=== PATIENT | male | born 1945 | race Caucasian/White ===

== ENCOUNTER 2017-04-08 05:04 | Inpatient (IN) ==
[2017-04-04 15:50] LABS: Appearance,Urine CLEAR; Bilirubin,Urine NEG (NEG); Color,Urine YELLOW; Glucose,Urine (UA) NEGATIVE (NEG); Leukocyte Esterase,Urine NEG /uL (NEG); Nitrate,Urine NEG (NEG); Protein,Urine NEG (NEG); Specific Gravity,Urine 1.009 (1.000-1.035); Urine Blood NEG mg/dL (<0.03); Urobilinogen,Urine NEG (NEG)
[2017-04-04 18:19] LABS: Basophils # (Auto) 0 K/mcL (0.0-0.3); Basophils % (Auto) 0.3 % (0.0-2.0); Eosinophils # (Auto) 0 K/mcL (0.0-0.7); Eosinophils % (Auto) 0.2 % (0.0-7.0); Granulocytes % (Auto) 80.1 % (38.0-78.0); Lymphocytes # (Auto) 0.5 K/mcL (1.5-4.8); Lymphocytes % (Auto) 12.6 % (15.5-49.0); Mean Corpuscular HGB Conc 33.8 g/dL (31.0-36.0); Mean Corpuscular Hemoglobin 36.8 pg (26.0-34.0); Monocytes # (Auto) 0.3 K/mcL (0.1-0.9); Monocytes % (Auto) 6.8 % (1.0-12.0); Platelet Count 291 K/mcL (140-440); RBC 3.02 M/mcL (4.50-5.90); Red Cell Distribution Width 20.8 % (11.5-14.5)
[2017-04-04 18:21] LABS: Blood Urea Nitrogen 5 mg/dl (8-23)
[~2017-04-08 05:04] MED LIST: ACETAMINOPHEN 500 MG TABLET PO SCH; CELECOXIB 200 MG CAPSULE PO SCH; PREGABALIN 75 MG CAPSULE PO SCH; ceFAZolin 1 GM VIAL IV SCH; oxyCODONE 10 MG TAB.ER.12H PO SCH
[2017-04-08] MEDS ORDERED: fentaNYL 250 MCG/5 ML VIAL IV ONE (07:35)
[2017-04-08] MEDS ORDERED: PROPOFOL 200 MG/20 ML VIAL IV ONE (07:35)
[2017-04-08] MEDS ORDERED: HYDROmorphone 2 MG/ML SYRINGE IV ONE (07:35)
[2017-04-08] MEDS ORDERED: GLYCOPYRROLATE 0.2 MG/ML VIAL IV ONE (07:35)
[2017-04-08] MEDS ORDERED: ePHEDrine 50 MG/ML AMPUL IV ONE (07:35)
[2017-04-08] MEDS ORDERED: ONDANSETRON 4 MG/2 ML VIAL IV ONE (07:35)
[2017-04-08] MEDS ORDERED: MIDAZOLAM 5 MG/5 ML VIAL IV ONE (07:35)
[2017-04-08] MEDS ORDERED: PHENYLEPHRINE 10 MG/ML VIAL IV ONE (07:35)
[2017-04-08] MEDS ORDERED: DEXAMETHASONE 10 MG/ML VIAL IV ONE (07:35)
[2017-04-08] MEDS ORDERED: LIDOCAINE HCL/PF 100 MG/5 ML SYRINGE IV ONE (07:35)
[2017-04-08] MEDS ORDERED: GENTAMICIN SULFATE 800 MG/20 ML VIAL IR ONE (08:02)
[2017-04-08] MEDS ORDERED: BENZOCAINE/MENTHOL 1 LOZENGE PO PRN ×2 (08:47→09:14)
[2017-04-08] MEDS ORDERED: LACTATED RINGERS 250 ML IV PRN (08:47)
[2017-04-08] MEDS ORDERED: fentaNYL 100 MCG/2 ML VIAL IV PRN (08:47)
[2017-04-08] MEDS ORDERED: METHOCARBAMOL 1,000 MG/10 ML VIAL IV PRN (08:47)
[2017-04-08] MEDS ORDERED: HYDROmorphone 2 MG/ML SYRINGE IV PRN ×2 (08:47→09:14)
[2017-04-08] MEDS ORDERED: FLUMAZENIL 0.1 MG/ML ML IV PRN (08:47)
[2017-04-08] MEDS ORDERED: MEPERIDINE 25 MG/ML SYRINGE IV PRN (08:47)
[2017-04-08] MEDS ORDERED: ONDANSETRON 4 MG/2 ML VIAL IV PRN ×2 (08:47→09:14)
[2017-04-08] MEDS ORDERED: IPRATROPIUM/ALBUTEROL 3 ML AMPUL.NEB NEB PRN (08:47)
[2017-04-08] MEDS ORDERED: diphenhydrAMINE 50 MG/ML VIAL IV PRN (08:47)
[2017-04-08] MEDS ORDERED: NALOXONE HCL 0.4 MG/ML VIAL IV PRN (08:47)
[2017-04-08] MEDS ORDERED: LACTATED RINGERS 1,000 ML IV SCH (09:00)
[2017-04-08] MEDS ORDERED: ACETAMINOPHEN 325 MG TABLET PO PRN (09:14)
[2017-04-08] MEDS ORDERED: TEMAZEPAM 15 MG CAPSULE PO PRN (09:14)
[2017-04-08] MEDS ORDERED: TRANEXAMIC ACID 1,000 MG/10 ML VIAL IV ONE (09:14)
[2017-04-08] MEDS ORDERED: KETOROLAC 15 MG/ML VIAL IV PRN (09:14)
[2017-04-08] MEDS ORDERED: MAGNESIUM HYDROXIDE 30 ML ORAL.SUSP PO PRN (09:14)
[2017-04-08] MEDS ORDERED: BISACODYL 10 MG SUPP.RECT PR PRN (09:14)
[2017-04-08] MEDS ORDERED: FLEETS ADULT ENEMA PR PRN (09:14)
[2017-04-08] MEDS ORDERED: POLYETHYLENE GLYCOL 3350 17 GM PACKET PO PRN (09:14)
--- NOTE | 2017-04-08 09:14 | Brief Operative Note ---
Date of procedure: 04/08/17 Pre-op diagnosis: Right hip avn and djd Post-op diagnosis: same Procedure: Right Total hip cemented Grafts/Implants: Yes Anesthesia: GETA Findings: avn Surgeon: Tino Reyes Radiator Cleaner: Jarvis Gibson Estimated blood loss (cc): 100 Specimens Removed/Pathology: none sent Condition: stable Disposition: PACU
[2017-04-08] MEDS ORDERED: ALBUTEROL SULFATE 1 PUFF INHALER INH PRN (09:19)
[2017-04-08] MEDS ORDERED: guaiFENesin 600 MG TAB.SR.12H PO PRN (09:30)
[2017-04-08] MEDS ORDERED: WARFARIN 5 MG TABLET PO SCH ×2 (09:30→14:00)
--- NOTE | 2017-04-08 10:07 | XRay Report ---
CLINICAL INFORMATION: Postop total hip prostheses COMPARISON: 11/16/2013 FINDINGS: The right total hip is anatomically aligned. Small amount of heterotopic ossification in the superior pericapsular region region is noted with soft tissue swelling. Enlargement of the inferior [place] acetabulum is appreciated. The left hip prostheses is anatomically aligned without evidence of loosening or infection. IMPRESSION: Right total hip prostheses is anatomically aligned. There is enlargement of the inferior [place] acetabulum compared to preoperative studies. Interpreted and Authenticated by: Hira Hanks 04/08/17
[2017-04-08] MEDS: 0.45 % SODIUM CHLORIDE 1,000 ML IV SCH ×3 (10:45→20:49)
[2017-04-08] MEDS: 0.9 % SODIUM CHLORIDE 10 ML SYRINGE IV SCH ×2 (12:46→20:49)
[2017-04-08] MEDS: ceFAZolin 1 GM VIAL IV SCH (16:10)
[2017-04-08] MEDS: BUDESONIDE 3 MG CAP.XL.24H PO SCH ×2 (16:14→20:48)
[2017-04-08] MEDS ORDERED: WARFARIN 10 MG TABLET PO ONE (17:15)
[2017-04-08] MEDS: POTASSIUM CHLORIDE 10 MEQ TABLET PO SCH ×2 (17:54→20:47)
[2017-04-08] MEDS ORDERED: WARFARIN 5 MG TABLET PO ONE (18:00)
[2017-04-08] MEDS: oxyCODONE/APAP 5/325MG TABLET PO PRN (18:07)
[2017-04-08] MEDS: MAGNESIUM OXIDE 400 MG TABLET PO SCH (20:47)
[2017-04-08] MEDS: oxyCODONE 10 MG TAB.ER.12H PO SCH (20:47)
[2017-04-08] MEDS: GLUCOSAMINE HCL 500 MG PO SCH (20:48)
[2017-04-08] MEDS: Budesonide/Formoterol Fumarate [Symbicort] 160-4.5 mcg Inhaler INH SCH (20:48)
[2017-04-08] MEDS: DOCUSATE SODIUM 100 MG CAPSULE PO SCH (20:48)
[2017-04-08] MEDS: METOPROLOL TARTRATE 25 MG TABLET PO SCH (20:48)
[2017-04-08] MEDS: TRAVOPROST 0.004% OU SCH (20:48)
[2017-04-08] MEDS: EYE OU SCH (20:48)
[2017-04-08] MEDS: SENNOSIDES 1 TABLET PO SCH (20:48)
[2017-04-08] MEDS ORDERED: ASPIRIN 325 MG ENTERIC COATED TABLET PO SCH (21:00)
[2017-04-09] MEDS: ceFAZolin 1 GM VIAL IV SCH (00:05)
[2017-04-09] MEDS: oxyCODONE/APAP 5/325MG TABLET PO PRN ×3 (03:03→16:45)
[2017-04-09] MEDS: 0.45 % SODIUM CHLORIDE 1,000 ML IV SCH ×4 (03:50→23:45)
[2017-04-09] MEDS: 0.9 % SODIUM CHLORIDE 10 ML SYRINGE IV SCH ×3 (05:08→20:30)
--- NOTE | 2017-04-09 07:56 | Orthopedic Progress Note ---
Subjective Patient information: Note initiated : 04/09/17 at 7:55 am Service Date, if different from initiated Date: [] Patient: Christian Andrews 71 y/o M admitted on 04/08/17 for Right Total Hip Arthroplasty. Chief Complaint: [minimal pain and slept well and no cp and no sob] Objective Vital signs: Vital Signs Temp Pulse Resp BP BP Pulse Ox 04/09/17 07:07 97.6 F 20 98/56 98 04/09/17 05:00 95 04/09/17 03:05 98.5 F 77 12 79/51 106/58 97 04/09/17 03:00 97 04/09/17 00:00 98.8 F 78 12 93/57 98 04/08/17 23:00 98 04/08/17 21:00 97 04/08/17 20:30 90/52 04/08/17 19:59 98.2 F 83 12 90/48 99 04/08/17 19:47 92 04/08/17 19:00 90 04/08/17 17:00 97 04/08/17 16:39 97.3 F 20 101/67 98 04/08/17 15:00 95 04/08/17 13:50 77 103/63 97 04/08/17 13:00 98 04/08/17 12:50 97.0 F 78 20 98 04/08/17 11:50 97.0 F 79 20 96 04/08/17 11:20 69 18 91/53 97 04/08/17 11:15 98 04/08/17 11:05 69 102/64 100 04/08/17 10:51 96.6 F L 78 14 103/64 100 04/08/17 10:35 97.2 F 82 18 109/71 97 04/08/17 10:15 75 20 116/46 95 04/08/17 10:00 75 12 111/68 100 04/08/17 09:42 77 13 113/73 100 04/08/17 09:27 97.6 F 73 10 L 127/79 100 Intake and Output 04/08/17 04/09/17 04/09/17 21:59 05:59 13:59 Intake Total 1600 / 1600 1032 / 1032 Output Total 575 / 575 210 / 210 Balance 1600 / 1600 457 / 457 -210 / -210 Intake: IV 1000 / 1000 832 / 832 Sodium Chloride 0.45% 1, 1000 / 1000 832 / 832 000 ml @ 100 mls/hr IV . Q10H CLEMENTE Rx#:[id number] Oral 600 / 600 200 / 200 Output: Void Amount 575 / 575 210 / 210 Straight 500 / 500 Other: Meal Dinner Percent of Meal Consumed 100% Feeding Ability Independent Weight 209 lb 8 oz Intake & Output: Intake & Output 04/08/17 04/09/17 04/09/17 21:59 05:59 13:59 Intake Total 1600 / 1600 1032 / 1032 Output Total 575 / 575 210 / 210 Balance 1600 / 1600 457 / 457 -210 / -210 Weight 209 lb 8 oz Intake: IV 1000 / 1000 832 / 832 Sodium Chloride 0.45% 1, 1000 / 1000 832 / 832 000 ml @ 100 mls/hr IV . Q10H CLEMENTE Rx#:[id number] Oral 600 / 600 200 / 200 Output: Void Amount 575 / 575 210 / 210 Straight 500 / 500 Other: Meal Dinner Percent of Meal Consumed 100% Feeding Ability Independent Incision clean and dry: Yes Dressing: Yes clean Weight bearing status: full Neurological exam IM: Yes oriented X3, Yes neurovascular intact Extremities exam IM: Yes Foot pink and warm (plan dc to nh), Yes neurovascular intact - Allied Health Allied health notes reviewed: social work - Labs CBC & BMP: 04/09/17 04:00 04/04/17 14:37 Labs: Orthopedic Labs 04/09/17 04/04/17 04:00 14:36 PT 13.3 13.5 INR 1.0 1.0 APTT 28 04/09/17 04/04/17 04:00 14:36 Hgb 11.1 L Hct 23.7 L 33.0 L
[2017-04-09] MEDS: OMEPRAZOLE 20 MG CAPSULE PO SCH (07:57)
[2017-04-09] MEDS: FERROUS GLUCONATE 324 MG TABLET PO SCH (10:09)
[2017-04-09] MEDS: MULTIVIT,THER IRON,CA,FA & MIN 1 TABLET PO SCH (10:10)
[2017-04-09] MEDS: ENOXAPARIN 40 MG/0.4 ML SYRINGE SQ SCH (10:10)
[2017-04-09] MEDS: MAGNESIUM OXIDE 400 MG TABLET PO SCH ×2 (10:10→20:29)
[2017-04-09] MEDS: POTASSIUM CHLORIDE 10 MEQ TABLET PO SCH ×4 (10:10→20:29)
[2017-04-09] MEDS: FLUoxetine HCL 20 MG CAPSULE PO SCH (10:10)
[2017-04-09] MEDS ORDERED: 0.9 % SODIUM CHLORIDE 250 ML IV SCH (10:45)
[2017-04-09] MEDS: DOCUSATE SODIUM 100 MG CAPSULE PO SCH ×2 (11:23→20:29)
[2017-04-09] MEDS: METOPROLOL TARTRATE 25 MG TABLET PO SCH ×2 (11:24→20:30)
[2017-04-09] MEDS: LOSARTAN 50 MG TABLET PO SCH (11:24)
[2017-04-09] MEDS: MERCAPTOPURINE 50 MG TABLET PO SCH (11:28)
[2017-04-09] MEDS: HYDROCHLOROTHIAZIDE 25 MG TABLET PO SCH (11:28)
[2017-04-09] MEDS: oxyCODONE 10 MG TAB.ER.12H PO SCH ×2 (11:28→20:29)
[2017-04-09] MEDS: BALSALAZIDE DISODIUM 750 MG PO SCH (11:29)
[2017-04-09] MEDS: Budesonide/Formoterol Fumarate [Symbicort] 160-4.5 mcg Inhaler INH SCH ×2 (11:29→20:29)
[2017-04-09] MEDS: GLUCOSAMINE HCL 500 MG PO SCH ×2 (11:29→20:29)
[2017-04-09] MEDS: SAW PALMETTO 160 MG PO SCH (11:30)
[2017-04-09] MEDS: BUDESONIDE 3 MG CAP.XL.24H PO SCH ×3 (11:30→20:30)
[2017-04-09] MEDS: WARFARIN 5 MG TABLET PO SCH (13:44)
[2017-04-09] MEDS: TRAVOPROST 0.004% OU SCH (20:29)
[2017-04-09] MEDS: EYE OU SCH (20:29)
[2017-04-09] MEDS: SENNOSIDES 1 TABLET PO SCH (20:29)
[2017-04-10] MEDS: oxyCODONE/APAP 5/325MG TABLET PO PRN ×4 (03:03→18:03)
[2017-04-10] MEDS: 0.9 % SODIUM CHLORIDE 10 ML SYRINGE IV SCH ×3 (04:56→20:54)
--- NOTE | 2017-04-10 07:17 | Orthopedic Progress Note ---
Subjective Patient information: Note initiated : 04/10/17 at 7:16 am Service Date, if different from initiated Date: [] Patient: Christian Andrews 71 y/o M admitted on 04/08/17 for Right Total Hip Arthroplasty. Chief Complaint: [confused but alert and mobile with minimal pain] Objective Vital signs: Vital Signs Temp Pulse Resp BP Pulse Ox 04/10/17 04:56 96 04/10/17 03:26 98.3 F 79 12 158/74 95 04/10/17 03:00 95 04/10/17 00:53 97 04/10/17 00:00 98.4 F 74 12 148/73 100 04/09/17 22:58 96 04/09/17 21:00 97 04/09/17 19:47 97.9 F 77 12 118/66 97 04/09/17 19:00 97 04/09/17 17:00 94 04/09/17 16:52 104/62 04/09/17 16:50 110/69 04/09/17 16:45 129/75 04/09/17 15:22 98.0 F 18 104/65 96 04/09/17 14:56 95 04/09/17 13:00 94 04/09/17 11:42 97.6 F 18 119/63 93 04/09/17 11:00 94 04/09/17 10:22 90/51 98 04/09/17 09:00 98 04/09/17 08:42 87/56 Intake and Output 04/09/17 04/10/17 04/10/17 21:59 05:59 13:59 Intake Total 1460 / 1460 600 / 600 Output Total 1200 / 1200 925 / 925 Balance 260 / 260 -325 / -325 Intake: Oral 1160 / 1160 600 / 600 Blood Product 300 / 300 Output: Urine Catheter Amount 1200 / 1200 925 / 925 Other: Meal Dinner Percent of Meal Consumed 100% Weight 210 lb 8 oz Intake & Output: Intake & Output 04/09/17 04/10/17 04/10/17 21:59 05:59 13:59 Intake Total 1460 / 1460 600 / 600 Output Total 1200 / 1200 925 / 925 Balance 260 / 260 -325 / -325 Weight 210 lb 8 oz Intake: Oral 1160 / 1160 600 / 600 Blood Product 300 / 300 Output: Urine Catheter Amount 1200 / 1200 925 / 925 Other: Meal Dinner Percent of Meal Consumed 100% Incision: Yes healing Incision clean and dry: Yes Dressing: Yes clean Weight bearing status: full Neurological exam IM: Yes neurovascular intact Extremities exam IM: Yes Foot pink and warm, Yes neurovascular intact (will need snf because of weakness) - Labs CBC & BMP: 04/09/17 04:00 04/04/17 14:37 Labs: Orthopedic Labs 04/10/17 04/09/17 04/04/17 05:41 04:00 14:36 PT Pending 13.3 13.5 INR Pending 1.0 1.0 APTT 28 04/09/17 04/04/17 04:00 14:36 Hgb 11.1 L Hct 23.7 L 33.0 L
--- NOTE | 2017-04-10 07:18 | Discharge Summary ---
Ortho Discharge - TKA - Patient Instructions Diet: Regular Diet Activity: activity as tolerated, weight bearing as tolerated Total Knee Protocol: For Total Knee: Start ROM ADOLFO with stationary bike or rocking chair. Work on gaining full extension of knee. Posterior dislocation precautions provided. Hip abductor strengthening and gait training instructions provided. Apply Cryocuff as instructed. Dressing Care: Aquacel Ag - leave on for 5 days Patient Education: Total Hip Replacement (DC) Additional Instructions: Discharge Instructions: Do the exercises at home that physical therapy gave you. Take your prescription, photo ID, insurance cards, and current medication list with you to your first physical therapy appointment. Take your prescription to greens picker any medication or equipment (such as walker, crutches, toilet riser or C.P.M.) Wear comfortable clothing for your physical therapy. Weight bearing as tolerated. If you have the Aquacel Ag dressing, leave in place for 7 days then remove. If dressing becomes soiled (turns black), remove and use gauze 4x4 dressing and silvasorb ointment and change daily. Keep incision clean and dry. If you have Dermabond (a dressing with a mesh-like appearance), leave open to air. You may start showering on post op day #2. The Dermabond dressing can get wet, do not scrub dressing. Pat dry. To avoid constipation while taking any narcotic pain medication, take an over the counter stool softener/laxative. Use your Cryocuff or ice packs as directed, on for 20 minutes at a time throughout the day. This and elevation will help with pain and swelling. Call your physician for fevers above 100.5 or pain not controlled by medication. Your prescriptions are with your discharge information. Some medications were electronically transmitted to your pharmacy of choice. - Follow Up Plan Follow Up Appointments: Tino Reyes MD [Physician] - 04/23/17 9:20 am Disposition: Xfer SNF Prognosis: Good Rehab Potential: Good I certify that the patient requires SNF services: Yes (post total hip) Overall status at discharge: patient is progressing back to baseline
[2017-04-10] MEDS: OMEPRAZOLE 20 MG CAPSULE PO SCH (07:38)
[2017-04-10] MEDS: DOCUSATE SODIUM 100 MG CAPSULE PO SCH ×2 (08:28→21:39)
[2017-04-10] MEDS: POTASSIUM CHLORIDE 10 MEQ TABLET PO SCH ×4 (08:28→20:52)
[2017-04-10] MEDS: FERROUS GLUCONATE 324 MG TABLET PO SCH (08:28)
[2017-04-10] MEDS: FLUoxetine HCL 20 MG CAPSULE PO SCH (08:29)
[2017-04-10] MEDS: LOSARTAN 50 MG TABLET PO SCH (08:29)
[2017-04-10] MEDS: HYDROCHLOROTHIAZIDE 25 MG TABLET PO SCH (08:29)
[2017-04-10] MEDS: METOPROLOL TARTRATE 25 MG TABLET PO SCH ×2 (08:29→20:52)
[2017-04-10] MEDS: MAGNESIUM OXIDE 400 MG TABLET PO SCH ×2 (08:29→20:52)
[2017-04-10] MEDS: MULTIVIT,THER IRON,CA,FA & MIN 1 TABLET PO SCH (08:29)
[2017-04-10] MEDS: ENOXAPARIN 40 MG/0.4 ML SYRINGE SQ SCH (08:29)
[2017-04-10] MEDS: BUDESONIDE 3 MG CAP.XL.24H PO SCH ×3 (08:30→21:39)
[2017-04-10] MEDS: SAW PALMETTO 160 MG PO SCH (08:30)
[2017-04-10] MEDS: GLUCOSAMINE HCL 500 MG PO SCH ×2 (08:31→21:40)
[2017-04-10] MEDS: MERCAPTOPURINE 50 MG TABLET PO SCH (08:31)
[2017-04-10] MEDS: BALSALAZIDE DISODIUM 750 MG PO SCH (08:31)
[2017-04-10] MEDS: Budesonide/Formoterol Fumarate [Symbicort] 160-4.5 mcg Inhaler INH SCH ×2 (08:38→20:53)
[2017-04-10] MEDS: 0.45 % SODIUM CHLORIDE 1,000 ML IV SCH ×2 (11:34→21:41)
[2017-04-10] MEDS: WARFARIN 5 MG TABLET PO SCH (13:47)
[2017-04-10] MEDS: EYE OU SCH (20:53)
[2017-04-10] MEDS: TRAVOPROST 0.004% OU SCH (20:53)
[2017-04-10] MEDS: SENNOSIDES 1 TABLET PO SCH (21:40)
[2017-04-11] MEDS: 0.9 % SODIUM CHLORIDE 10 ML SYRINGE IV SCH (05:46)
[2017-04-11] MEDS: OMEPRAZOLE 20 MG CAPSULE PO SCH (07:44)
[2017-04-11] MEDS: POTASSIUM CHLORIDE 10 MEQ TABLET PO SCH (07:45)
[2017-04-11] MEDS: 0.45 % SODIUM CHLORIDE 1,000 ML IV SCH (10:45)
[2017-04-11] MEDS: DOCUSATE SODIUM 100 MG CAPSULE PO SCH (10:46)
[2017-04-11] MEDS: LOSARTAN 50 MG TABLET PO SCH (10:47)
[2017-04-11] MEDS: MAGNESIUM OXIDE 400 MG TABLET PO SCH (10:47)
[2017-04-11] MEDS: ENOXAPARIN 40 MG/0.4 ML SYRINGE SQ SCH (10:47)
[2017-04-11] MEDS: MULTIVIT,THER IRON,CA,FA & MIN 1 TABLET PO SCH (10:47)
[2017-04-11] MEDS: METOPROLOL TARTRATE 25 MG TABLET PO SCH (10:47)
[2017-04-11] MEDS: HYDROCHLOROTHIAZIDE 25 MG TABLET PO SCH (10:48)
[2017-04-11] MEDS: FLUoxetine HCL 20 MG CAPSULE PO SCH (10:48)
[2017-04-11] MEDS: BUDESONIDE 3 MG CAP.XL.24H PO SCH (10:48)
[2017-04-11] MEDS: BALSALAZIDE DISODIUM 750 MG PO SCH (10:49)
[2017-04-11] MEDS: GLUCOSAMINE HCL 500 MG PO SCH (10:49)
[2017-04-11] MEDS: Budesonide/Formoterol Fumarate [Symbicort] 160-4.5 mcg Inhaler INH SCH (10:49)
[2017-04-11] MEDS: MERCAPTOPURINE 50 MG TABLET PO SCH (10:49)
[2017-04-11] MEDS: SAW PALMETTO 160 MG PO SCH (10:50)
[2017-04-11] MEDS: FERROUS GLUCONATE 324 MG TABLET PO SCH (10:52)
--- NOTE | 2017-04-12 14:19 | Operative Note ---
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 PROCEDURE: Right total hip arthroplasty, cemented components. SURGEON: Tino Reyes MD PHYSICALLY IMPAIRED TEACHER: Jarvis Gibson PA-C. ANESTHESIA: General LMA anesthesia. COMPLICATIONS CONDITION: Stable. DISPOSITION: To PACU. ESTIMATED BLOOD LOSS: About 100 mL DESCRIPTION OF PROCEDURE: The patient was brought to the operating room and put to sleep with general anesthesia. Once asleep, the patient had the right hip sterilely prepped and draped in the usual sterile fashion and confirmed as the operative site. Ioban had been placed over the skin and a superior posterior approach performed. Once we dislocated the hip showing severe deformity of the femoral head we then made our neck cut at prescribed length prior to templating before the case. Once this was done, we subluxed the hip anteriorly and then reamed the cup up to a size 53 and implanted a 54 cup with the large 40 mm screw with good fixation, 40 degrees of inclination and 20 degrees of anteversion was positioned in the cup. Large spurs were removed and the remnants of the labrum was removed as well. We placed a dual mobility liner. Once this was done, we then broached up to the size 7, cemented into place a size 7 stem and then trialed this with a standard poly with a standard neck length and a 50 mm head. Once this had been reduced this was somewhat unstable and images confirmed that leg lengths were nearly perfectly equal. At this point, I then cemented into place a size 7 cemented stem with 15 to 20 degrees of anteversion. Once dried, we then trialed +2.5 neck length with a dual mobility ball and head. This was reduced. This gave us much better stability. The final implant was placed. We then irrigated thoroughly and then conditioned the capsule and repaired this into place. Once this was done, we then irrigated thoroughly and closed the fascial layer with 0 Vicryl and closed the skin with 2-0 Vicryl and dipika superficially. The patient tolerated this well. There was no complication. Sterile bandage was applied. The patient left the operating room with a hip abduction pillow for safety. KARINA:andrea Job ID: [id number] Doc ID: [id number] Tino Reyes MD
== END 2017-04-11 11:30 | DRG 470 ==
LOC: MEDSUR 05:04
PROVIDERS: ADMIT Orthopaedic Surgery; ATTEND Orthopaedic Surgery

== ENCOUNTER 2017-06-18 15:52 | Inpatient (IN) ==
--- NOTE | 2017-06-18 16:37 | Emergency Department Note ---
Recheck HPI - General Chief Complaint: Recheck/Abnormal Lab/Rx Stated Complaint: neck pain, full body pain Time Seen by Provider: 06/18/17 16:01 Source: patient Mode of arrival: wheelchair Limitations: no limitations - History of Present Illness HPI Narrative: 71-year-old male seen yesterday in the ED for a fall on the sidewalk. drinking a lot of alcohol. Does not remember much. Had a head and facial CT were read as negative. The radiologist did call the patient in do some C-spine x-rays patient states he has had chronic neck pain with no acute pain. Pain is located in the lower cervical spine region not in the upper. Latonya was concerned somewhat around the dens region. She has been put in a c-collar when he arrives. Seems to have had no alcohol today. INR was 4.0 yesterday and he was advised to hold his Coumadin. Patient states he has a history of heavy alcohol usage - Related Data Home Medications Medication Instructions Recorded Confirmed Ascorbic Acid [Ascorbic Acid with 500 mg PO QDAY 04/15/15 06/17/17 Rh] Aspirin [Ecotrin] 81 mg PO QDAY 04/15/15 06/17/17 Cholecalciferol (Vitamin D3) 2,000 unit PO QIDP 04/15/15 06/17/17 [Vitamin D3] Ipratropium/Albuterol Sulfate 2 puff INH QID PRN 04/15/15 06/17/17 [Combivent] Nitroglycerin [Nitrostat] 0.4 mg SL Q5M PRN 04/15/15 06/17/17 Saw Purcell 160 mg PO QDAY 04/15/15 06/17/17 glucosamine HCl 500 mg tablet 500 mg PO BID tab 11/14/15 06/17/17 multivitamin with minerals capsule 1 tab-cap PO QDAY cap 11/14/15 06/17/17 balsalazide 750 mg capsule 1 cap PO DAILY 30 Days 02/15/17 06/17/17 docusate sodium 100 mg capsule 100 mg PO BID PRN 05/15/17 06/17/17 adalimumab 40 mg/0.8 mL 40 mg SUB-Q QWEEK ml 05/20/17 06/17/17 subcutaneous syringe kit Previous Rx's Medication Instructions Recorded travoprost (benzalkonium) 0.004 % 1 drp OPHTHALMIC HS #5 ml 05/01/16 eye drops ferrous gluconate 324 mg (38 mg 324 mg PO QDAY #100 tab 05/10/16 iron) tablet guaifenesin 400 mg tablet 400 mg PO Q4H PRN #30 tab 09/20/16 atorvastatin 40 mg tablet 20 mg PO QDAY #30 tab 09/26/16 Permanent Disabled Parking #2 each 10/25/16 albuterol sulfate HFA 90 2 puff INHALATION Q4HP PRN #8.5 g 12/04/16 mcg/actuation aerosol inhaler magnesium oxide 400 mg tablet 400 mg PO BID #60 tab 12/10/16 miscellaneous medical supply misc See Dose Instructions .ROUTE 12/10/16 .MEDSUPPLY #1 each budesonide-formoterol HFA 160 2 puff INHALATION BID #10.2 g 01/14/17 mcg-4.5 mcg/actuation aerosol inhaler oxycodone-acetaminophen 5 mg-325 1 tab PO Q4H PRN #60 tab 05/10/17 mg tablet fludrocortisone 0.1 mg tablet 0.1 mg PO BID #60 tab 05/20/17 hydrocodone 7.5 mg-acetaminophen 1 tab PO Q6H PRN #100 tab 05/20/17 325 mg tablet metoprolol tartrate 25 mg tablet 25 mg PO BID #60 tab 05/28/[address] - ER 3 mg 3 mg PO TID #90 each 06/13/17 capsule,delayed,extended release fluoxetine 20 mg capsule 20 mg PO DAILY #30 cap 06/13/17 mercaptopurine 50 mg tablet 50 mg PO QDAY #30 tab 06/13/17 omeprazole 20 mg capsule,delayed 20 mg PO QDAY #30 cap 06/13/17 release potassium chloride ER 20 mEq 30 meq PO QID #180 tab 06/14/17 tablet,extended release warfarin 5 mg tablet 10 mg PO .COMPLEX #20 tab 06/18/17 Allergies Allergy/AdvReac Type Severity Reaction Status Date / Time No Known Drug Allergies Allergy Verified 03/25/17 11:40 Review of Systems All systems ED: reviewed and negative except as stated. Constitutional: Denies: fever, chills Eyes: Denies: eye pain ENT ED: Denies: ear pain Cardiovascular: Denies: chest pain Respiratory: Denies: cough, dyspnea Musculoskeletal: Reports: as per HPI, other (Left sided facial contusions, left knee contusion with abrasions) Past Medical History - Past Medical History Medical history: Reports: arthritis, asthma, coronary artery disease, GERD, hyperlipidemia, hypertension, pulmonary embolus, other (inflammatory bowel disease, substance abuse, chronic anemia). Denies: CVA, diabetes, myocardial infarction Surgical history ED: Reports: angioplasty/stent, hip replacement Family history: Reports: non-contributory - Social History smoking status: Former smoker Alcohol use: Reports: Heavy (in past states quit 1 m ago), Recent Drug use: Reports: unknown (substance abuse in past) Physical Exam - General Limitations: no limitations General appearance: alert - Head Head exam: other (left side facial contusions) - Eye Eye exam: Present: normal appearance, PERRL - ENT ENT exam: normal exam, normal oropharynx, mucous membranes moist - Neck Neck exam: Present: trachea midline, tenderness - Chest Chest inspection: Present: normal inspection, symmetric chest wall rise. Absent : tenderness - Respiratory Respiratory exam: Present: normal lung sounds bilaterally. Absent: respiratory distress, wheezes - Cardiovascular Cardiovascular exam: Present: regular rate, normal rhythm. Absent: bradycardia , tachycardia - Abdominal Exam Abdominal exam: Present: soft, normal bowel sounds. Absent: distention, tenderness, guarding, rebound, rigidity - exam: Present: normal inspection. Absent: testicular tenderness - Extremities Exam Extremities exam: Present: normal inspection, full ROM. Absent: tenderness - Back Exam Back exam: Present: normal inspection, full ROM. Absent: tenderness - Expanded Neurological Exam Patient oriented to: Present: person, place, time Speech: Present: fluid speech Cranial nerves: EOM function (II, III, IV, ): Normal, facial sensation (V): Normal, facial palsy (VII): Normal, gag reflex (IX): Normal, spinal accessory function (XI): Normal, tongue deviation (XII): Normal Cerebellar function: finger to nose: Normal Motor strength - LUE: 4/5 Motor strength - RUE: 4/5 Motor strength - LLE: 4/5 Motor strength - RLE: 4/5 Upper motor neuron exam: Babinski sign: Absent bilaterally Sensory exam upper extremity: Normal: light touch, pin prick Sensory exam lower extremity: Normal: light touch, pin prick DTR: 2+: patellar (L), patellar (R) Coma Scale Eye Opening: Spontaneous Coma Scale Motor Response: Obeys Commands Coma Scale Verbal Response: Oriented Coma Scale Total: 15 - Psychiatric Psychiatric exam: Present: normal affect, normal mood - Skin Skin exam: Present: warm, dry Course Vital Signs Temperature 98.9 F 06/18/17 15:52 Pulse Rate 85 06/18/17 15:52 Respiratory Rate 20 06/18/17 15:52 Blood Pressure 158/88 06/18/17 15:52 Pulse Oximetry (%) 99 06/18/17 15:52 Temperature 98.9 F 06/18/17 15:52 Pulse Rate 76 06/18/17 19:46 Respiratory Rate 18 06/18/17 20:16 Blood Pressure 144/90 06/18/17 20:16 Pulse Oximetry (%) 96 06/18/17 19:46 Recheck/Abnormal Lab/Rx - MDM Narrative Medical decision making narrative: xray oc c spine show Type 11 dens fracture most likely chronic but Dr Bajwa would like MRI tomorrow to determine acuity.Liver function test are normal etoh <.01 INR has come back down to 3.[address] Higginbotham consulted and patient to be admitted for observation and MRI tomorrow. to be keep in stiff cervical collar till mri - Lab Data Result diagrams: 06/18/17 16:14 06/18/17 16:14 Lab Results 06/18/17 06/18/17 06/18/17 Range/Units 16:14 16:14 16:14 WBC 3.5 L (4.5-11.0) K/mcL RBC 2.74 L (4.50-5.90) M/mcL Hgb 9.8 L (13.5-16.5) g/dL Hct 28.8 L (41.0-55.0) % MCV 105.1 H (80.0-100.0) fL MCH 35.7 H (26.0-34.0) pg MCHC 34.0 (31.0-36.0) g/dL RDW 16.9 H (11.5-14.5) % Plt Count 201 (140-440) K/mcL MPV 7.0 L (7.4-10.4) fL Gran % 71.8 (38.0-78.0) % Lymph % (Auto) 13.7 L (15.5-49.0) % Wilkinson % (Auto) 13.3 H (1.0-12.0) % Eos % (Auto) 0.4 (0.0-7.0) % Baso % (Auto) 0.8 (0.0-2.0) % Gran # 2.5 (1.8-8.0) K/mcL Lymph # (Auto) 0.5 L (1.5-4.8) K/mcL Wilkinson # (Auto) 0.5 (0.1-0.9) K/mcL Eos # (Auto) 0 (0.0-0.7) K/mcL Baso # (Auto) 0 (0.0-0.3) K/mcL PT 38.6 H (11.9-14.5) sec INR 3.8 H (0.9-1.1) Sodium 138 (133-145) mmol/L Potassium 3.7 (3.3-5.1) mmol/L Chloride 101 (96-108) mmol/L Carbon Dioxide 25 (22-30) mmol/L Anion Gap 12.0 (8-16) BUN 9 (8-23) mg/dl Creatinine 0.7 (0.7-1.2) mg/dl GFR Calculation 96 Glucose 91 (70-105) mg/dL Calcium 7.9 L (8.6-10.4) mg/dl Total Bilirubin 0.9 (0.0-1.0) mg/dL AST 26 (0-37) U/l ALT 19 (0-40) U/l Alkaline Phosphatase 99 (39-117) U/L Total Protein 5.5 L (5.9-8.4) gm/dL Albumin 3.3 (3.2-5.2) gm/dL Globulin 2.2 (2.2-3.7) gm/dL Albumin/Globulin Ratio 1.5 (1.0-2.3) Ethyl Alcohol (<0.010) gm/dl 06/18/17 Range/Units 16:14 WBC (4.5-11.0) K/mcL RBC (4.50-5.90) M/mcL Hgb (13.5-16.5) g/dL Hct (41.0-55.0) % MCV (80.0-100.0) fL MCH (26.0-34.0) pg MCHC (31.0-36.0) g/dL RDW (11.5-14.5) % Plt Count (140-440) K/mcL MPV (7.4-10.4) fL Gran % (38.0-78.0) % Lymph % (Auto) (15.5-49.0) % Wilkinson % (Auto) (1.0-12.0) % Eos % (Auto) (0.0-7.0) % Baso % (Auto) (0.0-2.0) % Gran # (1.8-8.0) K/mcL Lymph # (Auto) (1.5-4.8) K/mcL Wilkinson # (Auto) (0.1-0.9) K/mcL Eos # (Auto) (0.0-0.7) K/mcL Baso # (Auto) (0.0-0.3) K/mcL PT (11.9-14.5) sec INR (0.9-1.1) Sodium (133-145) mmol/L Potassium (3.3-5.1) mmol/L Chloride (96-108) mmol/L Carbon Dioxide (22-30) mmol/L Anion Gap (8-16) BUN (8-23) mg/dl Creatinine (0.7-1.2) mg/dl GFR Calculation Glucose (70-105) mg/dL Calcium (8.6-10.4) mg/dl Total Bilirubin (0.0-1.0) mg/dL AST (0-37) U/l ALT (0-40) U/l Alkaline Phosphatase (39-117) U/L Total Protein (5.9-8.4) gm/dL Albumin (3.2-5.2) gm/dL Globulin (2.2-3.7) gm/dL Albumin/Globulin Ratio (1.0-2.3) Ethyl Alcohol < 0.010 (<0.010) gm/dl Disposition Pt seen by CREDIT MANAGER/PA only: No Clinical Impression: Nondisplaced type II dens fracture Summary: will get mri tomorrow. Disposition: Xfer As Outpt/Obs ([facility]) Condition: Fair Referrals: Dinesh Mayberry MD [Primary Care Provider] - Time of Disposition: 20:33
--- NOTE | 2017-06-18 16:50 | XRay Report ---
CLINICAL INFORMATION: Type II dens fracture resulting seen on recent CT - likely chronic. Only minimal neck pain. Evaluate for stability. COMPARISON: None. FINDINGS: Type II transverse fracture through the dens base is identified. There is no significant motion of the dens fragment with respect to the C2 vertebral body between flexion and extension. Moderate degenerative disc and facet disease present at C3-4 and C4-5 IMPRESSION: Transverse type II nondisplaced fracture of the dens base - almost certainly chronic. There is no motion of the dens fragment between flexion and extension to suggest instability. Cervical MRI recommended to determine acuity Interpreted and Authenticated by: Hira Hanks 06/18/17
[2017-06-18] MEDS ORDERED: POTASSIUM CHLORIDE 20 MEQ, MAGNESIUM SULFATE 16.24 MEQ, MVI, ADULT NO.4 WITH VIT K 10 M... IV SCH ×2 (17:00→17:45)
[2017-06-18 17:01] LABS: Basophils # (Auto) 0 K/mcL (0.0-0.3); Basophils % (Auto) 0.8 % (0.0-2.0); Eosinophils # (Auto) 0 K/mcL (0.0-0.7); Eosinophils % (Auto) 0.4 % (0.0-7.0); Granulocytes % (Auto) 71.8 % (38.0-78.0); Lymphocytes # (Auto) 0.5 K/mcL (1.5-4.8); Lymphocytes % (Auto) 13.7 % (15.5-49.0); Mean Cell Volume 105.1 fL (80.0-100.0); Mean Corpuscular Hemoglobin 35.7 pg (26.0-34.0); Monocytes # (Auto) 0.5 K/mcL (0.1-0.9); Monocytes % (Auto) 13.3 % (1.0-12.0); Platelet Count 201 K/mcL (140-440); RBC 2.74 M/mcL (4.50-5.90); Red Cell Distribution Width 16.9 % (11.5-14.5)
[2017-06-18 17:20] LABS: ALT/SGPT 19 U/l (0-40); Albumin 3.3 gm/dL (3.2-5.2); Albumin/Globulin Ratio 1.5 (1.0-2.3); Alkaline Phosphatase 99 U/L (39-117); Blood Urea Nitrogen 9 mg/dl (8-23)
[2017-06-18] MEDS ORDERED: THIAMINE 100 MG/ML VIAL ONE (17:44)
[2017-06-18] MEDS ORDERED: HYDROcodone/APAP 5/325MG TABLET PO ONE ×2 (17:49→18:46)
--- NOTE | 2017-06-18 21:01 | Internal Med History&Physical ---
Medical - H&P: HPI Patient information: Note initiated : 06/18/17 at 8:59 pm Patient: Christian Andrews 71 y/o M admitted on for neck pain, full body pain. History of present illness: Mr. Andrews is a 71 year old these, chronic AC therapy, and probable chronic alcohol abuse. He apparently took a bad fall day before yesterday, and presented to the emergency room for evaluation. His current review of his x- rays showed possible dens fracture, so he was brought back today for more x- rays. CT scan confirms a dens fracture, but could not say for sure if it was chronic. Radiologist recommended that the patient be watched overnight, and undergo MRI in the morning, to decide acuity. The patient admits he had had about 6 drinks the evening of the fall. It was a ground-level fall onto concrete. He is not entirely sure if he hit his head, but it would appear that he did. He has had significant pain since then, including pain in his head and face, neck, bilateral hands, left leg. Prior to his fall, he said he was feeling fine. He had not been having fever chills, headaches or dizziness, new eye or ear symptoms, sore throat or cough, chest pain or palpitations, shortness of breath, abdominal pain, nausea or vomiting, diarrhea or constipation or dysuria. Now he says his vision may be a little blurry. His main complaint is just of generalized pain. He lives alone. He says he has a niece and an uncle here in town. He says they do know that he had a bad fall. Medical History Anemia (Chronic) Asthma (Chronic) Bursitis (Chronic 09/11/06) Shoulder Crohn's disease (Chronic) Fatigue (Chronic) Gastroesophageal reflux (Chronic) Hematochezia (Chronic) (08/30/2014-Dr Samano) Hyperlipidemia (Chronic 09/11/06) Hypokalemia (Chronic) residential current use of anticoagulant (Chronic) Osteoarthritis (Chronic) Pulmonary embolism (Chronic) Ulcerative colitis (Chronic 12/07/08) Dehydration (Resolved) Orthostatic hypotension (Resolved) chronic alcohol use Surgical History History of cardiac catheterization (Chronic 03/07/15) History of colonoscopy (Chronic 09/16/14) Dr. Ramos: [facility] Medication List adalimumab 40 mg SQ 14 adalimumab 40 mg SQ Q2W albuterol sulfate HFA 90 mcg/actuation 2 puffs Inhalation Q4HP PRN ascorbic acid (vitamin C) 500 mg PO QDAY aspirin 81 mg PO QDAY atorvastatin 20 mg (1/2 x 40 mg) PO QDAY balsalazide 1 cap PO DAILY [address] - ER 3 mg PO TID budesonide-formoterol 160-4.5 mcg/actuation 2 puffs Inhalation BID cholecalciferol (vitamin D3) 2,000 units PO QIDP docusate sodium (Colace) 100 mg PO BID PRN ferrous gluconate 324 mg PO QDAY fludrocortisone 0.1 mg PO DAILY fluoxetine 20 mg PO DAILY glucosamine HCl 500 mg PO BID guaifenesin (Mucus Relief) 400 mg PO Q4H PRN ipratropium-albuterol 20-100 mcg/actuation 2 puffs INH QID PRN magnesium oxide 400 mg PO BID mercaptopurine 50 mg PO QDAY metoprolol tartrate 12.5 mg (1/2 x 25 mg) PO BID miscellaneous medical supply misc (Blood Pressure Cuff) As directed multivitamin with minerals capsule 1 tab-cap PO QDAY nitroglycerin 0.4 mg SL Q5M PRN omeprazole 20 mg PO QDAY oxycodone-acetaminophen 5-325 mg 1 tab PO Q4H PRN [Permanent Disabled Parking ] potassium chloride ER 30 mEq (3 x 10 mEq) PO BID saw [place] 160 mg PO QDAY travoprost (benzalkonium) 0.004% 1 drp ophthalmic (eye) HS warfarin 7.5 mg (1.5 x 5 mg) PO QDAY Allergies/Adverse Reactions No Known Drug Allergies Allergy (Verified 03/25/17 11:40) Family History Patient believes his father of a GI cancer. He believes his mother had cancer, but cannot recall what kind. Social History Patient smoked from age 17 until about age 68. Quit 3 years ago. He admits to drinking between 2 and 6 drinks per day, generally spirits and cola. Use drugs. He lives alone. Has a niece and an uncle that live in [facility] Medical - H&P: Meds Home Medications Medication Instructions Recorded Confirmed Type Ascorbic Acid [Ascorbic Acid with 500 mg PO QDAY 04/15/15 06/19/17 History Rh] Aspirin [Ecotrin] 81 mg PO QDAY 04/15/15 06/19/17 History Cholecalciferol (Vitamin D3) 2,000 unit PO QIDP 04/15/15 06/19/17 History [Vitamin D3] Ipratropium/Albuterol Sulfate 2 puff INH QID PRN 04/15/15 06/19/17 History [Combivent] Nitroglycerin [Nitrostat] 0.4 mg SL Q5M PRN 04/15/15 06/19/17 History Saw [place] 160 mg PO QDAY 04/15/15 06/19/17 History multivitamin with minerals capsule 1 tab-cap PO QDAY cap 11/14/15 06/19/17 History travoprost (benzalkonium) 0.004 % 1 drp OPHTHALMIC HS #5 ml 05/01/16 06/19/17 Rx eye drops ferrous gluconate 324 mg (38 mg 324 mg PO QDAY #100 tab 05/10/16 06/19/17 Rx iron) tablet guaifenesin 400 mg tablet 400 mg PO Q4H PRN #30 tab 09/20/16 06/19/17 Rx atorvastatin 40 mg tablet 20 mg PO QDAY #30 tab 09/26/16 06/19/17 Rx Permanent Disabled Parking #2 each 10/25/16 05/20/17 Rx albuterol sulfate HFA 90 2 puff INHALATION Q4HP PRN #8.5 g 12/04/16 06/19/17 Rx mcg/actuation aerosol inhaler magnesium oxide 400 mg tablet 400 mg PO BID #60 tab 12/10/16 06/19/17 Rx budesonide-formoterol HFA 160 2 puff INHALATION BID #10.2 g 01/14/17 06/19/17 Rx mcg-4.5 mcg/actuation aerosol inhaler balsalazide 750 mg capsule 1 cap PO DAILY 30 Days 02/15/17 06/19/17 History docusate sodium 100 mg capsule 100 mg PO BID PRN 05/15/17 06/19/17 History adalimumab 40 mg/0.8 mL 40 mg SUB-Q QWEEK ml 05/20/17 06/19/17 History subcutaneous syringe kit fludrocortisone 0.1 mg tablet 0.1 mg PO BID #60 tab 05/20/17 06/19/17 Rx hydrocodone 7.5 mg-acetaminophen 1 tab PO Q6H PRN #100 tab 05/20/17 06/19/17 Rx 325 mg tablet metoprolol tartrate 25 mg tablet 25 mg PO BID #60 tab 05/28/17 06/19/[address] - ER 3 mg 3 mg PO TID #90 each 06/13/17 06/19/17 Rx capsule,delayed,extended release fluoxetine 20 mg capsule 20 mg PO DAILY #30 cap 06/13/17 06/19/17 Rx mercaptopurine 50 mg tablet 50 mg PO QDAY #30 tab 06/13/17 06/19/17 Rx omeprazole 20 mg capsule,delayed 20 mg PO QDAY #30 cap 06/13/17 06/19/17 Rx release potassium chloride ER 20 mEq 30 meq PO QID #180 tab 06/14/17 06/19/17 Rx tablet,extended release warfarin 5 mg tablet 10 mg PO .COMPLEX #20 tab 06/18/17 06/19/17 Rx Allergies Allergy/AdvReac Type Severity Reaction Status Date / Time No Known Drug Allergies Allergy Verified 03/25/17 11:40 Medical - H&P: Exam - Constitutional Vitals: Temp Pulse Resp BP Pulse Ox 98.9 F 73 17 126/76 95 06/18/17 15:52 06/18/17 20:52 06/18/17 20:52 06/18/17 20:46 06/18/17 20:52 On exam, he is an elderly man, with numerous bruises and abrasions. His neck is in a cervical collar. He appears fairly comfortable when he is still. Head: Normocephalic, but his left face is quite swollen and bruised. There is a fair amount of bruising around the left eye as well. Ears: TMs and canals are clear. Eyes: Pupils are fairly small, but do react to light, EOMI, anicteric. Left conjunctivitis is a little bit injected. Pharynx: Is clear. Teeth are in fair condition. Neck: Is held in a cervical collar. Carotid arteries could not be assessed. There is no obvious thyromegaly. Cardiac exam: Shows regular rate and rhythm with normal S1 and S2, without murmurs rubs or gallops. Lungs are clear to auscultation, without rales, rhonchi, wheezes. Abdomen is soft and nontender with no obvious masses. Bowel sounds are active. Extremities: He has numerous bruises and ecchymoses and swelling noted of both hands and forearms, and left leg above and below the knee. Neurologic exam: Patient is fairly alert and oriented. He appears to answer questions appropriately. Cranial nerves are grossly intact. Motor exam is grossly intact, but he is somewhat limited by pain. Medical - H&P: Reslt - Labs CBC & Chem 7: 06/19/17 04:10 06/19/17 04:10 Labs: Short CBC 06/18/17 Range/Units 16:14 WBC 3.5 L (4.5-11.0) K/mcL Hgb 9.8 L (13.5-16.5) g/dL Hct 28.8 L (41.0-55.0) % Plt Count 201 (140-440) K/mcL BMP 06/18/17 16:14 Sodium 138 Potassium 3.7 Chloride 101 Carbon Dioxide 25 BUN 9 Creatinine 0.7 Glucose 91 Calcium 7.9 L Liver Function 06/18/17 Range/Units 16:14 Total Bilirubin 0.9 (0.0-1.0) mg/dL AST 26 (0-37) U/l ALT 19 (0-40) U/l Alkaline Phosphatase 99 (39-117) U/L Albumin 3.3 (3.2-5.2) gm/dL June 18: CBC differential: Shows MCV of 105, RDW 16.9, lymphocyte count low at 500. Next Pro time is 38, INR 3.8 Ethyl alcohol: Is less than 0.01 Cervical spine x-ray: Transverse type II nondisplaced fracture of the dens base , almost certainly chronic. No motion on flexion-extension to suggest instability. Recommend cervical MRI. June 17: [place] alcohol: 0.104 CT of the face: No facial fracture. Small hemorrhagic contusion with edema in the left-sided jina-zygomatic region. Nondisplaced transverse fracture through the dens base, likely chronic. Head CT: Mild atrophy and minimal chronic ischemic changes. No hemorrhage. Small hemorrhagic contusion in the subcu soft tissues overlying the left orbit wall. Medical - H&P: A/P (1) Fall Current visit: Yes Status: Acute (2) Abrasion, multiple sites Current visit: Yes Status: Acute (3) Multiple contusions Current visit: Yes Status: Acute (4) Nondisplaced type II dens fracture Current visit: Yes Status: Chronic (5) Supratherapeutic INR Current visit: Yes Status: Acute (6) Crohn's disease Current visit: No Status: Chronic - Narrative A/P Narrative: #1. Orthopedic. Patient presents with abnormal CAT scan and cervical x-ray after a fall. He appears to have either a chronic or an acute dens fracture. Radiology has suggested we keep him in the hospital overnight, and do a cervical MRI in the morning, to try to determine if this is chronic versus acute. The ER physician also feels that the patient needs closer observation that he would get if he went home alone. -For observation. -Q. shift neuro checks. -Cervical MRI in the morning. -Pain meds as needed. 2. Alcohol intoxication. Patient apparently fell while intoxicated. Monitor for signs and symptoms of alcohol withdrawal. 3. GI. History of Crohn's disease. Continue current medications. GERD. Continue PPI. 4. CODE STATUS: Full code. 5. DVT prophylaxis: Patient is supratherapeutic on Coumadin. 6. Hematologic. Chronic anemia, likely due to chronic disease. 7. Pulmonary. History of PE. Coumadin is supratherapeutic, likely due to alcohol. Continue to monitor. Approximately 60 minutes was spent this evening, reviewing his case with the ER MD, reviewing his test results and old records, interviewing and examining him, and writing orders.
[2017-06-18] MEDS ORDERED: POTASSIUM CHLORIDE 20 MEQ in DEXTROSE 5%-1/2NS 1,000 ML IV SCH (21:04)
[2017-06-18] MEDS ORDERED: NALOXONE HCL 0.4 MG/ML VIAL IV PRN (21:04)
[2017-06-18] MEDS ORDERED: ALBUTEROL SULFATE 2.5 MG/3 ML NEBULIZER NEB PRN (21:04)
[2017-06-18] MEDS ORDERED: ACETAMINOPHEN 325 MG TABLET PO PRN (21:04)
[2017-06-18] MEDS ORDERED: MAGNESIUM HYDROXIDE 30 ML ORAL.SUSP PO PRN (21:04)
[2017-06-18] MEDS ORDERED: ONDANSETRON 4 MG/2 ML VIAL IV PRN (21:04)
[2017-06-18] MEDS: DEXTROSE 5%-1/2NS W/20MEQ KCL 1,000 ML IV SCH (22:04)
[2017-06-18] MEDS: 0.9 % SODIUM CHLORIDE 10 ML SYRINGE IV SCH (22:05)
[2017-06-18] MEDS: IPRATROPIUM/ALBUTEROL 3 ML AMPUL.NEB NEB SCH ×2 (22:12→23:41)
[2017-06-18] MEDS: BUDESONIDE 0.5 MG/2 ML AMPUL.NEB NEB SCH (22:13)
[2017-06-19] MEDS: LORazepam 2 MG/ML VIAL IV PRN ×5 (00:52→14:57)
[2017-06-19] MEDS: FAMOTIDINE/PF 20 MG/2 ML VIAL IV SCH ×3 (00:52→21:14)
[2017-06-19] MEDS: 0.9 % SODIUM CHLORIDE 10 ML SYRINGE IV SCH ×7 (00:53→20:22)
[2017-06-19 06:28] LABS: Basophils # (Auto) 0 K/mcL (0.0-0.3); Eosinophils # (Auto) 0 K/mcL (0.0-0.7); Eosinophils % (Auto) 1.3 % (0.0-7.0); Granulocytes % (Auto) 61.1 % (38.0-78.0); Lymphocytes # (Auto) 0.7 K/mcL (1.5-4.8); Lymphocytes % (Auto) 22.7 % (15.5-49.0); Mean Corpuscular HGB Conc 34.4 g/dL (31.0-36.0); Mean Corpuscular Hemoglobin 36.5 pg (26.0-34.0); Monocytes # (Auto) 0.4 K/mcL (0.1-0.9); Monocytes % (Auto) 13.9 % (1.0-12.0); Platelet Count 164 K/mcL (140-440); RBC 2.47 M/mcL (4.50-5.90); Red Cell Distribution Width 16.7 % (11.5-14.5)
[2017-06-19 06:53] LABS: ALT/SGPT 17 U/l (0-40); Albumin 2.8 gm/dL (3.2-5.2); Albumin/Globulin Ratio 1.3 (1.0-2.3); Alkaline Phosphatase 86 U/L (39-117); Bilirubin,Direct < 0.2 mg/dL (0.0-0.3); Blood Urea Nitrogen 7 mg/dl (8-23); Gamma Glutamyl Transpeptidase 21 U/L (8-61); Magnesium 1.9 mg/dL (1.6-2.5); Uric Acid 5.2 mg/dL (2.5-8.0)
[2017-06-19] MEDS: IPRATROPIUM/ALBUTEROL 3 ML AMPUL.NEB NEB SCH ×3 (07:05→18:53)
[2017-06-19] MEDS: BUDESONIDE 0.5 MG/2 ML AMPUL.NEB NEB SCH ×2 (07:05→19:04)
[2017-06-19] MEDS ORDERED: OMEPRAZOLE 20 MG CAPSULE PO SCH (07:30)
[2017-06-19] MEDS ORDERED: HYDROCODONE/APAP 7.5/325MG TABLET PO PRN (07:53)
[2017-06-19] MEDS ORDERED: NITROGLYCERIN 0.4 MG TAB.SUBL SL PRN ×2 (07:53→17:37)
[2017-06-19] MEDS ORDERED: FOLIC ACID 1 MG TABLET PO SCH (09:00)
[2017-06-19] MEDS ORDERED: FLUDROCORTISONE 0.1 MG TABLET PO SCH (09:00)
[2017-06-19] MEDS ORDERED: MULTIVIT,THER IRON,CA,FA & MIN 1 TABLET PO SCH (09:00)
[2017-06-19] MEDS ORDERED: ADALIMUMAB 40 MG SUB-Q SCH (09:00)
[2017-06-19] MEDS ORDERED: FERROUS GLUCONATE 324 MG TABLET PO SCH (09:00)
[2017-06-19] MEDS ORDERED: METOPROLOL TARTRATE 25 MG TABLET PO SCH (09:00)
[2017-06-19] MEDS ORDERED: FLUoxetine HCL 20 MG CAPSULE PO SCH (09:00)
[2017-06-19] MEDS ORDERED: MERCAPTOPURINE 50 MG TABLET PO SCH (09:00)
[2017-06-19] MEDS ORDERED: MAGNESIUM OXIDE 400 MG TABLET PO SCH (09:00)
[2017-06-19] MEDS ORDERED: THIAMINE 100 MG TABLET PO SCH (09:00)
[2017-06-19] MEDS ORDERED: BALSALAZIDE DISODIUM 750 MG PO SCH (09:00)
[2017-06-19] MEDS: POTASSIUM CHLORIDE 10 MEQ TABLET PO SCH ×4 (09:17→20:19)
[2017-06-19] MEDS: VITAMIN D3 1,000 UNIT TABLET PO SCH ×4 (09:19→20:22)
[2017-06-19] MEDS: DEXTROSE 5%-1/2NS W/20MEQ KCL 1,000 ML IV SCH ×2 (09:19→21:21)
[2017-06-19] MEDS: BUDESONIDE 3 MG CAP.XL.24H PO SCH ×3 (09:32→20:19)
--- NOTE | 2017-06-19 11:02 | Internal Med Progress Note ---
Medical - PN: Subj Patient information: Note initiated : 06/19/17 at 11:02 am Patient: Christian Andrews 71 y/o M admitted on 06/18/17 for neck pain, full body pain. Interval history: June 18, 2017: History of present illness: Mr. Andrews is a 71 year old these, chronic AC therapy, and probable chronic alcohol abuse. He apparently took a bad fall day before yesterday, and presented to the emergency room for evaluation. His current review of his x- rays showed possible dens fracture, so he was brought back today for more x- rays. CT scan confirms a dens fracture, but could not say for sure if it was chronic. Radiologist recommended that the patient be watched overnight, and undergo MRI in the morning, to decide acuity. The patient admits he had had about 6 drinks the evening of the fall. It was a ground-level fall onto concrete. He is not entirely sure if he hit his head, but it would appear that he did. He has had significant pain since then, including pain in his head and face, neck, bilateral hands, left leg. Prior to his fall, he said he was feeling fine. He had not been having fever chills, headaches or dizziness, new eye or ear symptoms, sore throat or cough, chest pain or palpitations, shortness of breath, abdominal pain, nausea or vomiting, diarrhea or constipation or dysuria. Now he says his vision may be a little blurry. His main complaint is just of generalized pain. He lives alone. He says he has a niece and an uncle here in town. He says they do know that he had a bad fall. June 19: Overnight the patient became more confused. Because of his known alcohol abuse , he was monitored with the [facility] protocol. He did appear to have fairly acute alcohol withdrawal symptoms overnight, with hallucinations, etc. This morning he was to agitated and confused to cooperate with much of anything, and the MRI techs were unable to get him to be still enough to do an MRI. He remains in a cervical collar. This morning, he will open his eyes briefly and try to answer questions, and follow very simple commands, but otherwise speech is not making a lot of sense he was moved to a watch room, due to his high risk for climbing out of bed and pulling lines. As it became more obvious that he was likely in full-blown alcohol withdrawal, he was transferred to telemetry for closer monitoring. He is still not calm enough to do anymore neck or brain scanning. He may require follow-up head CT at some point, to rule out bleeding, although his admission head CT looks fine. Does not report any neck pain today, but his history is unreliable. - Constitutional Vitals: Vital Signs Temp Pulse Resp BP Pulse Ox 97.9 F 87 16 173/96 97 06/19/17 06:40 06/19/17 07:36 06/19/17 07:36 06/19/17 06:40 06/19/17 07:37 Period Temp Pulse Resp BP Sys/Phillips Pulse Ox Last 24 Hr 97.4 F-98.9 F 71-87 15-22 126-180/76-96 84-99 Intake and Output 06/18/17 06/19/17 06/19/17 21:59 05:59 13:59 Intake Total 821 / 821 50 / 50 945 / 945 Output Total 301 / 301 Balance 821 / 821 -251 / -251 944 / 944 Weight 216 lb Intake & Output: Intake & Output 06/18/17 06/19/17 06/19/17 21:59 05:59 13:59 Intake Total 821 / 821 50 / 50 945 / 945 Output Total 301 / 301 Balance 821 / 821 -251 / -251 944 / 944 Weight 216 lb Intake: IV 821 / 821 945 / 945 Dextrose 5%-1/2Ns W/20Meq KCl 1 945 / 945 ,000 ml @ 84 mls/hr IV .[id number] [facility] Rx#:[id number] Potassium Chloride 20 Meq 821 / 821 Magnesium Sulfate 16.24 Meq Infuvite Adult 10 ml Vitamin B1 100 mg In Sodium Chloride 0.9% 1,000 ml @ As Directed IV .Q0M [facility] Rx#:[id number] Oral 50 / 50 Output: Void Amount 300 / 300 # of times incontinent of urine Temperature 98.4. Heart rate 96. Respiratory rate 16-26. Blood pressure 180/ 85. O2 saturation 92% on a 2 L mask. Patient is quite confused with garbled speech. Neck is in a cervical collar. Cardiac exam shows regular rate and rhythm. Lungs are fairly clear to auscultation. Abdomen appears soft and nontender. Extremities: Both hands and arms are bruised and swollen. Left lower leg knee area is bandaged due to skin tear and bruising. Feet continue to be quite swollen. He has numerous ecchymoses. Neurologic: The patient is moving arms and legs equally. He is confused at times, and other times can follow simple commands. It has not been safe to get him out of bed at this point. He has been incontinent of urine. Medical - PN: Obj Da - Labs CBC & Chem 7: 06/19/17 04:10 06/19/17 04:10 Labs: Abnormal Lab Results 06/19/17 06/19/17 06/19/17 07:45 04:10 04:10 WBC 3.2 L RBC 2.47 L Hgb 9.0 L Hct 26.2 L MCV 106.0 H MCH 36.5 H RDW 16.7 H MPV 7.2 L Lymph % (Auto) [facility] % (Auto) 13.9 H Lymph # (Auto) 0.7 L PT 24.2 H INR 2.1 H BUN 7 L Creatinine 0.5 L Calcium 7.6 L Lactate Dehydrogenase 287 H Total Protein 4.9 L Albumin 2.8 L Globulin 2.1 L 06/18/17 06/18/17 06/18/17 16:14 16:14 16:14 WBC 3.5 L RBC 2.74 L Hgb 9.8 L Hct 28.8 L MCV 105.1 H MCH 35.7 H RDW 16.9 H MPV 7.0 L Lymph % (Auto) 13.[address] [facility] % (Auto) 13.3 H Lymph # (Auto) 0.5 L PT 38.6 H INR 3.8 H BUN Creatinine Calcium 7.9 L Lactate Dehydrogenase Total Protein 5.5 L Albumin Globulin June 18: CBC shows white blood cell count of 3500, hemoglobin 9.8, hematocrit 28, MCV 105 ,differential: Shows MCV of 105, RDW 16.9, lymphocyte count low at 500. Pro time is 38, INR 3.8 Ethyl alcohol: Is less than 0.01 Cervical spine x-ray: Transverse type II nondisplaced fracture of the dens base , almost certainly chronic. No motion on flexion-extension to suggest instability. Recommend cervical MRI. June 17: [place] alcohol: 0.104 CT of the face: No facial fracture. Small hemorrhagic contusion with edema in the left-sided jina-zygomatic region. Nondisplaced transverse fracture through the dens base, likely chronic. Head CT: Mild atrophy and minimal chronic ischemic changes. No hemorrhage. Small hemorrhagic contusion in the subcu soft tissues overlying the left orbit wall. Meds: Medications Acetaminophen (Tylenol) 650 mg PO Q6HP PRN PRN Reason: PAIN/FEVER > 101 Hydrocodone Bitart/Acetaminophen ([place] 7.5/325mg) 1 tab PO Q6H PRN PRN Reason: pain Albuterol Sulfate (Ventolin) 2.5 mg NEB Q2HP PRN PRN Reason: Shortness Of Breath Albuterol/Ipratropium (Duoneb) 3 ml NEB Q6HRT [facility] Last Admin: 06/19/17 07:05 Dose: 3 ml Atorvastatin Calcium (Lipitor) 20 mg PO HS [facility] Budesonide (Pulmicort) 0.5 mg NEB Q12 [facility] Last Admin: 06/19/17 07:05 Dose: 0.5 mg Budesonide (Entecort) 3 mg PO TID [facility] Last Admin: 06/19/17 09:32 Dose: Not Given Famotidine (Pepcid) 20 mg IV Q12 [facility] Last Admin: 06/19/17 09:18 Dose: 20 mg Ferrous Gluconate (Fergon) 324 mg PO DAILY [facility] Fludrocortisone Acetate (Florinef) 0.1 mg PO BID [facility] Last Admin: 06/19/17 09:27 Dose: 0.1 mg Fluoxetine HCl (Prozac) 20 mg PO DAILY [facility] Last Admin: 06/19/17 09:18 Dose: 20 mg Folic Acid (Folic Acid) 1 mg PO DAILY [facility] Last Admin: 06/19/17 09:20 Dose: 1 mg Potassium Chloride/Dextrose/Sod Cl (Dextrose 5%-1/2ns W/20meq Kcl) 1,000 mls @ 84 mls/hr IV .[id number] [facility] Last Admin: 06/19/17 09:19 Dose: 84 mls/hr Iron Carb/Multivit/Lometa/Folic Acid (Multivitamin W/Minerals) 1 tab PO DAILY [facility] Last Admin: 06/19/17 09:19 Dose: 1 tab Lorazepam (Ativan) 0 mg IV Q4HP PRN; Protocol PRN Reason: Alcohol Withdrawal Last Admin: 06/19/17 09:18 Dose: 2 mg Magnesium Hydroxide (Milk Of Magnesia) 30 ml PO DAILYP PRN PRN Reason: Constipation Magnesium Oxide (Magnesium Oxide) 400 mg PO BID [facility] Last Admin: 06/19/17 09:20 Dose: 400 mg Mercaptopurine (Mercaptopurine) 50 mg PO QDAY [facility] Last Admin: 06/19/17 09:33 Dose: Not Given Metoprolol Tartrate (Lopressor) 25 mg PO BID [facility] Last Admin: 06/19/17 09:17 Dose: 25 mg Naloxone HCl (Narcan) 0.1 mg IV Q2MIN PRN PRN Reason: Opiate Reversal Nitroglycerin (Nitrostat) 0.4 mg SL Q5M PRN PRN Reason: Chest Pain Omeprazole (Prilosec) 20 mg PO QAMAC [facility] Last Admin: 06/19/17 09:18 Dose: 20 mg Ondansetron HCl (Zofran) 4 mg IV Q6HP PRN PRN Reason: Nausea And Vomiting Adalimumab [Humira] (40 Mg Injection) 1 dose SUB-Q QWEEK [facility] Last Admin: 06/19/17 09:33 Dose: Not Given Balsalazide Disodium [Colazal] 750 Mg Cap 1 dose PO DAILY [facility] Last Admin: 06/19/17 09:33 Dose: Not Given Travoprost ( Benzalkonium) 0.004% Eye Drops 1 dose OU HS [facility] Potassium Chloride (Kdur) 30 meq PO CCHS [facility] Last Admin: 06/19/17 09:17 Dose: 30 meq Sodium Chloride (Saline Flush) 10 ml IV Q8 [facility] Last Admin: 06/19/17 04:54 Dose: Not Given Sodium Chloride (Saline Flush) 10 ml IV Q8 [facility] Last Admin: 06/19/17 04:54 Dose: Not Given Thiamine HCl (Vitamin B1) 100 mg PO QDAY [facility] Last Admin: 06/19/17 09:19 Dose: 100 mg Vitamin D (Vitamin D3) 2,000 unit PO QID [facility] Last Admin: 06/19/17 09:19 Dose: 2,000 unit Warfarin Sodium (Coumadin Per Pharmacy) 1 order PO UD [facility] Warfarin Sodium (Coumadin) 5 mg PO ONCE@1400 ONE Stop: 06/19/17 14:01 Medical - PN: A/P - Time Spent With Patient Total time spent is greater than 50% in coordination of care (as documented) at patient's floor/unit and/or counseling patient: 25 - 35 minutes (1) Fall Status: Acute Current Visit: Yes (2) Abrasion, multiple sites Status: Acute Current Visit: Yes (3) Multiple contusions Status: Acute Current Visit: Yes (4) Nondisplaced type II dens fracture Status: Chronic Current Visit: Yes (5) Supratherapeutic INR Status: Acute Current Visit: Yes (6) Crohn's disease Status: Chronic Current Visit: No - Narrative A/P Narrative: #1. Orthopedic. Patient presents with abnormal CAT scan and cervical x-ray after a fall. He appears to have either a chronic or an acute dens fracture. Radiology has suggested we keep him in the hospital overnight, and do a cervical MRI in the morning, to try to determine if this is chronic versus acute. The ER physician also feels that the patient needs closer observation that he would get if he went home alone. -Patient is still in a cervical collar. He is too confused to undergo an MRI at this point. So the collar will remain on. He is too unstable to return home, so was made an inpatient and transferred to telemetry for closer monitoring, regarding alcohol withdrawal. -Cervical MRI in the morning. -Pain meds as needed. 2. Alcohol intoxication. Patient apparently fell while intoxicated. -He appears to be in acute alcohol withdrawal. Continue to call withdrawal protocol. Monitor on telemetry. He is also still at risk for bleeding into the brain. If he is not more arousable tomorrow we may try to get a dry head CT. 3. GI. History of Crohn's disease. Continue current medications. GERD. Continue PPI. 4. CODE STATUS: Full code. 5. DVT prophylaxis: Patient is supratherapeutic on Coumadin. 6. Hematologic. Chronic anemia, likely due to chronic disease. 7. Pulmonary. History of PE. -INR is back to therapeutic range today. This is being monitored by pharmacy. Coumadin is supratherapeutic, likely due to alcohol. Continue to monitor.
[2017-06-19] MEDS ORDERED: WARFARIN 5 MG TABLET PO ONE ×2 (14:00→17:37)
[2017-06-19] MEDS ORDERED: NALOXONE HCL 0.4 MG/ML VIAL IV PRN (17:37)
[2017-06-19] MEDS ORDERED: ONDANSETRON 4 MG/2 ML VIAL IV PRN (17:37)
[2017-06-19] MEDS ORDERED: MAGNESIUM HYDROXIDE 30 ML ORAL.SUSP PO PRN (17:37)
[2017-06-19 18:31] LABS: Amphetamine Screen,Urine NONE DETECTED (NONDETECTED); Benzodiazepines Screen,Urine NONE DETECTED (NONDETECTED); Cocaine Screen,Urine NONE DETECTED (NONDETECTED); Opiate Screen,Urine SUSPECT POSITIVE (NONDETECTED); Oxycodone, Urine Screen NONE DETECTED (NONDETECTED)
[2017-06-19] MEDS: FLUDROCORTISONE 0.1 MG TABLET PO SCH (20:19)
[2017-06-19] MEDS: ATORVASTATIN 20 MG TABLET PO SCH (20:20)
[2017-06-19] MEDS: METOPROLOL TARTRATE 25 MG TABLET PO SCH (20:20)
[2017-06-19] MEDS: EYE OU SCH (20:21)
[2017-06-19] MEDS: TRAVOPROST 0.004% OU SCH (20:21)
[2017-06-19] MEDS: MAGNESIUM OXIDE 400 MG TABLET PO SCH (20:21)
[2017-06-19] MEDS ORDERED: EYE OU SCH (21:00)
[2017-06-19] MEDS ORDERED: ATORVASTATIN 20 MG TABLET PO SCH (21:00)
[2017-06-19] MEDS ORDERED: TRAVOPROST 0.004% OU SCH (21:00)
[2017-06-20] MEDS: IPRATROPIUM/ALBUTEROL 3 ML AMPUL.NEB NEB SCH ×4 (01:20→19:24)
[2017-06-20] MEDS: 0.9 % SODIUM CHLORIDE 10 ML SYRINGE IV SCH ×6 (05:23→21:25)
[2017-06-20] MEDS: BUDESONIDE 0.5 MG/2 ML AMPUL.NEB NEB SCH ×2 (07:05→19:24)
[2017-06-20 07:30] LABS: Basophils # (Auto) 0 K/mcL (0.0-0.3); Basophils % (Auto) 0.6 % (0.0-2.0); Eosinophils # (Auto) 0 K/mcL (0.0-0.7); Eosinophils % (Auto) 0.5 % (0.0-7.0); Granulocytes % (Auto) 71.1 % (38.0-78.0); Lymphocytes # (Auto) 0.6 K/mcL (1.5-4.8); Lymphocytes % (Auto) 14.3 % (15.5-49.0); Monocytes # (Auto) 0.5 K/mcL (0.1-0.9); Monocytes % (Auto) 13.5 % (1.0-12.0); Platelet Count 157 K/mcL (140-440); RBC 2.44 M/mcL (4.50-5.90); Red Cell Distribution Width 15.9 % (11.5-14.5)
[2017-06-20 08:02] LABS: ALT/SGPT 19 U/l (0-40); Albumin 2.8 gm/dL (3.2-5.2); Albumin/Globulin Ratio 1.1 (1.0-2.3); Alkaline Phosphatase 84 U/L (39-117); Bilirubin,Direct 0.2 mg/dL (0.0-0.3); Blood Urea Nitrogen 5 mg/dl (8-23); Gamma Glutamyl Transpeptidase 19 U/L (8-61); Magnesium 1.7 mg/dL (1.6-2.5); Uric Acid 4.6 mg/dL (2.5-8.0)
--- NOTE | 2017-06-20 09:51 | XRay Report ---
CLINICAL INFORMATION: Shortness of breath COMPARISON: 09/27/2016 FINDINGS: Film taken with a poor inspiratory result and portable technique shows borderline cardiomegaly. Mediastinum and pulmonary vessels are normal for technique and semierect, positioning. Lungs are clear. No effusions. IMPRESSION: Suboptimal inspiratory result. Negative. Suggest next chest x-ray two view upright film in our department Interpreted and Authenticated by: Hira Hanks 06/20/17
[2017-06-20] MEDS: DEXTROSE 5%-1/2NS W/20MEQ KCL 1,000 ML IV SCH ×3 (10:01→19:15)
[2017-06-20] MEDS: POTASSIUM CHLORIDE 10 MEQ TABLET PO SCH ×4 (10:08→20:30)
[2017-06-20] MEDS: OMEPRAZOLE 20 MG CAPSULE PO SCH (10:08)
[2017-06-20] MEDS: FLUDROCORTISONE 0.1 MG TABLET PO SCH ×2 (10:08→20:30)
[2017-06-20] MEDS: BUDESONIDE 3 MG CAP.XL.24H PO SCH ×3 (10:08→20:30)
[2017-06-20] MEDS: FERROUS GLUCONATE 324 MG TABLET PO SCH (10:08)
[2017-06-20] MEDS: MAGNESIUM OXIDE 400 MG TABLET PO SCH ×2 (10:09→21:23)
[2017-06-20] MEDS: METOPROLOL TARTRATE 25 MG TABLET PO SCH ×2 (10:09→21:10)
[2017-06-20] MEDS: BALSALAZIDE DISODIUM 750 MG PO SCH (10:09)
[2017-06-20] MEDS: MULTIVIT,THER IRON,CA,FA & MIN 1 TABLET PO SCH (10:09)
[2017-06-20] MEDS: FOLIC ACID 1 MG TABLET PO SCH (10:09)
[2017-06-20] MEDS: MERCAPTOPURINE 50 MG TABLET PO SCH (10:09)
[2017-06-20] MEDS: THIAMINE 100 MG TABLET PO SCH (10:11)
[2017-06-20] MEDS: FLUoxetine HCL 20 MG CAPSULE PO SCH (10:11)
[2017-06-20] MEDS: VITAMIN D3 1,000 UNIT TABLET PO SCH ×4 (10:11→21:23)
[2017-06-20] MEDS: FAMOTIDINE/PF 20 MG/2 ML VIAL IV SCH ×2 (10:17→21:23)
--- NOTE | 2017-06-20 10:22 | Internal Med Progress Note ---
Medical - PN: Subj Patient information: Note initiated : 06/20/17 at 10:22 am Patient: Christian Andrews 71 y/o M admitted on 06/19/17 for Neck Pain, Full Body Pain/Nondisplaced II Dens Fx. Interval history: June 18, 2017: History of present illness: Mr. Andrews is a 71 year old these, chronic AC therapy, and probable chronic alcohol abuse. He apparently took a bad fall day before yesterday, and presented to the emergency room for evaluation. His current review of his x- rays showed possible dens fracture, so he was brought back today for more x- rays. CT scan confirms a dens fracture, but could not say for sure if it was chronic. Radiologist recommended that the patient be watched overnight, and undergo MRI in the morning, to decide acuity. The patient admits he had had about 6 drinks the evening of the fall. It was a ground-level fall onto concrete. He is not entirely sure if he hit his head, but it would appear that he did. He has had significant pain since then, including pain in his head and face, neck, bilateral hands, left leg. Prior to his fall, he said he was feeling fine. He had not been having fever chills, headaches or dizziness, new eye or ear symptoms, sore throat or cough, chest pain or palpitations, shortness of breath, abdominal pain, nausea or vomiting, diarrhea or constipation or dysuria. Now he says his vision may be a little blurry. His main complaint is just of generalized pain. He lives alone. He says he has a niece and an uncle here in town. He says they do know that he had a bad fall. June 19: Overnight the patient became more confused. Because of his known alcohol abuse , he was monitored with the [facility] protocol. He did appear to have fairly acute alcohol withdrawal symptoms overnight, with hallucinations, etc. This morning he was to agitated and confused to cooperate with much of anything, and the MRI techs were unable to get him to be still enough to do an MRI. He remains in a cervical collar. This morning, he will open his eyes briefly and try to answer questions, and follow very simple commands, but otherwise speech is not making a lot of sense he was moved to a watch room, due to his high risk for climbing out of bed and pulling lines. As it became more obvious that he was likely in full-blown alcohol withdrawal, he was transferred to telemetry for closer monitoring. He is still not calm enough to do anymore neck or brain scanning. He may require follow-up head CT at some point, to rule out bleeding, although his admission head CT looks fine. Does not report any neck pain today, but his history is unreliable. June 20: The patient remained calm, did not require any more Ativan overnight. He slept most of the night. He snores very loudly, and has a great deal of upper airway noise, but has maintained his O2 saturations fine. This morning when he awakens , he was complaining of a bit of discomfort, so was given some IV morphine. He still is quite confused, and speech is minimal. He is able to say "no" when asked about pain or shortness of breath. Physical therapy was able to get him to follow some commands and move all extremities. He is still not awake enough to give consent for an MRI. Because of his ongoing altered mental status, we did do a head CT today, which shows no signs of bleeding. Nurses are concerned because of his continued loud upper airway noise. They are concerned that his cervical collar might be causing some kind of problem. Unfortunately, the patient does not have contacts or a POA listed. He does have a niece who works here, but has not given permission for us to discuss his care with her. Afternoon, he is a bit tachycardic. The nurses were unable to give him his oral medications this morning, due to his somnolence. Blood pressures are running low, in the 90s. - Constitutional Vitals: Vital Signs Temp Pulse Resp BP Pulse Ox 97.8 F 94 H 26 H 104/85 92 06/20/17 04:05 06/20/17 07:22 06/20/17 07:22 06/20/17 04:05 06/20/17 07:22 Period Temp Pulse Resp BP Sys/Phillips Pulse Ox Last 24 Hr 97.5 F-98.6 F 83-96 16-43 104-180/81-91 92-99 Intake and Output 06/19/17 06/20/17 06/20/17 21:59 05:59 13:59 Intake Total 1000 / 1000 Output Total 741 / 741 750 / 750 Balance -741 / -741 -750 / -750 1000 / 1000 Weight 225 lb Intake & Output: Intake & Output 06/19/17 06/20/17 06/20/17 21:59 05:59 13:59 Intake Total 1000 / 1000 Output Total 741 / 741 750 / 750 Balance -741 / -741 -750 / -750 1000 / 1000 Weight 225 lb Intake: IV 1000 / 1000 Dextrose 5%-1/2Ns W/20Meq KCl 1 1000 / 1000 ,000 ml @ 84 mls/hr IV .[id number] [facility] Rx#:[id number] Output: Urine Catheter Amount 740 / 740 750 / 750 # of times incontinent of urine Patient is still quite somnolent. He will open his eyes briefly to loud verbal stimulation. He will only speak 1 or 2 words, then fall back asleep. T-max is 100.2 heart rate is ranging from 84 to about 120. Respiratory rate ranges from 24-43. Blood pressure is varying from 93-108/72-80. O2 saturation is 92-98% on a 1.5 L oxygen mask. He is still quite somnolent. He still has marked bruising of his left face, both arms and hands, both legs and feet. Neck is still in a cervical collar. He has a great deal of upper airway gurgling, but no definite stridor. Cardiac exam shows regular rate and rhythm. Lungs: Breath sounds are very coarse throughout with a lot of noise transmitted from the upper airways. Upper airway sounds are gurgling. RT has not been able to suction much out of the way of secretions. Abdomen: Is soft with normal bowel sounds. Abdomen appears nontender. Extremities: Continue to show 2-3+ pitting edema of the left lower extremity, below the knee, which is bandaged. Right lower extremity does not show much in the way of edema. Neurologic: Patient is somnolent. He is able to speak a few words when he wakes up. He appears to move all extremities equally. Medical - PN: Obj Da - Labs CBC & Chem 7: 06/20/17 04:05 06/20/17 04:05 Labs: Abnormal Lab Results 06/20/17 06/20/17 06/20/17 04:05 04:05 04:05 WBC 3.9 L RBC 2.44 L Hgb 8.8 L Hct 25.8 L MCV 106.0 H MCH 36.0 H RDW 15.9 H MPV Lymph % (Auto) 14.3 L [place] % (Auto) 13.5 H Lymph # (Auto) 0.6 L PT 19.0 H INR 1.5 H BUN 5 L Creatinine 0.6 L Calcium 8.2 L Lactate Dehydrogenase 322 H Total Protein 5.3 L Albumin 2.8 L Globulin Urine Opiates Screen 06/19/17 06/19/17 06/19/17 07:45 04:10 04:10 WBC 3.2 L RBC 2.47 L Hgb 9.0 L Hct 26.2 L MCV 106.0 H MCH 36.5 H RDW 16.7 H MPV 7.2 L Lymph % (Auto) [place] % (Auto) 13.9 H Lymph # (Auto) 0.7 L PT 24.2 H INR 2.1 H BUN 7 L Creatinine 0.5 L Calcium 7.6 L Lactate Dehydrogenase 287 H Total Protein 4.9 L Albumin 2.8 L Globulin 2.1 L Urine Opiates Screen 06/18/17 06/18/17 06/18/17 16:14 16:14 16:14 WBC 3.5 L RBC 2.74 L Hgb 9.8 L Hct 28.8 L MCV 105.1 H MCH 35.7 H RDW 16.9 H MPV 7.0 L Lymph % (Auto) 13.7 L [place] % (Auto) 13.3 H Lymph # (Auto) 0.5 L PT 38.6 H INR 3.8 H BUN Creatinine Calcium 7.9 L Lactate Dehydrogenase Total Protein 5.5 L Albumin Globulin Urine Opiates Screen 06/18/17 15:33 WBC RBC Hgb Hct MCV MCH RDW MPV Lymph % (Auto) [place] % (Auto) Lymph # (Auto) PT INR BUN Creatinine Calcium Lactate Dehydrogenase Total Protein Albumin Globulin Urine Opiates Screen Suspect positive A June 20: CT of the head: Mild atrophy and chronic ischemia. No acute bleed. Chest x-ray: Suboptimal inspiration. No obvious infiltrates. June 18: CBC shows white blood cell count of 3500, hemoglobin 9.8, hematocrit 28, MCV 105 ,differential: Shows MCV of 105, RDW 16.9, lymphocyte count low at 500. Pro time is 38, INR 3.8 Ethyl alcohol: Is less than 0.01 Cervical spine x-ray: Transverse type II nondisplaced fracture of the dens base , almost certainly chronic. No motion on flexion-extension to suggest instability. Recommend cervical MRI. June 17: CBC: White blood cell count 3.5, hemoglobin 9.8, hematocrit 28.8, platelets 201, 000 Roggen alcohol: 0.104 CT of the face: No facial fracture. Small hemorrhagic contusion with edema in the left-sided jina-zygomatic region. Nondisplaced transverse fracture through the dens base, likely chronic. Head CT: Mild atrophy and minimal chronic ischemic changes. No hemorrhage. Small hemorrhagic contusion in the subcu soft tissues overlying the left orbit wall. Meds: Medications Acetaminophen (Tylenol) 650 mg PO Q6HP PRN PRN Reason: PAIN/FEVER > 101 Hydrocodone Bitart/Acetaminophen ([place] 7.5/325mg) 1 tab PO Q6H PRN PRN Reason: pain Albuterol Sulfate (Ventolin) 2.5 mg NEB Q2HP PRN PRN Reason: Shortness Of Breath Albuterol/Ipratropium (Duoneb) 3 ml NEB Q6HRT [facility] Last Admin: 06/20/17 07:05 Dose: 3 ml Atorvastatin Calcium (Lipitor) 20 mg PO HS [facility] Last Admin: 06/19/17 20:20 Dose: Not Given Budesonide (Pulmicort) 0.5 mg NEB Q12 [facility] Last Admin: 06/20/17 07:05 Dose: 0.5 mg Budesonide (Entecort) 3 mg PO TID [facility] Last Admin: 06/20/17 10:08 Dose: Not Given Famotidine (Pepcid) 20 mg IV Q12 [facility] Last Admin: 06/20/17 10:17 Dose: 20 mg Ferrous Gluconate (Fergon) 324 mg PO DAILY [facility] Last Admin: 06/20/17 10:08 Dose: Not Given Fludrocortisone Acetate (Florinef) 0.1 mg PO BID [facility] Last Admin: 06/20/17 10:08 Dose: Not Given Fluoxetine HCl (Prozac) 20 mg PO DAILY [facility] Last Admin: 06/20/17 10:11 Dose: Not Given Folic Acid (Folic Acid) 1 mg PO DAILY [facility] Last Admin: 06/20/17 10:09 Dose: Not Given Potassium Chloride/Dextrose/Sod Cl (Dextrose 5%-1/2ns W/20meq Kcl) 1,000 mls @ 84 mls/hr IV .[id number] [facility] Last Admin: 06/20/17 10:01 Dose: 84 mls/hr Iron Carb/Multivit/Andrew/Folic Acid (Multivitamin W/Minerals) 1 tab PO DAILY [facility] Last Admin: 06/20/17 10:09 Dose: Not Given Lorazepam (Ativan) 0 mg IV Q4HP PRN; Protocol PRN Reason: Alcohol Withdrawal Magnesium Hydroxide (Milk Of Magnesia) 30 ml PO DAILYP PRN PRN Reason: Constipation Magnesium Oxide (Magnesium Oxide) 400 mg PO BID [facility] Last Admin: 06/20/17 10:09 Dose: Not Given Mercaptopurine (Mercaptopurine) 50 mg PO QDAY [facility] Last Admin: 06/20/17 10:09 Dose: Not Given Metoprolol Tartrate (Lopressor) 25 mg PO BID [facility] Last Admin: 06/20/17 10:09 Dose: Not Given Naloxone HCl (Narcan) 0.1 mg IV Q2MIN PRN PRN Reason: Opiate Reversal Nitroglycerin (Nitrostat) 0.4 mg SL Q5M PRN PRN Reason: Chest Pain Omeprazole (Prilosec) 20 mg PO QAMAC [facility] Last Admin: 06/20/17 10:08 Dose: Not Given Ondansetron HCl (Zofran) 4 mg IV Q6HP PRN PRN Reason: Nausea And Vomiting Adalimumab [Humira] (40 Mg Injection) 1 dose SUB-Q QWEEK [facility] Balsalazide Disodium [Colazal] 750 Mg Cap 1 dose PO DAILY [facility] Last Admin: 06/20/17 10:09 Dose: Not Given Travoprost ( Benzalkonium) 0.004% Eye Drops 1 dose OU HS [facility] Last Admin: 06/19/17 20:21 Dose: Not Given Potassium Chloride (Kdur) 30 meq PO CCHS [facility] Last Admin: 06/20/17 10:08 Dose: Not Given Sodium Chloride (Saline Flush) 10 ml IV Q8 [facility] Last Admin: 06/20/17 05:23 Dose: Not Given Sodium Chloride (Saline Flush) 10 ml IV Q8 [facility] Last Admin: 06/20/17 05:23 Dose: Not Given Thiamine HCl (Vitamin B1) 100 mg PO QDAY [facility] Last Admin: 06/20/17 10:11 Dose: Not Given Vitamin D (Vitamin D3) 2,000 unit PO QID [facility] Last Admin: 06/20/17 10:11 Dose: Not Given Warfarin Sodium (Coumadin Per Pharmacy) 1 order PO UD [facility] Warfarin Sodium (Coumadin) 7.5 mg PO ONCE@1400 ONE Stop: 06/20/17 14:01 Medical - PN: A/P - Time Spent With Patient Total time spent is greater than 50% in coordination of care (as documented) at patient's floor/unit and/or counseling patient: Greater than 35 minutes (1) Fall Status: Acute Current Visit: Yes (2) Abrasion, multiple sites Status: Acute Current Visit: Yes (3) Multiple contusions Status: Acute Current Visit: Yes (4) Nondisplaced type II dens fracture Status: Chronic Current Visit: Yes (5) Supratherapeutic INR Status: Acute Current Visit: Yes (6) Crohn's disease Status: Chronic Current Visit: No - Narrative A/P Narrative: #1. Orthopedic. Patient presents with abnormal CAT scan and cervical x-ray after a fall. He appears to have either a chronic or an acute dens fracture. Radiology has suggested we keep him in the hospital overnight, and do a cervical MRI in the morning, to try to determine if this is chronic versus acute. The ER physician also feels that the patient needs closer observation that he would get if he went home alone. -Patient is still in a cervical collar. He is too confused to undergo an MRI at this point. So the collar will remain on. He is too unstable to return home, so was transferred to telemetry for closer monitoring, regarding alcohol withdrawal. -Cervical MRI in the morning. -Pain meds as needed. 2. Neurologic/alcohol intoxication. Patient apparently fell while intoxicated. -He appears to be in acute alcohol withdrawal. Continue to call withdrawal protocol. Monitor on telemetry. He is difficult to arouse today, so underwent head CT, which does not show signs of bleeding. He is still not alert enough to answer questions and consented to MRI. Continue cervical collar. 3. GI. History of Crohn's disease. Patient is unable to take oral medications safely, but needs to get these. We will place an NG tube for that purpose. Continue current medications. GERD. Continue PPI. 4. CODE STATUS: Full code. 5. DVT prophylaxis: Coumadin is now subtherapeutic. We will try to resume via NG tube. 6. Hematologic. Chronic anemia, likely due to chronic disease. 7. Pulmonary. History of PE. Plan resume Coumadin. 8. Cardiovascular. Patient is tachycardic this afternoon, and blood pressures are running low. He has not had any oral intake. I will increase his IV fluid rate, to see if that settles things down. We will also try to get him back on his usual oral medications. 9. Infectious disease. Patient does have a low-grade fever. Urinalysis and chest x-ray have been negative. Continue to monitor.
[2017-06-20] MEDS: LORazepam 2 MG/ML VIAL IV PRN ×2 (11:17→12:24)
--- NOTE | 2017-06-20 13:07 | Cat Scan Report ---
CLINICAL INFORMATION: Increasing confusion. Status post fall in patient on Coumadin COMPARISON: 06/17/2017 TECHNIQUE: 2.5 mm helical slices were obtained in the skull base to vertex. Following reconstruction, axial reformatted images were reviewed at bone and parenchymal windows. FINDINGS: The ventricles, sulci, fissures, and cisterns are symmetrically enlarged compatible with mild age-related atrophy - no subdural hemorrhage or extra-axial fluid collection appreciated. Minimal chronic ischemic changes noted in the deep cerebral white matter. There is no intracerebral hemorrhage, mass effect, edema or other acute intracerebral abnormality. Bone windows show no fracture or other osseous abnormality IMPRESSION: Mild atrophy and chronic ischemic changes in the cerebral white matter - expected for age. There is no evidence of intracerebral hemorrhage or other acute posttraumatic change. Interpreted and Authenticated by: Hira Hanks 06/20/17
[2017-06-20] MEDS ORDERED: WARFARIN 7.5 MG TABLET PO ONE (14:00)
--- NOTE | 2017-06-20 17:28 | General Surgery Consult Note ---
History of Present Illness Patient information: Note initiated : 06/20/17 at 5:24 pm Service Date, if different from initiated Date: [] Patient: Christian Andrews 71 y/o M admitted on 06/19/17 for Neck Pain, Full Body Pain/Nondisplaced II Dens Fx. Chief Complaint: [] Consult date: 06/20/17 Requesting physician: Fanny Chen (Wound Care CONSULT) History of present illness: I SAW THE [facility] AND DISCUSSED THIS CASE WITH HOSPITALIST PHYSICIAN. This is a 71 yr old male in ICU with hard cervical collar following a ground level fall after drinking alcohol at home. He has fracture of C2 vertebra and multiple facial bruises and scattered skin tears over Face head and neck, torso and extremities. Patient has h/o IBD being treated with immunosuppressants and anticoagulants. On top of this he had alcohol consumption and inebriation with ground level fall . He sustained mainly abrasions of face and upper neck.He has thick bo. Other injuries re epidermal or dermal tears scattered over extremities. Medications and Allergies Home Medications Medication Instructions Recorded Confirmed Type Ascorbic Acid [Ascorbic Acid with 500 mg PO QDAY 04/15/15 06/19/17 History Rh] Aspirin [Ecotrin] 81 mg PO QDAY 04/15/15 06/19/17 History Cholecalciferol (Vitamin D3) 2,000 unit PO QIDP 04/15/15 06/19/17 History [Vitamin D3] Ipratropium/Albuterol Sulfate 2 puff INH QID PRN 04/15/15 06/19/17 History [Combivent] Nitroglycerin [Nitrostat] 0.4 mg SL Q5M PRN 04/15/15 06/19/17 History [place] 160 mg PO QDAY 04/15/15 06/19/17 History multivitamin with minerals capsule 1 tab-cap PO QDAY cap 11/14/15 06/19/17 History travoprost (benzalkonium) 0.004 % 1 drp OPHTHALMIC HS #5 ml 05/01/16 06/19/17 Rx eye drops ferrous gluconate 324 mg (38 mg 324 mg PO QDAY #100 tab 05/10/16 06/19/17 Rx iron) tablet guaifenesin 400 mg tablet 400 mg PO Q4H PRN #30 tab 09/20/16 06/19/17 Rx atorvastatin 40 mg tablet 20 mg PO QDAY #30 tab 09/26/16 06/19/17 Rx albuterol sulfate HFA 90 2 puff INHALATION Q4HP PRN #8.5 g 12/04/16 06/19/17 Rx mcg/actuation aerosol inhaler magnesium oxide 400 mg tablet 400 mg PO BID #60 tab 12/10/16 06/19/17 Rx budesonide-formoterol HFA 160 2 puff INHALATION BID #10.2 g 01/14/17 06/19/17 Rx mcg-4.5 mcg/actuation aerosol inhaler balsalazide 750 mg capsule 1 cap PO DAILY 30 Days 02/15/17 06/19/17 History docusate sodium 100 mg capsule 100 mg PO BID PRN 05/15/17 06/19/17 History adalimumab 40 mg/0.8 mL 40 mg SUB-Q QWEEK ml 05/20/17 06/19/17 History subcutaneous syringe kit fludrocortisone 0.1 mg tablet 0.1 mg PO BID #60 tab 05/20/17 06/19/17 Rx hydrocodone 7.5 mg-acetaminophen 1 tab PO Q6H PRN #100 tab 05/20/17 06/19/17 Rx 325 mg tablet metoprolol tartrate 25 mg tablet 25 mg PO BID #60 tab 05/28/17 06/19/[address] - ER 3 mg 3 mg PO TID #90 each 06/13/17 06/19/17 Rx capsule,delayed,extended release fluoxetine 20 mg capsule 20 mg PO DAILY #30 cap 06/13/17 06/19/17 Rx mercaptopurine 50 mg tablet 50 mg PO QDAY #30 tab 06/13/17 06/19/17 Rx omeprazole 20 mg capsule,delayed 20 mg PO QDAY #30 cap 06/13/17 06/19/17 Rx release potassium chloride ER 20 mEq 30 meq PO QID #180 tab 06/14/17 06/19/17 Rx tablet,extended release warfarin 5 mg tablet 10 mg PO .COMPLEX #20 tab 06/18/17 06/19/17 Rx Allergies Allergy/AdvReac Type Severity Reaction Status Date / Time No Known Drug Allergies Allergy Verified 03/25/17 11:40 Exam Temp Pulse Resp BP Pulse Ox 100.2 F H 96 H 28 H 93/76 98 06/20/17 12:33 06/20/17 13:17 06/20/17 13:17 06/20/17 12:33 06/20/17 12:33 - General physical appearance well developed, well nourished, no distress, no pain, other (in cervial collar. ) - Eyes PERRL, normal ocular movement - ENT normal pinna, normal nares, normal mucosa, no congestion - Head Head exam IM: Present: atraumatic, normal inspection - Neck no masses, no bruits, no venous distension - Cardiovascular Cardiovascular exam IM: Present: normal rate and rhythm - Respiratory normal expansion, normal respiratory effort, clear to auscultation - Abdomen Abdomen: Present: soft, non tender, bowel sounds - Genitourinary Present: normal penis with no external lesions, other (Clear urine in cateter bag. ) - Integumentary Present: other (Multiple abrasions of face and upper neck as shown in clinical photographs and skin tears, epidermal and dermal as shown / documented inclinical photographs. ) - Neurologic Present: other (Patient is medicated. Drowsy. Detailed exam NOT done. ) - Musculoskeletal Present: other (Lying in bed supine. NO obvious deformities or complex open skin lesions or wound noted, except THOSE documented in clinical photographs. ) Results - Labs 06/21/17 04:09 06/21/17 04:09 Abnormal lab results 06/18/17 06/20/17 06/20/17 Range/Units 15:33 04:05 04:05 WBC 3.9 L (4.5-11.0) K/mcL RBC 2.44 L (4.50-5.90) M/mcL Hgb 8.8 L (13.5-16.5) g/dL Hct 25.8 L (41.0-55.0) % MCV 106.0 H (80.0-100.0) fL MCH 36.0 H (26.0-34.0) pg RDW 15.9 H (11.5-14.5) % Lymph % (Auto) 14.3 L (15.5-49.0) % [place] % (Auto) 13.5 H (1.0-12.0) % Lymph # (Auto) 0.6 L (1.5-4.8) K/mcL PT (11.9-14.5) sec INR (0.9-1.1) BUN 5 L (8-23) mg/dl Creatinine 0.6 L (0.7-1.2) mg/dl Calcium 8.2 L (8.6-10.4) mg/dl Lactate Dehydrogenase 322 H (94-250) U/L Total Protein 5.3 L (5.9-8.4) gm/dL Albumin 2.8 L (3.2-5.2) gm/dL Urine Opiates Screen Suspect positive A (NONDETECTED) 06/20/17 Range/Units 04:05 WBC (4.5-11.0) K/mcL RBC (4.50-5.90) M/mcL Hgb (13.5-16.5) g/dL Hct (41.0-55.0) % MCV (80.0-100.0) fL MCH (26.0-34.0) pg RDW (11.5-14.5) % Lymph % (Auto) (15.5-49.0) % [place] % (Auto) (1.0-12.0) % Lymph # (Auto) (1.5-4.8) K/mcL PT 19.0 H (11.9-14.5) sec INR 1.5 H (0.9-1.1) BUN (8-23) mg/dl Creatinine (0.7-1.2) mg/dl Calcium (8.6-10.4) mg/dl Lactate Dehydrogenase (94-250) U/L Total Protein (5.9-8.4) gm/dL Albumin (3.2-5.2) gm/dL Urine Opiates Screen (NONDETECTED) Diabetes panel 06/20/17 Range/Units 04:05 Sodium 138 (133-145) mmol/L Potassium 4.1 (3.3-5.1) mmol/L Chloride 100 (96-108) mmol/L Carbon Dioxide 27 (22-30) mmol/L BUN 5 L (8-23) mg/dl Creatinine 0.6 L (0.7-1.2) mg/dl Glucose 99 (70-105) mg/dL Calcium 8.2 L (8.6-10.4) mg/dl AST 26 (0-37) U/l ALT 19 (0-40) U/l Alkaline Phosphatase 84 (39-117) U/L Total Protein 5.3 L (5.9-8.4) gm/dL Albumin 2.8 L (3.2-5.2) gm/dL Triglycerides 65 (<150) mg/dl Calcium panel 06/20/17 Range/Units 04:05 Calcium 8.2 L (8.6-10.4) mg/dl Phosphorus 2.7 (2.7-4.5) mg/dL Albumin 2.8 L (3.2-5.2) gm/dL Pituitary panel 06/20/17 Range/Units 04:05 Sodium 138 (133-145) mmol/L Potassium 4.1 (3.3-5.1) mmol/L Chloride 100 (96-108) mmol/L Carbon Dioxide 27 (22-30) mmol/L BUN 5 L (8-23) mg/dl Creatinine 0.6 L (0.7-1.2) mg/dl Glucose 99 (70-105) mg/dL Calcium 8.2 L (8.6-10.4) mg/dl Adrenal panel 06/20/17 Range/Units 04:05 Sodium 138 (133-145) mmol/L Potassium 4.1 (3.3-5.1) mmol/L Chloride 100 (96-108) mmol/L Carbon Dioxide 27 (22-30) mmol/L BUN 5 L (8-23) mg/dl Creatinine 0.6 L (0.7-1.2) mg/dl Glucose 99 (70-105) mg/dL Calcium 8.2 L (8.6-10.4) mg/dl Total Bilirubin 0.9 (0.0-1.0) mg/dL AST 26 (0-37) U/l ALT 19 (0-40) U/l Alkaline Phosphatase 84 (39-117) U/L Total Protein 5.3 L (5.9-8.4) gm/dL Albumin 2.8 L (3.2-5.2) gm/dL All other labs normal. Assessment and Plan (1) Abrasion, multiple sites Assessment: Admitted with multiple medical issues and managed appropriately in ICU Bed 120 / C. Superficial skin abrasions and epidermal / dermal open dry and clean wounds over torso and extremities as documented in photographs. Plan: Conservative management as outlined in wound care orders. Will follow patient , whilst hospitalized. Status: Acute Priority: Low
--- NOTE | 2017-06-20 17:40 | XRay Report ---
CLINICAL INFORMATION: NG tube placement COMPARISON: None. FINDINGS: NG tip overlies the proximal gastric body. Stool gas pattern is unremarkable. No free air or soft tissue mass. IMPRESSION: No acute disease. NG tube overlies the gastric body Interpreted and Authenticated by: Hira Hanks 06/20/17
[2017-06-20] MEDS: ATORVASTATIN 20 MG TABLET PO SCH (20:31)
[2017-06-20] MEDS: EYE OU SCH (20:31)
[2017-06-20] MEDS: TRAVOPROST 0.004% OU SCH (20:31)
[2017-06-21] MEDS: DEXTROSE 5%-1/2NS W/20MEQ KCL 1,000 ML IV SCH ×5 (01:39→23:30)
[2017-06-21] MEDS: IPRATROPIUM/ALBUTEROL 3 ML AMPUL.NEB NEB SCH ×4 (01:39→19:06)
[2017-06-21] MEDS: 0.9 % SODIUM CHLORIDE 10 ML SYRINGE IV SCH ×6 (05:48→21:58)
[2017-06-21 06:30] LABS: Basophils # (Auto) 0 K/mcL (0.0-0.3); Basophils % (Auto) 0.8 % (0.0-2.0); Eosinophils # (Auto) 0 K/mcL (0.0-0.7); Granulocytes % (Auto) 60.1 % (38.0-78.0); Lymphocytes # (Auto) 0.8 K/mcL (1.5-4.8); Lymphocytes % (Auto) 23.9 % (15.5-49.0); Monocytes # (Auto) 0.5 K/mcL (0.1-0.9); Monocytes % (Auto) 14.2 % (1.0-12.0); Platelet Count 161 K/mcL (140-440); RBC 2.35 M/mcL (4.50-5.90); Red Cell Distribution Width 15.9 % (11.5-14.5)
[2017-06-21 07:01] LABS: ALT/SGPT 17 U/l (0-40); Albumin 2.6 gm/dL (3.2-5.2); Alkaline Phosphatase 73 U/L (39-117); Bilirubin,Direct < 0.2 mg/dL (0.0-0.3); Blood Urea Nitrogen 5 mg/dl (8-23); Gamma Glutamyl Transpeptidase 17 U/L (8-61); Magnesium 1.7 mg/dL (1.6-2.5); Uric Acid 4.3 mg/dL (2.5-8.0)
[2017-06-21] MEDS: BUDESONIDE 0.5 MG/2 ML AMPUL.NEB NEB SCH ×2 (07:14→19:06)
[2017-06-21] MEDS: METOPROLOL TARTRATE 25 MG TABLET PO SCH ×3 (08:54→21:58)
[2017-06-21] MEDS: OMEPRAZOLE 20 MG CAPSULE PO SCH (09:07)
[2017-06-21] MEDS: BUDESONIDE 3 MG CAP.XL.24H PO SCH ×3 (09:12→21:22)
[2017-06-21] MEDS: BALSALAZIDE DISODIUM 750 MG PO SCH (09:27)
[2017-06-21] MEDS: MERCAPTOPURINE 50 MG TABLET PO SCH (09:27)
[2017-06-21] MEDS: FLUoxetine HCL 20 MG CAPSULE PO SCH ×2 (09:30→12:02)
[2017-06-21] MEDS: FERROUS GLUCONATE 324 MG TABLET PO SCH ×2 (09:39→12:42)
[2017-06-21] MEDS ORDERED: METOPROLOL TARTRATE 5 MG/5 ML VIAL IV PRN (09:51)
[2017-06-21] MEDS ORDERED: MAGNESIUM SULFATE 8.12 MEQ in DEXTROSE 5% IN WATER 50 ML IV ONE (09:58)
--- NOTE | 2017-06-21 11:23 | Internal Med Progress Note ---
Medical - PN: Subj Patient information: Note initiated : 06/21/17 at 11:22 am Service Date, if different from initiated Date: [] Patient: Christian Andrews 71 y/o M admitted on 06/19/17 for Neck Pain, Full Body Pain/Nondisplaced II Dens Fx. Chief Complaint: [] Interval history: June 18, 2017: History of present illness: Mr. Andrews is a 71 year old these, chronic AC therapy, and probable chronic alcohol abuse. He apparently took a bad fall day before yesterday, and presented to the emergency room for evaluation. His current review of his x- rays showed possible dens fracture, so he was brought back today for more x- rays. CT scan confirms a dens fracture, but could not say for sure if it was chronic. Radiologist recommended that the patient be watched overnight, and undergo MRI in the morning, to decide acuity. The patient admits he had had about 6 drinks the evening of the fall. It was a ground-level fall onto concrete. He is not entirely sure if he hit his head, but it would appear that he did. He has had significant pain since then, including pain in his head and face, neck, bilateral hands, left leg. Prior to his fall, he said he was feeling fine. He had not been having fever chills, headaches or dizziness, new eye or ear symptoms, sore throat or cough, chest pain or palpitations, shortness of breath, abdominal pain, nausea or vomiting, diarrhea or constipation or dysuria. Now he says his vision may be a little blurry. His main complaint is just of generalized pain. He lives alone. He says he has a niece and an uncle here in town. He says they do know that he had a bad fall. June 19: Overnight the patient became more confused. Because of his known alcohol abuse , he was monitored with the [facility] protocol. He did appear to have fairly acute alcohol withdrawal symptoms overnight, with hallucinations, etc. This morning he was to agitated and confused to cooperate with much of anything, and the MRI techs were unable to get him to be still enough to do an MRI. He remains in a cervical collar. This morning, he will open his eyes briefly and try to answer questions, and follow very simple commands, but otherwise speech is not making a lot of sense he was moved to a watch room, due to his high risk for climbing out of bed and pulling lines. As it became more obvious that he was likely in full-blown alcohol withdrawal, he was transferred to telemetry for closer monitoring. He is still not calm enough to do anymore neck or brain scanning. He may require follow-up head CT at some point, to rule out bleeding, although his admission head CT looks fine. Does not report any neck pain today, but his history is unreliable. June 20: The patient remained calm, did not require any more Ativan overnight. He slept most of the night. He snores very loudly, and has a great deal of upper airway noise, but has maintained his O2 saturations fine. This morning when he awakens , he was complaining of a bit of discomfort, so was given some IV morphine. He still is quite confused, and speech is minimal. He is able to say "no" when asked about pain or shortness of breath. Physical therapy was able to get him to follow some commands and move all extremities. He is still not awake enough to give consent for an MRI. Because of his ongoing altered mental status, we did do a head CT today, which shows no signs of bleeding. Nurses are concerned because of his continued loud upper airway noise. They are concerned that his cervical collar might be causing some kind of problem. Unfortunately, the patient does not have contacts or a POA listed. He does have a niece who works here, but has not given permission for us to discuss his care with her. Afternoon, he is a bit tachycardic. The nurses were unable to give him his oral medications this morning, due to his somnolence. Blood pressures are running low, in the 90s. June 21: This morning, the patient is a little more arousable. He still seems a bit groggy, but was more able to answer questions. He was also able to state that he wanted his POA to be his friend, Mayito Cailey. He tells us that he has one coronary stent, and bilateral hip prostheses. We have requested records of those, to see if these will prevent him from having his cervical MRI. He denies significant pain at this time. He denies chest pain or palpitations, shortness of breath, abdominal pain. He remains in a cervical collar. Today is the first day since the night of admission where he seems to be answering most questions appropriately. BiPAP was placed yesterday, and seemed to make his very loud upper airway noises resolved, and his tachypnea resolved. This morning we remove the BiPAP mask, and he was able to maintain his O2 saturations while talking with us, just with oxygen by nasal cannula. He has not been able to get oral meds up until now, due to his obtunded state. He does have an NG tube in place, and we were discussing with family which meds could go down the tube. Hopefully, he will be alert enough this afternoon that he can take things orally. Pro time was elevated on admission, so Coumadin was held. Now INR is low, so he is being bridged with Lovenox, until INR is greater than 2.0, regarding his PE. I do not have information however on when the PE was, and how long he was to stay on Coumadin. - Constitutional Vitals: Vital Signs Temp Pulse Resp BP Pulse Ox 97.5 F 77 19 106/81 97 06/21/17 04:00 06/21/17 07:15 06/21/17 07:15 06/21/17 04:00 06/21/17 07:15 Period Temp Pulse Resp BP Sys/Phillips Pulse Ox Last 24 Hr 97.5 F-100.2 F 76-96 13-38 92-139/69-91 93-98 Intake and Output 06/20/17 06/21/17 06/21/17 21:59 05:59 13:59 Intake Total 1999 / 1000 1000 / 1000 Output Total 850 / 850 1300 / 1300 Balance 1150 / 1150 -300 / -300 1000 / 1000 Weight 226 lb 3.2 oz Intake & Output: Intake & Output 06/20/17 06/21/17 06/21/17 21:59 05:59 13:59 Intake Total 1999 1000 / 1000 1000 / 1000 Output Total 850 / 850 1300 / 1300 Balance 1150 / 1150 -300 / -300 1000 / 1000 Weight 226 lb 3.2 oz Intake: IV 1999 / 1000 1000 / 1000 Dextrose 5%-1/2Ns W/20Meq KCl 1 999 / 999 1000 / 1000 1000 / 1000 ,000 ml @ 150 mls/hr IV .Q6H40M [facility] Rx#:[id number] Output: Urine Catheter Amount 850 / 850 1300 / 1300 On exam, he is awake, and a bit groggy, but able to answer most questions appropriately. Speech is quite soft. He is afebrile, heart rate 77, respiratory rate 19, O2 saturation was 97% with BiPAP, on room air Neck is still in a cervical collar. Upper airway gurgling has essentially resolved. Cardiac exam shows regular rate and rhythm. Lungs: Breath sounds are very coarse throughout, but much less per airway noise and yesterday. Abdomen: Is soft with normal bowel sounds. Abdomen appears nontender. Extremities: Left lower extremity seems to have much less edema than yesterday. The knee is still bandaged.. Right lower extremity does not show much in the way of edema. Neurologic: Patient is much more awake and alert today. He was able to tell us his doctor's names, and the name of his friend Mayito and how to locate his phone number. He is following most commands. Medical - PN: Obj Da - Labs CBC & Chem 7: 06/21/17 04:09 06/21/17 04:09 Labs: Abnormal Lab Results 06/21/17 06/21/17 06/21/17 04:09 04:09 04:09 WBC 3.2 L RBC 2.35 L Hgb 8.5 L Hct 25.0 L MCV 106.0 H MCH 36.0 H RDW 15.9 H MPV 7.3 L Lymph % (Auto) [place] % (Auto) 14.2 H Lymph # (Auto) 0.8 L PT 17.0 H INR 1.3 H BUN 5 L Creatinine 0.6 L Glucose 114 H Calcium 8.2 L Phosphorus 2.4 L Lactate Dehydrogenase 293 H Total Protein 5.1 L Albumin 2.6 L Globulin Urine Opiates Screen 06/20/17 06/20/17 06/20/17 04:05 04:05 04:05 WBC 3.9 L RBC 2.44 L Hgb 8.8 L Hct 25.8 L MCV 106.0 H MCH 36.0 H RDW 15.9 H MPV Lymph % (Auto) 14.3 L [place] % (Auto) 13.5 H Lymph # (Auto) 0.6 L PT 19.0 H INR 1.5 H BUN 5 L Creatinine 0.6 L Glucose Calcium 8.2 L Phosphorus Lactate Dehydrogenase 322 H Total Protein 5.3 L Albumin 2.8 L Globulin Urine Opiates Screen 06/19/17 06/19/17 06/19/17 07:45 04:10 04:10 WBC 3.2 L RBC 2.47 L Hgb 9.0 L Hct 26.2 L MCV 106.0 H MCH 36.5 H RDW 16.7 H MPV 7.2 L Lymph % (Auto) [place] % (Auto) 13.9 H Lymph # (Auto) 0.7 L PT 24.2 H INR 2.1 H BUN 7 L Creatinine 0.5 L Glucose Calcium 7.6 L Phosphorus Lactate Dehydrogenase 287 H Total Protein 4.9 L Albumin 2.8 L Globulin 2.1 L Urine Opiates Screen 06/18/17 06/18/17 06/18/17 16:14 16:14 16:14 WBC 3.5 L RBC 2.74 L Hgb 9.8 L Hct 28.8 L MCV 105.1 H MCH 35.7 H RDW 16.9 H MPV 7.0 L Lymph % (Auto) 13.7 L [place] % (Auto) 13.3 H Lymph # (Auto) 0.5 L PT 38.6 H INR 3.8 H BUN Creatinine Glucose Calcium 7.9 L Phosphorus Lactate Dehydrogenase Total Protein 5.5 L Albumin Globulin Urine Opiates Screen 06/18/17 15:33 WBC RBC Hgb Hct MCV MCH RDW MPV Lymph % (Auto) [place] % (Auto) Lymph # (Auto) PT INR BUN Creatinine Glucose Calcium Phosphorus Lactate Dehydrogenase Total Protein Albumin Globulin Urine Opiates Screen Suspect positive A June 20: ABG: On 3 L nasal cannula: PH 7.48, PCO2 40, PO2 62, bicarb 29, O2 saturation 93 %. I believe his respiratory rate was around [address] of the head: Mild atrophy and chronic ischemia. No acute bleed. Chest x-ray: Suboptimal inspiration. No obvious infiltrates. June 18: CBC shows white blood cell count of 3500, hemoglobin 9.8, hematocrit 28, MCV 105 ,differential: Shows MCV of 105, RDW 16.9, lymphocyte count low at 500. Pro time is 38, INR 3.8 Ethyl alcohol: Is less than 0.01 Cervical spine x-ray: Transverse type II nondisplaced fracture of the dens base , almost certainly chronic. No motion on flexion-extension to suggest instability. Recommend cervical MRI. June 17: CBC: White blood cell count 3.5, hemoglobin 9.8, hematocrit 28.8, platelets 201, 000 Elaine alcohol: 0.104 CT of the face: No facial fracture. Small hemorrhagic contusion with edema in the left-sided jina-zygomatic region. Nondisplaced transverse fracture through the dens base, likely chronic. Head CT: Mild atrophy and minimal chronic ischemic changes. No hemorrhage. Small hemorrhagic contusion in the subcu soft tissues overlying the left orbit wall. Meds: Medications Acetaminophen (Tylenol) 650 mg PO Q6HP PRN PRN Reason: PAIN/FEVER > 101 Hydrocodone Bitart/Acetaminophen ([place] 7.5/325mg) 1 tab PO Q6H PRN PRN Reason: pain Albuterol Sulfate (Ventolin) 2.5 mg NEB Q2HP PRN PRN Reason: Shortness Of Breath Albuterol/Ipratropium (Duoneb) 3 ml NEB Q6HRT [facility] Last Admin: 06/21/17 07:14 Dose: 3 ml Atorvastatin Calcium (Lipitor) 20 mg PO HS [facility] Last Admin: 06/20/17 20:31 Dose: Not Given Budesonide (Pulmicort) 0.5 mg NEB Q12 [facility] Last Admin: 06/21/17 07:14 Dose: 0.5 mg Budesonide (Entecort) 3 mg PO TID [facility] Last Admin: 06/21/17 09:12 Dose: Not Given Enoxaparin Sodium (Lovenox) 100 mg SQ Q12 [facility] Famotidine (Pepcid) 20 mg IV Q12 [facility] Last Admin: 06/20/17 21:23 Dose: 20 mg Ferrous Gluconate (Fergon) 324 mg PO DAILY [facility] Last Admin: 06/21/17 09:39 Dose: Not Given Fludrocortisone Acetate (Florinef) 0.1 mg PO BID [facility] Last Admin: 06/20/17 20:30 Dose: Not Given Fluoxetine HCl (Prozac) 20 mg PO DAILY [facility] Last Admin: 06/21/17 09:30 Dose: Not Given Folic Acid (Folic Acid) 1 mg PO DAILY [facility] Last Admin: 06/20/17 10:09 Dose: Not Given Potassium Chloride/Dextrose/Sod Cl (Dextrose 5%-1/2ns W/20meq Kcl) 1,000 mls @ 150 mls/hr IV .Q6H40M [facility] Last Infusion: 06/21/17 09:00 Dose: Infused Iron Carb/Multivit/[employer]/Folic Acid (Multivitamin W/Minerals) 1 tab PO DAILY [facility] Last Admin: 06/20/17 10:09 Dose: Not Given Lorazepam (Ativan) 0 mg IV Q4HP PRN; Protocol PRN Reason: Alcohol Withdrawal Last Admin: 06/20/17 12:24 Dose: 2 mg Magnesium Hydroxide (Milk Of Magnesia) 30 ml PO DAILYP PRN PRN Reason: Constipation Magnesium Oxide (Magnesium Oxide) 400 mg PO BID [facility] Last Admin: 06/20/17 21:23 Dose: 400 mg Mercaptopurine (Mercaptopurine) 50 mg PO QDAY [facility] Last Admin: 06/21/17 09:27 Dose: Not Given Metoprolol Tartrate (Lopressor) 25 mg PO BID [facility] Last Admin: 06/21/17 08:54 Dose: Not Given Metoprolol Tartrate (Lopressor) 5 mg IV Q1HP PRN PRN Reason: Tachyarrhythmias Morphine Sulfate (Morphine) 2 mg IV Q1HP PRN PRN Reason: Pain Last Admin: 06/21/17 03:27 Dose: 2 mg Naloxone HCl (Narcan) 0.1 mg IV Q2MIN PRN PRN Reason: Opiate Reversal Nitroglycerin (Nitrostat) 0.4 mg SL Q5M PRN PRN Reason: Chest Pain Omeprazole (Prilosec) 20 mg PO QAMAC [facility] Last Admin: 06/21/17 09:07 Dose: Not Given Ondansetron HCl (Zofran) 4 mg IV Q6HP PRN PRN Reason: Nausea And Vomiting Adalimumab [Humira] (40 Mg Injection) 1 dose SUB-Q QWEEK [facility] Balsalazide Disodium [Colazal] 750 Mg Cap 1 dose PO DAILY [facility] Last Admin: 06/21/17 09:27 Dose: Not Given Travoprost ( Benzalkonium) 0.004% Eye Drops 1 dose OU HS [facility] Last Admin: 06/20/17 20:31 Dose: Not Given Potassium Chloride (Kdur) 30 meq PO CCHS [facility] Last Admin: 06/20/17 20:30 Dose: Not Given Sodium Chloride (Saline Flush) 10 ml IV Q8 [facility] Last Admin: 06/21/17 05:48 Dose: Not Given Sodium Chloride (Saline Flush) 10 ml IV Q8 [facility] Last Admin: 06/21/17 05:48 Dose: Not Given Thiamine HCl (Vitamin B1) 100 mg PO QDAY [facility] Last Admin: 06/20/17 10:11 Dose: Not Given Vitamin D (Vitamin D3) 2,000 unit PO QID [facility] Last Admin: 06/20/17 21:23 Dose: 2,000 unit Warfarin Sodium (Coumadin Per Pharmacy) 1 order PO UD [facility] Warfarin Sodium (Coumadin) 7.5 mg PO ONCE@1400 ONE Stop: 06/21/17 14:01 Medical - PN: A/P - Time Spent With Patient Total time spent is greater than 50% in coordination of care (as documented) at patient's floor/unit and/or counseling patient: Greater than 35 minutes (1) Fall Status: Acute Current Visit: Yes (2) Abrasion, multiple sites Status: Acute Current Visit: Yes (3) Multiple contusions Status: Acute Current Visit: Yes (4) Nondisplaced type II dens fracture Status: Chronic Current Visit: Yes (5) Supratherapeutic INR Status: Acute Current Visit: Yes (6) Crohn's disease Status: Chronic Current Visit: No - Narrative A/P Narrative: #1. Orthopedic. Patient presents with abnormal CAT scan and cervical x-ray after a fall. He appears to have either a chronic or an acute dens fracture. Radiology has suggested we keep him in the hospital overnight, and do a cervical MRI in the morning, to try to determine if this is chronic versus acute. The ER physician also feels that the patient needs closer observation that he would get if he went home alone. -Patient is still in a cervical collar. He is alert enough to give consent to an MRI today. We will ask radiology to review his cardiac stent and hip implants, to see if he is allowed to have an MRI of his cervical spine today. 2. Neurologic/alcohol intoxication. Patient apparently fell while intoxicated. -He has been in acute alcohol withdrawal for the last 2 days, but seems to be coming out of it today. - Continue CIWA withdrawal protocol. Monitor on telemetry. He was difficult to arouse yesterday, so underwent head CT, which does not show signs of bleeding. 3. GI. History of Crohn's disease. Patient is unable to take oral medications safely, but needs to get these. We placed an NG tube last night. We hope to be able to remove this today, and reviewed resume oral medications. We will place an NG tube for that purpose. Continue current medications. GERD. Continue PPI. 4. CODE STATUS: Full code. 5. DVT prophylaxis: Coumadin is now subtherapeutic. We will bridge with Lovenox, until Coumadin is therapeutic again. We may need to touch base with his other primary care doctor, to see if he is to remain on Coumadin indefinitely, or if this could be discontinued. He is at high risk for falls, given his history of alcohol abuse. 6. Hematologic. Chronic anemia, likely due to chronic disease. 7. Pulmonary. History of PE. Plan resume Coumadin. Try to verify with previous doctor. 8. Cardiovascular. Tachycardia and hypotension from yesterday resolved with IV fluids. 9. Infectious disease. Workup for fever yesterday showed normal chest x-ray and urine. He is afebrile today.
[2017-06-21] MEDS: ENOXAPARIN 100 MG/ML SYRINGE SQ SCH ×2 (12:00→21:58)
[2017-06-21] MEDS: ACETAMINOPHEN 325 MG TABLET PO PRN (12:00)
[2017-06-21] MEDS: FOLIC ACID 1 MG TABLET PO SCH (12:01)
[2017-06-21] MEDS: MULTIVIT,THER IRON,CA,FA & MIN 1 TABLET PO SCH (12:01)
[2017-06-21] MEDS: FAMOTIDINE/PF 20 MG/2 ML VIAL IV SCH ×2 (12:01→21:58)
[2017-06-21] MEDS: MAGNESIUM OXIDE 400 MG TABLET PO SCH ×2 (12:01→21:58)
[2017-06-21] MEDS: POTASSIUM CHLORIDE 10 MEQ TABLET PO SCH ×4 (12:02→21:23)
[2017-06-21] MEDS: THIAMINE 100 MG TABLET PO SCH (12:41)
[2017-06-21] MEDS: VITAMIN D3 1,000 UNIT TABLET PO SCH ×4 (12:41→21:58)
[2017-06-21] MEDS: FLUDROCORTISONE 0.1 MG TABLET PO SCH ×2 (12:52→21:22)
[2017-06-21] MEDS ORDERED: WARFARIN 7.5 MG TABLET PO ONE (14:00)
[2017-06-21] MEDS: LORazepam 2 MG/ML VIAL IV PRN (14:46)
[2017-06-21] MEDS ORDERED: LORazepam 2 MG/ML VIAL IV ONE (15:24)
--- NOTE | 2017-06-21 17:35 | General Surgery Progress Note ---
Subjective Patient reports: no new complaints Narrative: Note initiated : 06/21/17 at 5:33 pm Service Date, if different from initiated Date: [] Patient: Christian Andrews 71 y/o M admitted on 06/19/17 for Neck Pain, Full Body Pain/Nondisplaced II Dens Fx. Chief Complaint: [] Objective Temp Pulse Resp BP Pulse Ox 97.4 F 85 22 125/80 96 06/21/17 12:00 06/21/17 13:24 06/21/17 13:24 06/21/17 12:00 06/21/17 12:00 AVSS. Wound care: Patient seen with KERI Allen . Wounds examined. Dry and clean healing well. - Additional Data Intake & Output - Last 24 hours: Intake & Output 06/19/17 06/20/17 06/21/17 06/22/17 05:59 05:59 05:59 05:59 Intake Total 871 / 871 945 / 945 4045 / 4045 3007 / 3007 Output Total 301 / 301 1492 / 1492 2150 / 2150 1300 / 1300 Balance 570 / 570 -547 / -547 1895 / 1895 1707 / 1707 Weight 216 lb 225 lb 226 lb 3.2 oz - Labs 06/21/17 04:09 06/21/17 04:09 Diabetes panel 06/21/17 Range/Units 04:09 Sodium 136 (133-145) mmol/L Potassium 3.5 (3.3-5.1) mmol/L Chloride 100 (96-108) mmol/L Carbon Dioxide 26 (22-30) mmol/L BUN 5 L (8-23) mg/dl Creatinine 0.6 L (0.7-1.2) mg/dl Glucose 114 H (70-105) mg/dL Calcium 8.2 L (8.6-10.4) mg/dl AST 21 (0-37) U/l ALT 17 (0-40) U/l Alkaline Phosphatase 73 (39-117) U/L Total Protein 5.1 L (5.9-8.4) gm/dL Albumin 2.6 L (3.2-5.2) gm/dL Triglycerides 74 (<150) mg/dl Calcium panel 06/21/17 Range/Units 04:09 Calcium 8.2 L (8.6-10.4) mg/dl Phosphorus 2.4 L (2.7-4.5) mg/dL Albumin 2.6 L (3.2-5.2) gm/dL Pituitary panel 06/21/17 Range/Units 04:09 Sodium 136 (133-145) mmol/L Potassium 3.5 (3.3-5.1) mmol/L Chloride 100 (96-108) mmol/L Carbon Dioxide 26 (22-30) mmol/L BUN 5 L (8-23) mg/dl Creatinine 0.6 L (0.7-1.2) mg/dl Glucose 114 H (70-105) mg/dL Calcium 8.2 L (8.6-10.4) mg/dl Adrenal panel 06/21/17 Range/Units 04:09 Sodium 136 (133-145) mmol/L Potassium 3.5 (3.3-5.1) mmol/L Chloride 100 (96-108) mmol/L Carbon Dioxide 26 (22-30) mmol/L BUN 5 L (8-23) mg/dl Creatinine 0.6 L (0.7-1.2) mg/dl Glucose 114 H (70-105) mg/dL Calcium 8.2 L (8.6-10.4) mg/dl Total Bilirubin 0.8 (0.0-1.0) mg/dL AST 21 (0-37) U/l ALT 17 (0-40) U/l Alkaline Phosphatase 73 (39-117) U/L Total Protein 5.1 L (5.9-8.4) gm/dL Albumin 2.6 L (3.2-5.2) gm/dL Assessment and Plan (1) Abrasion, multiple sites Status: Acute Current Visit: Yes - Narrative A/P Narrative: Assessment: Stable and healing skin wounds. Plan: Continue current treatment. - Time Spent With Patient Total time spent is greater than 50% in coordination of care (as documented) at patient's floor/unit and/or counseling patient: less than 15 minutes
[2017-06-21] MEDS: ATORVASTATIN 20 MG TABLET PO SCH (21:23)
[2017-06-21] MEDS: TRAVOPROST 0.004% OU SCH (21:24)
[2017-06-21] MEDS: EYE OU SCH (21:24)
[2017-06-22] MEDS: IPRATROPIUM/ALBUTEROL 3 ML AMPUL.NEB NEB SCH ×4 (01:08→19:15)
[2017-06-22] MEDS: 0.9 % SODIUM CHLORIDE 10 ML SYRINGE IV SCH ×6 (05:35→21:44)
[2017-06-22] MEDS: DEXTROSE 5%-1/2NS W/20MEQ KCL 1,000 ML IV SCH ×3 (06:42→21:21)
[2017-06-22] MEDS: BUDESONIDE 3 MG CAP.XL.24H PO SCH ×3 (07:04→21:41)
[2017-06-22] MEDS: OMEPRAZOLE 20 MG CAPSULE PO SCH (07:04)
[2017-06-22] MEDS: MERCAPTOPURINE 50 MG TABLET PO SCH (07:20)
[2017-06-22] MEDS: BALSALAZIDE DISODIUM 750 MG PO SCH (07:21)
[2017-06-22] MEDS: POTASSIUM CHLORIDE 10 MEQ TABLET PO SCH ×4 (08:00→21:43)
[2017-06-22] MEDS: BUDESONIDE 0.5 MG/2 ML AMPUL.NEB NEB SCH ×2 (08:10→19:15)
--- NOTE | 2017-06-22 08:51 | General Surgery Progress Note ---
Subjective Patient reports: other (Could NOT get an MRI for visualization of C2 vertebra. No new changes with wounds.) Narrative: Note initiated : 06/22/17 at 8:48 am Service Date, if different from initiated Date: [] Patient: Christian Andrews 71 y/o M admitted on 06/19/17 for Neck Pain, Full Body Pain/Nondisplaced II Dens Fx. Chief Complaint: [] Objective Temp Pulse Resp BP Pulse Ox 98.0 F 77 22 126/88 96 06/22/17 06:56 06/22/17 08:14 06/22/17 08:14 06/22/17 06:56 06/22/17 06:56 AVSS. HD Stable. Resting comfortably. C Collar in place. Face abrasions are resolving well. Other wounds are unchanged. Dressings in place. - Additional Data Intake & Output - Last 24 hours: Intake & Output 06/20/17 06/21/17 06/22/17 06/23/17 05:59 05:59 05:59 05:59 Intake Total 945 / 945 4045 / 4045 4007 / 4007 1000 / 1000 Output Total 1492 / 1492 2150 / 2150 3900 / 3900 Balance -547 / -547 1895 / 1895 107 / 107 1000 / 1000 Weight 225 lb 226 lb 3.2 oz 211 lb 4.8 oz - Labs 06/21/17 04:09 06/21/17 04:09 Assessment and Plan (1) Abrasion, multiple sites Status: Acute Current Visit: Yes - Time Spent With Patient Total time spent is greater than 50% in coordination of care (as documented) at patient's floor/unit and/or counseling patient: Assessment: Patient seen with RN. Stable from wound care point of view. Plan: Continue current treatment / wound care. less than 15 minutes
[2017-06-22] MEDS: VITAMIN D3 1,000 UNIT TABLET PO SCH ×4 (09:00→21:39)
[2017-06-22 10:23] LABS: Basophils # (Auto) 0 K/mcL (0.0-0.3); Basophils % (Auto) 0.9 % (0.0-2.0); Eosinophils # (Auto) 0 K/mcL (0.0-0.7); Eosinophils % (Auto) 1.5 % (0.0-7.0); Granulocytes % (Auto) 56.9 % (38.0-78.0); Lymphocytes # (Auto) 0.8 K/mcL (1.5-4.8); Mean Cell Volume 105.4 fL (80.0-100.0); Mean Corpuscular HGB Conc 34.1 g/dL (31.0-36.0); Monocytes # (Auto) 0.5 K/mcL (0.1-0.9); Monocytes % (Auto) 15.7 % (1.0-12.0); Platelet Count 186 K/mcL (140-440); RBC 2.55 M/mcL (4.50-5.90); Red Cell Distribution Width 15.3 % (11.5-14.5)
[2017-06-22 10:38] LABS: ALT/SGPT 14 U/l (0-40); Albumin 2.3 gm/dL (3.2-5.2); Albumin/Globulin Ratio 0.8 (1.0-2.3); Alkaline Phosphatase 70 U/L (39-117); Bilirubin,Direct 0.2 mg/dL (0.0-0.3); Blood Urea Nitrogen 3 mg/dl (8-23); Gamma Glutamyl Transpeptidase 19 U/L (8-61); Magnesium 1.6 mg/dL (1.6-2.5); Uric Acid 3.8 mg/dL (2.5-8.0)
[2017-06-22] MEDS: QUEtiapine 25 MG TABLET PO PRN ×2 (11:11→21:39)
[2017-06-22] MEDS: MAGNESIUM OXIDE 400 MG TABLET PO SCH ×2 (13:10→21:39)
[2017-06-22] MEDS: ENOXAPARIN 100 MG/ML SYRINGE SQ SCH ×2 (13:10→21:38)
[2017-06-22] MEDS: FLUDROCORTISONE 0.1 MG TABLET PO SCH ×2 (13:10→21:41)
[2017-06-22] MEDS: FAMOTIDINE/PF 20 MG/2 ML VIAL IV SCH ×2 (13:10→21:38)
[2017-06-22] MEDS: MULTIVIT,THER IRON,CA,FA & MIN 1 TABLET PO SCH (13:11)
[2017-06-22] MEDS: FLUoxetine HCL 20 MG CAPSULE PO SCH (13:11)
[2017-06-22] MEDS: HYDROCODONE/APAP 7.5/325MG TABLET PO PRN ×2 (13:11→21:38)
[2017-06-22] MEDS: FOLIC ACID 1 MG TABLET PO SCH (13:12)
[2017-06-22] MEDS: METOPROLOL TARTRATE 25 MG TABLET PO SCH ×2 (13:12→21:39)
[2017-06-22] MEDS: THIAMINE 100 MG TABLET PO SCH (13:31)
[2017-06-22] MEDS: FERROUS GLUCONATE 324 MG TABLET PO SCH (13:32)
[2017-06-22] MEDS ORDERED: WARFARIN 5 MG TABLET PO ONE (14:00)
[2017-06-22] MEDS: ATORVASTATIN 20 MG TABLET PO SCH (21:43)
[2017-06-22] MEDS: EYE OU SCH (21:43)
[2017-06-22] MEDS: TRAVOPROST 0.004% OU SCH (21:43)
--- NOTE | 2017-06-22 22:15 | Internal Med Progress Note ---
Medical - PN: Subj Patient information: Note initiated : 06/22/17 at 10:05 pm Service Date, if different from initiated Date: [] Patient: Christian Andrews 71 y/o M admitted on 06/19/17 for Neck Pain, Full Body Pain/Nondisplaced II Dens Fx. Chief Complaint: f/u delirium, Dens fx Interval history: June 18, 2017: History of present illness: Mr. Andrews is a 71 year old on chronic AC therapy, and probable chronic alcohol abuse. He apparently took a bad fall day before yesterday, and presented to the emergency room for evaluation. His current review of his x- rays showed possible dens fracture, so he was brought back today for more x- rays. CT scan confirms a dens fracture, but could not say for sure if it was chronic. Radiologist recommended that the patient be watched overnight, and undergo MRI in the morning, to decide acuity. The patient admits he had had about 6 drinks the evening of the fall. It was a ground-level fall onto concrete. He is not entirely sure if he hit his head, but it would appear that he did. He has had significant pain since then, including pain in his head and face, neck, bilateral hands, left leg. Prior to his fall, he said he was feeling fine. He had not been having fever chills, headaches or dizziness, new eye or ear symptoms, sore throat or cough, chest pain or palpitations, shortness of breath, abdominal pain, nausea or vomiting, diarrhea or constipation or dysuria. Now he says his vision may be a little blurry. His main complaint is just of generalized pain. He lives alone. He says he has a niece and an uncle here in town. He says they do know that he had a bad fall. June 19: Overnight the patient became more confused. Because of his known alcohol abuse , he was monitored with the [facility] protocol. He did appear to have fairly acute alcohol withdrawal symptoms overnight, with hallucinations, etc. This morning he was to agitated and confused to cooperate with much of anything, and the MRI techs were unable to get him to be still enough to do an MRI. He remains in a cervical collar. This morning, he will open his eyes briefly and try to answer questions, and follow very simple commands, but otherwise speech is not making a lot of sense he was moved to a watch room, due to his high risk for climbing out of bed and pulling lines. As it became more obvious that he was likely in full-blown alcohol withdrawal, he was transferred to telemetry for closer monitoring. He is still not calm enough to do anymore neck or brain scanning. He may require follow-up head CT at some point, to rule out bleeding, although his admission head CT looks fine. Does not report any neck pain today, but his history is unreliable. June 20: The patient remained calm, did not require any more Ativan overnight. He slept most of the night. He snores very loudly, and has a great deal of upper airway noise, but has maintained his O2 saturations fine. This morning when he awakens , he was complaining of a bit of discomfort, so was given some IV morphine. He still is quite confused, and speech is minimal. He is able to say "no" when asked about pain or shortness of breath. Physical therapy was able to get him to follow some commands and move all extremities. He is still not awake enough to give consent for an MRI. Because of his ongoing altered mental status, we did do a head CT today, which shows no signs of bleeding. Nurses are concerned because of his continued loud upper airway noise. They are concerned that his cervical collar might be causing some kind of problem. Unfortunately, the patient does not have contacts or a POA listed. He does have a niece who works here, but has not given permission for us to discuss his care with her. Afternoon, he is a bit tachycardic. The nurses were unable to give him his oral medications this morning, due to his somnolence. Blood pressures are running low, in the 90s. June 21: This morning, the patient is a little more arousable. He still seems a bit groggy, but was more able to answer questions. He was also able to state that he wanted his POA to be his friend, Mayito Cailey. He tells us that he has one coronary stent, and bilateral hip prostheses. We have requested records of those, to see if these will prevent him from having his cervical MRI. He denies significant pain at this time. He denies chest pain or palpitations, shortness of breath, abdominal pain. He remains in a cervical collar. Today is the first day since the night of admission where he seems to be answering most questions appropriately. BiPAP was placed yesterday, and seemed to make his very loud upper airway noises resolved, and his tachypnea resolved. This morning we remove the BiPAP mask, and he was able to maintain his O2 saturations while talking with us, just with oxygen by nasal cannula. He has not been able to get oral meds up until now, due to his obtunded state. He does have an NG tube in place, and we were discussing with family which meds could go down the tube. Hopefully, he will be alert enough this afternoon that he can take things orally. Pro time was elevated on admission, so Coumadin was held. Now INR is low, so he is being bridged with Lovenox, until INR is greater than 2.0, regarding his PE. I do not have information however on when the PE was, and how long he was to stay on Coumadin. June 22: Yesterday afternoon and attempt was made to do the MRI of his cervical spine. He had been lucid and cooperative prior to that. He received 2 mg of lorazepam which have been ordered for anxiety purposes. He became confused and uncooperative in the MRI scanner. A further 4 mg of lorazepam was given, was unable to provide sedation. Throughout the afternoon yesterday, displayed many of the same withdrawal phenomenon that he had had previously including hallucinations. He alternated between sleeping and hallucinating. This morning, continued to have somnolence with periods of hallucinations. Avoiding benzodiazepines, suspect he may have had paradoxical reaction. Seroquel did help. Has been sleeping most of the day. - Constitutional Vitals: Vital Signs Temp Pulse Resp BP Pulse Ox 98.6 F 69 20 119/81 97 06/22/17 16:00 06/22/17 19:25 06/22/17 19:25 06/22/17 16:00 06/22/17 16:00 Period Temp Pulse Resp BP Sys/Phillips Pulse Ox Last 24 Hr 97.6 F-98.6 F 65-78 18-28 119-147/81-103 96-100 Intake and Output 06/22/17 06/22/17 06/23/17 13:59 21:59 05:59 Intake Total 1999 1000 / 1000 Output Total 1750 / 1750 Balance 1999 -750 / -750 Intake & Output: Intake & Output 06/22/17 06/22/17 06/23/17 13:59 21:59 05:59 Intake Total 1999 1000 / 1000 Output Total 1750 / 1750 Balance 1999 -750 / -750 Intake: IV 1999 / 999 Dextrose 5%-1/2Ns W/20Meq KCl 1 1999 1000 / 1000 ,000 ml @ 150 mls/hr IV .Q6H40M [facility] Rx#:[id number] Output: Urine Catheter Amount 1750 / 1750 - Additional findings Additional findings: General: Somnolent, snoring, arousable to touch and voice Chest: Scattered rhonchi, no wheezes, appear unlabored Cardiovascular: Regular, no edema Abdomen: Soft, no apparent tenderness Skin: Ecchymoses and abrasions on left side of body Neuro: Patient arousable, moves all extremities spontaneously Medical - PN: Obj Da - Labs CBC & Chem 7: 06/22/17 08:50 06/22/17 08:50 Labs: Abnormal Lab Results 06/22/17 06/22/17 06/22/17 08:50 08:50 04:08 WBC 3.2 L RBC 2.55 L Hgb 9.2 L Hct 26.8 L MCV 105.4 H MCH 36.0 H RDW 15.3 H MPV 7.0 L Lymph % (Auto) [place] % (Auto) 15.7 H Lymph # (Auto) 0.8 L PT 23.7 H INR 2.0 H Sodium 132 L BUN 3 L Creatinine 0.5 L Glucose 118 H Calcium 8.0 L Phosphorus Lactate Dehydrogenase 347 H Total Protein 5.3 L Albumin 2.3 L Albumin/Globulin Ratio 0.8 L 06/21/17 06/21/17 06/21/17 04:09 04:09 04:09 WBC 3.2 L RBC 2.35 L Hgb 8.5 L Hct 25.0 L MCV 106.0 H MCH 36.0 H RDW 15.9 H MPV 7.3 L Lymph % (Auto) [place] % (Auto) 14.2 H Lymph # (Auto) 0.8 L PT 17.0 H INR 1.3 H Sodium BUN 5 L Creatinine 0.6 L Glucose 114 H Calcium 8.2 L Phosphorus 2.4 L Lactate Dehydrogenase 293 H Total Protein 5.1 L Albumin 2.6 L Albumin/Globulin Ratio 06/20/17 06/20/17 06/20/17 04:05 04:05 04:05 WBC 3.9 L RBC 2.44 L Hgb 8.8 L Hct 25.8 L MCV 106.0 H MCH 36.0 H RDW 15.9 H MPV Lymph % (Auto) 14.3 L [place] % (Auto) 13.5 H Lymph # (Auto) 0.6 L PT 19.0 H INR 1.5 H Sodium BUN 5 L Creatinine 0.6 L Glucose Calcium 8.2 L Phosphorus Lactate Dehydrogenase 322 H Total Protein 5.3 L Albumin 2.8 L Albumin/Globulin Ratio Meds: Medications Acetaminophen (Tylenol) 650 mg PO Q6HP PRN PRN Reason: PAIN/FEVER > 101 Last Admin: 06/21/17 12:00 Dose: 650 mg Hydrocodone Bitart/Acetaminophen ([place] 7.5/325mg) 1 tab PO Q6H PRN PRN Reason: pain Last Admin: 06/22/17 21:38 Dose: 1 tab Albuterol Sulfate (Ventolin) 2.5 mg NEB Q2HP PRN PRN Reason: Shortness Of Breath Albuterol/Ipratropium (Duoneb) 3 ml NEB Q6HRT [facility] Last Admin: 06/22/17 19:15 Dose: 3 ml Atorvastatin Calcium (Lipitor) 20 mg PO HS [facility] Last Admin: 06/22/17 21:43 Dose: Not Given Budesonide (Pulmicort) 0.5 mg NEB Q12 [facility] Last Admin: 06/22/17 19:15 Dose: 0.5 mg Budesonide (Entecort) 3 mg PO TID [facility] Last Admin: 06/22/17 21:41 Dose: Not Given Enoxaparin Sodium (Lovenox) 100 mg SQ Q12 [facility] Last Admin: 06/22/17 21:38 Dose: 100 mg Famotidine (Pepcid) 20 mg IV Q12 [facility] Last Admin: 06/22/17 21:38 Dose: 20 mg Ferrous Gluconate (Fergon) 324 mg PO DAILY [facility] Last Admin: 06/22/17 13:32 Dose: 324 mg Fludrocortisone Acetate (Florinef) 0.1 mg PO BID [facility] Last Admin: 06/22/17 21:41 Dose: Not Given Fluoxetine HCl (Prozac) 20 mg PO DAILY [facility] Last Admin: 06/22/17 13:11 Dose: 20 mg Folic Acid (Folic Acid) 1 mg PO DAILY [facility] Last Admin: 06/22/17 13:12 Dose: 1 mg Potassium Chloride/Dextrose/Sod Cl (Dextrose 5%-1/2ns W/20meq Kcl) 1,000 mls @ 150 mls/hr IV .Q6H40M [facility] Last Admin: 06/22/17 21:21 Dose: 150 mls/hr Iron Carb/Multivit/[place]/Folic Acid (Multivitamin W/Minerals) 1 tab PO DAILY [facility] Last Admin: 06/22/17 13:11 Dose: 1 tab Magnesium Hydroxide (Milk Of Magnesia) 30 ml PO DAILYP PRN PRN Reason: Constipation Last Admin: 06/22/17 13:10 Dose: 30 ml Magnesium Oxide (Magnesium Oxide) 400 mg PO BID [facility] Last Admin: 06/22/17 21:39 Dose: 400 mg Mercaptopurine (Mercaptopurine) 50 mg PO QDAY [facility] Last Admin: 06/22/17 07:20 Dose: Not Given Metoprolol Tartrate (Lopressor) 25 mg PO BID [facility] Last Admin: 06/22/17 21:39 Dose: 25 mg Metoprolol Tartrate (Lopressor) 5 mg IV Q1HP PRN PRN Reason: Tachyarrhythmias Morphine Sulfate (Morphine) 2 mg IV Q1HP PRN PRN Reason: Pain Last Admin: 06/22/17 21:20 Dose: 2 mg Naloxone HCl (Narcan) 0.1 mg IV Q2MIN PRN PRN Reason: Opiate Reversal Nitroglycerin (Nitrostat) 0.4 mg SL Q5M PRN PRN Reason: Chest Pain Omeprazole (Prilosec) 20 mg PO QAMAC [facility] Last Admin: 06/22/17 07:04 Dose: Not Given Ondansetron HCl (Zofran) 4 mg IV Q6HP PRN PRN Reason: Nausea And Vomiting Adalimumab [Humira] (40 Mg Injection) 1 dose SUB-Q QWEEK [facility] Balsalazide Disodium [Colazal] 750 Mg Cap 1 dose PO DAILY [facility] Last Admin: 06/22/17 07:21 Dose: Not Given Travoprost ( Benzalkonium) 0.004% Eye Drops 1 dose OU HS [facility] Last Admin: 06/22/17 21:43 Dose: Not Given Potassium Chloride (Kdur) 30 meq PO CCHS [facility] Last Admin: 06/22/17 21:43 Dose: Not Given Quetiapine Fumarate (Seroquel) 25 mg PO Q8HP PRN PRN Reason: Agitation Last Admin: 06/22/17 21:39 Dose: 25 mg Sodium Chloride (Saline Flush) 10 ml IV Q8 [facility] Last Admin: 06/22/17 21:44 Dose: Not Given Sodium Chloride (Saline Flush) 10 ml IV Q8 [facility] Last Admin: 06/22/17 21:44 Dose: Not Given Thiamine HCl (Vitamin B1) 100 mg PO QDAY [facility] Last Admin: 06/22/17 13:31 Dose: 100 mg Vitamin D (Vitamin D3) 2,000 unit PO QID [facility] Last Admin: 06/22/17 21:39 Dose: 2,000 unit Warfarin Sodium (Coumadin Per Pharmacy) 1 order PO UD [facility] Medical - PN: A/P - Time Spent With Patient Total time spent is greater than 50% in coordination of care (as documented) at patient's floor/unit and/or counseling patient: Greater than 35 minutes - Narrative A/P Narrative: 1. Orthopedic. Patient presents with abnormal CT scan and x-ray of cervical spine after a fall. He has a Dens fracture, unclear if chronic or acute. Hospitalized to obtain MRI of cervical spine. To date have been unable to do so due to delirium. -Patient remains in a cervical collar. He was alert enough to give consent to an MRI Saturday, but appears to reacted to lorazepam and become agitated. Awaiting clearing of sensorium and availability of MRI to clear C-spine 2. Neurologic/alcohol intoxication. Patient fell while intoxicated by his report. -He was in acute alcohol withdrawal for 2 days, then improved Saturday. Worsened symptoms after lorazepam, suspect part of withdrawal symptoms may have been reaction to BZD's instead. -Continue to monitor for withdrawal, but stop lorazepam. Seroquel for agitation. Monitor on telemetry. He was difficult to arouse , head CT did not show bleeding. 3. GI. History of Crohn's disease. Patient is unable to take oral medications safely, but needs to get these. Has NGT in place for any PO's that cannot be crushed. Continue current medications. GERD. Continue PPI. 4. CODE STATUS: Full code. 5. DVT prophylaxis: Coumadin for history of PE. Bridge with Lovenox, when Coumadin is subtherapeutic. We may need to touch base with his other primary care doctor, to see if he is to remain on Coumadin indefinitely, or if this could be discontinued. He is at high risk for falls, given his history of alcohol abuse. 6. Hematologic. Chronic anemia, likely due to chronic disease. 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 7. Pulmonary. History of PE. On Coumadin/Lovenox. 8. Cardiovascular. Tachycardia and hypotension from yesterday resolved with IV fluids. 9. Infectious disease. Workup for fever showed normal chest x-ray and urine. He is afebrile today.
[2017-06-23] MEDS: IPRATROPIUM/ALBUTEROL 3 ML AMPUL.NEB NEB SCH ×4 (01:12→19:25)
[2017-06-23] MEDS: DEXTROSE 5%-1/2NS W/20MEQ KCL 1,000 ML IV SCH ×5 (05:04→16:23)
[2017-06-23] MEDS: 0.9 % SODIUM CHLORIDE 10 ML SYRINGE IV SCH ×4 (05:12→12:24)
[2017-06-23 06:02] LABS: Basophils # (Auto) 0 K/mcL (0.0-0.3); Basophils % (Auto) 0.7 % (0.0-2.0); Eosinophils # (Auto) 0 K/mcL (0.0-0.7); Eosinophils % (Auto) 1.2 % (0.0-7.0); Granulocytes % (Auto) 50.2 % (38.0-78.0); Lymphocytes # (Auto) 1.4 K/mcL (1.5-4.8); Lymphocytes % (Auto) 32.7 % (15.5-49.0); Mean Cell Volume 103.8 fL (80.0-100.0); Mean Corpuscular HGB Conc 34.6 g/dL (31.0-36.0); Mean Corpuscular Hemoglobin 35.9 pg (26.0-34.0); Monocytes # (Auto) 0.6 K/mcL (0.1-0.9); Monocytes % (Auto) 15.2 % (1.0-12.0); Platelet Count 189 K/mcL (140-440); RBC 2.44 M/mcL (4.50-5.90); Red Cell Distribution Width 15.5 % (11.5-14.5)
[2017-06-23 06:15] LABS: ALT/SGPT 13 U/l (0-40); Albumin 2.4 gm/dL (3.2-5.2); Albumin/Globulin Ratio 0.9 (1.0-2.3); Alkaline Phosphatase 70 U/L (39-117); Bilirubin,Direct 0.2 mg/dL (0.0-0.3); Blood Urea Nitrogen 4 mg/dl (8-23); Gamma Glutamyl Transpeptidase 20 U/L (8-61); Magnesium 1.7 mg/dL (1.6-2.5)
[2017-06-23] MEDS ORDERED: FUROSEMIDE 40 MG/4 ML VIAL IV STA (07:06)
[2017-06-23] MEDS: BUDESONIDE 0.5 MG/2 ML AMPUL.NEB NEB SCH ×2 (07:49→19:25)
[2017-06-23] MEDS: OMEPRAZOLE 20 MG CAPSULE PO SCH (07:53)
[2017-06-23] MEDS: POTASSIUM CHLORIDE 10 MEQ TABLET PO SCH ×5 (07:58→21:16)
--- NOTE | 2017-06-23 07:58 | XRay Report ---
CLINICAL INFORMATION: Tachypnea and dyspnea COMPARISON: 06/20/2017 FINDINGS: Borderline cardiomegaly is unchanged. Mediastinum and pulmonary vessels are normal. Subsegmental atelectasis has developed in both medial bases. There are no effusions IMPRESSION: Subsegmental atelectasis in both medial bases - progressing Interpreted and Authenticated by: Hira Hanks 06/23/17
[2017-06-23] MEDS: VITAMIN D3 1,000 UNIT TABLET PO SCH ×4 (08:00→21:29)
[2017-06-23] MEDS: BUDESONIDE 3 MG CAP.XL.24H PO SCH ×3 (08:47→21:30)
[2017-06-23] MEDS: BALSALAZIDE DISODIUM 750 MG PO SCH (08:48)
[2017-06-23] MEDS: MERCAPTOPURINE 50 MG TABLET PO SCH (08:48)
[2017-06-23] MEDS: MAGNESIUM OXIDE 400 MG TABLET PO SCH ×2 (09:00→21:16)
[2017-06-23] MEDS: THIAMINE 100 MG TABLET PO SCH (09:00)
[2017-06-23] MEDS: FLUoxetine HCL 20 MG CAPSULE PO SCH (09:00)
[2017-06-23] MEDS: METOPROLOL TARTRATE 25 MG TABLET PO SCH ×2 (09:00→21:19)
[2017-06-23] MEDS: FLUDROCORTISONE 0.1 MG TABLET PO SCH ×2 (09:00→21:26)
[2017-06-23] MEDS: FERROUS GLUCONATE 324 MG TABLET PO SCH (09:00)
[2017-06-23] MEDS: FOLIC ACID 1 MG TABLET PO SCH (09:00)
[2017-06-23] MEDS: MULTIVIT,THER IRON,CA,FA & MIN 1 TABLET PO SCH (09:00)
[2017-06-23] MEDS: ENOXAPARIN 100 MG/ML SYRINGE SQ SCH ×2 (12:27→21:16)
[2017-06-23] MEDS: FAMOTIDINE/PF 20 MG/2 ML VIAL IV SCH ×2 (12:27→21:16)
[2017-06-23] MEDS ORDERED: ACETAMINOPHEN 1,000 MG/100 ML BOTTLE IV PRN (15:19)
[2017-06-23] MEDS: NYSTATIN 500,000 UNITS/5 ML ORAL.SUSP SSW SCH ×2 (15:52→21:21)
--- NOTE | 2017-06-23 16:19 | XRay Report ---
CLINICAL INFORMATION: NG placement COMPARISON: 06/20/2017 FINDINGS: NG tube is not on the film. Stool gas pattern is grossly normal - no free air or soft tissue mass IMPRESSION: No acute disease. NG tube is not on the film. The film includes almost the entire thoracic esophagus Interpreted and Authenticated by: Hira Hanks 06/23/17
--- NOTE | 2017-06-23 18:20 | Internal Med Progress Note ---
Medical - PN: Subj Patient information: Note initiated : 06/23/17 at 6:14 pm Service Date, if different from initiated Date: [] Patient: Christian Andrews 71 y/o M admitted on 06/19/17 for Neck Pain, Full Body Pain/Nondisplaced II Dens Fx. Chief Complaint: f/u delirium Interval history: June 18, 2017: History of present illness: Mr. Andrews is a 71 year old on chronic AC therapy, and probable chronic alcohol abuse. He apparently took a bad fall day before yesterday, and presented to the emergency room for evaluation. His current review of his x- rays showed possible dens fracture, so he was brought back today for more x- rays. CT scan confirms a dens fracture, but could not say for sure if it was chronic. Radiologist recommended that the patient be watched overnight, and undergo MRI in the morning, to decide acuity. The patient admits he had had about 6 drinks the evening of the fall. It was a ground-level fall onto concrete. He is not entirely sure if he hit his head, but it would appear that he did. He has had significant pain since then, including pain in his head and face, neck, bilateral hands, left leg. Prior to his fall, he said he was feeling fine. He had not been having fever chills, headaches or dizziness, new eye or ear symptoms, sore throat or cough, chest pain or palpitations, shortness of breath, abdominal pain, nausea or vomiting, diarrhea or constipation or dysuria. Now he says his vision may be a little blurry. His main complaint is just of generalized pain. He lives alone. He says he has a niece and an uncle here in town. He says they do know that he had a bad fall. June 19: Overnight the patient became more confused. Because of his known alcohol abuse , he was monitored with the [facility] protocol. He did appear to have fairly acute alcohol withdrawal symptoms overnight, with hallucinations, etc. This morning he was to agitated and confused to cooperate with much of anything, and the MRI techs were unable to get him to be still enough to do an MRI. He remains in a cervical collar. This morning, he will open his eyes briefly and try to answer questions, and follow very simple commands, but otherwise speech is not making a lot of sense he was moved to a watch room, due to his high risk for climbing out of bed and pulling lines. As it became more obvious that he was likely in full-blown alcohol withdrawal, he was transferred to telemetry for closer monitoring. He is still not calm enough to do anymore neck or brain scanning. He may require follow-up head CT at some point, to rule out bleeding, although his admission head CT looks fine. Does not report any neck pain today, but his history is unreliable. June 20: The patient remained calm, did not require any more Ativan overnight. He slept most of the night. He snores very loudly, and has a great deal of upper airway noise, but has maintained his O2 saturations fine. This morning when he awakens , he was complaining of a bit of discomfort, so was given some IV morphine. He still is quite confused, and speech is minimal. He is able to say "no" when asked about pain or shortness of breath. Physical therapy was able to get him to follow some commands and move all extremities. He is still not awake enough to give consent for an MRI. Because of his ongoing altered mental status, we did do a head CT today, which shows no signs of bleeding. Nurses are concerned because of his continued loud upper airway noise. They are concerned that his cervical collar might be causing some kind of problem. Unfortunately, the patient does not have contacts or a POA listed. He does have a niece who works here, but has not given permission for us to discuss his care with her. Afternoon, he is a bit tachycardic. The nurses were unable to give him his oral medications this morning, due to his somnolence. Blood pressures are running low, in the 90s. June 21: This morning, the patient is a little more arousable. He still seems a bit groggy, but was more able to answer questions. He was also able to state that he wanted his POA to be his friend, Mayito Cailey. He tells us that he has one coronary stent, and bilateral hip prostheses. We have requested records of those, to see if these will prevent him from having his cervical MRI. He denies significant pain at this time. He denies chest pain or palpitations, shortness of breath, abdominal pain. He remains in a cervical collar. Today is the first day since the night of admission where he seems to be answering most questions appropriately. BiPAP was placed yesterday, and seemed to make his very loud upper airway noises resolved, and his tachypnea resolved. This morning we remove the BiPAP mask, and he was able to maintain his O2 saturations while talking with us, just with oxygen by nasal cannula. He has not been able to get oral meds up until now, due to his obtunded state. He does have an NG tube in place, and we were discussing with family which meds could go down the tube. Hopefully, he will be alert enough this afternoon that he can take things orally. Pro time was elevated on admission, so Coumadin was held. Now INR is low, so he is being bridged with Lovenox, until INR is greater than 2.0, regarding his PE. I do not have information however on when the PE was, and how long he was to stay on Coumadin. June 22: Yesterday afternoon and attempt was made to do the MRI of his cervical spine. He had been lucid and cooperative prior to that. He received 2 mg of lorazepam which have been ordered for anxiety purposes. He became confused and uncooperative in the MRI scanner. A further 4 mg of lorazepam was given, was unable to provide sedation. Throughout the afternoon yesterday, displayed many of the same withdrawal phenomenon that he had had previously including hallucinations. He alternated between sleeping and hallucinating. This morning, continued to have somnolence with periods of hallucinations. Avoiding benzodiazepines, suspect he may have had paradoxical reaction. Seroquel did help. Has been sleeping most of the day. June 23: Lot of upper airway, rhonchorous sounds in's morning, unable to cough and clear. Persist despite deep suctioning. Received a dose of furosemide, that improved things. We'll considering starting tube feeding, with abdominal film to check NGT, it appears pimpled back. When they tried to replace it was unsuccessful, he developed epistaxis and tube was removed. This afternoon has been more alert at times mumbling and appropriate responses. He did receive morphine last night for pain. This afternoon, when I asked if his neck hurt he said yes. He apparently was able to provide some history that he'd had a neck injury in the past and had MRI, but we do not know where that may have occurred. - Constitutional Vitals: Vital Signs Temp Pulse Resp BP Pulse Ox 98.3 F 78 23 H 132/72 96 06/23/17 15:48 06/23/17 13:53 06/23/17 15:48 06/23/17 15:48 06/23/17 15:48 Period Temp Pulse Resp BP Sys/Phillips Pulse Ox Last 24 Hr 98.0 F-98.3 F 69-80 20-28 107-160/65-125 92-100 Intake and Output 06/23/17 06/23/17 06/23/17 05:59 13:59 21:59 Intake Total 1000 / 1000 423 / 423 577 / 577 Output Total 1100 / 1100 1850 / 1850 Balance -100 / -100 423 / 423 -1273 / -1273 Weight 213 lb 6.4 oz Patient Weight 06/24/17 05:59 Weight 213 lb 6.4 oz Intake & Output: Intake & Output 06/23/17 06/23/17 06/23/17 05:59 13:59 21:59 Intake Total 1000 / 1000 423 / 423 577 / 577 Output Total 1100 / 1100 1850 / 1850 Balance -100 / -100 423 / 423 -1273 / -1273 Weight 213 lb 6.4 oz Intake: IV 1000 / 1000 423 / 423 577 / 577 Dextrose 5%-1/2Ns W/20Meq KCl 1 1000 / 1000 423 / 423 ,000 ml @ 150 mls/hr IV .Q6H40M [facility] Rx#:[id number] Output: Urine Catheter Amount 1100 / 1100 1850 / 1850 Other: # Bowel Movements 0 - Additional findings Additional findings: General: Laying in bed, later in the day responsive to voice and shake Neck: In C-collar Chest: Initially with rhonchorous breath sounds, later clear Cardiovascular: Regular, no lower extremity edema Abdomen: Soft, no apparent tenderness Neuro: This afternoon, rousing, mumbling responses but answering questions. Moving all extremities. Medical - PN: Obj Da - Labs CBC & Chem 7: 06/23/17 04:00 06/23/17 04:00 Labs: Abnormal Lab Results 06/23/17 06/23/17 06/23/17 04:00 04:00 04:00 WBC 4.2 L RBC 2.44 L Hgb 8.8 L Hct 25.3 L MCV 103.8 H MCH 35.9 H RDW 15.5 H MPV 7.1 L [place] % (Auto) 15.2 H Lymph # (Auto) 1.4 L PT 30.6 H INR 2.8 H Sodium 132 L BUN 4 L Creatinine 0.5 L Glucose Calcium 7.7 L Phosphorus Lactate Dehydrogenase 277 H Total Protein 5.2 L Albumin 2.4 L Albumin/Globulin Ratio 0.9 L 06/22/17 06/22/17 06/22/17 08:50 08:50 04:08 WBC 3.2 L RBC 2.55 L Hgb 9.2 L Hct 26.8 L MCV 105.4 H MCH 36.0 H RDW 15.3 H MPV 7.0 L [place] % (Auto) 15.7 H Lymph # (Auto) 0.8 L PT 23.7 H INR 2.0 H Sodium 132 L BUN 3 L Creatinine 0.5 L Glucose 118 H Calcium 8.0 L Phosphorus Lactate Dehydrogenase 347 H Total Protein 5.3 L Albumin 2.3 L Albumin/Globulin Ratio 0.8 L 06/21/17 06/21/17 06/21/17 04:09 04:09 04:09 WBC 3.2 L RBC 2.35 L Hgb 8.5 L Hct 25.0 L MCV 106.0 H MCH 36.0 H RDW 15.9 H MPV 7.3 L [place] % (Auto) 14.2 H Lymph # (Auto) 0.8 L PT 17.0 H INR 1.3 H Sodium BUN 5 L Creatinine 0.6 L Glucose 114 H Calcium 8.2 L Phosphorus 2.4 L Lactate Dehydrogenase 293 H Total Protein 5.1 L Albumin 2.6 L Albumin/Globulin Ratio Meds: Medications Acetaminophen (Tylenol) 650 mg PO Q6HP PRN PRN Reason: PAIN/FEVER > 101 Last Admin: 06/21/17 12:00 Dose: 650 mg Hydrocodone Bitart/Acetaminophen ([place] 7.5/325mg) 1 tab PO Q6H PRN PRN Reason: pain Last Admin: 06/22/17 21:38 Dose: 1 tab Albuterol Sulfate (Ventolin) 2.5 mg NEB Q2HP PRN PRN Reason: Shortness Of Breath Albuterol/Ipratropium (Duoneb) 3 ml NEB Q6HRT [place] Last Admin: 06/23/17 13:52 Dose: 3 ml Atorvastatin Calcium (Lipitor) 20 mg PO HS [facility] Last Admin: 06/22/17 21:43 Dose: Not Given Budesonide (Pulmicort) 0.5 mg NEB Q12 [facility] Last Admin: 06/23/17 07:49 Dose: 0.5 mg Budesonide (Entecort) 3 mg PO TID [facility] Last Admin: 06/23/17 14:09 Dose: Not Given Enoxaparin Sodium (Lovenox) 100 mg SQ Q12 [facility] Last Admin: 06/23/17 12:27 Dose: 100 mg Famotidine (Pepcid) 20 mg IV Q12 [facility] Last Admin: 06/23/17 12:27 Dose: 20 mg Ferrous Gluconate (Fergon) 324 mg PO DAILY [facility] Last Admin: 06/23/17 09:00 Dose: Not Given Fludrocortisone Acetate (Florinef) 0.1 mg PO BID [facility] Last Admin: 06/23/17 09:00 Dose: Not Given Fluoxetine HCl (Prozac) 20 mg PO DAILY [facility] Last Admin: 06/23/17 09:00 Dose: Not Given Folic Acid (Folic Acid) 1 mg PO DAILY [facility] Last Admin: 06/23/17 09:00 Dose: Not Given Potassium Chloride/Dextrose/Sod Cl (Dextrose 5%-1/2ns W/20meq Kcl) 1,000 mls @ 100 mls/hr IV .Q10H [facility] Last Admin: 06/23/17 16:23 Dose: Not Given Acetaminophen (Ofirmev) 1,000 mg in 100 mls @ 200 mls/hr IV Q6HP PRN PRN Reason: PAIN/FEVER > 101 Iron Carb/Multivit/Labette/Folic Acid (Multivitamin W/Minerals) 1 tab PO DAILY [facility] Last Admin: 06/23/17 09:00 Dose: Not Given Magnesium Hydroxide (Milk Of Magnesia) 30 ml PO DAILYP PRN PRN Reason: Constipation Last Admin: 06/22/17 13:10 Dose: 30 ml Magnesium Oxide (Magnesium Oxide) 400 mg PO BID [facility] Last Admin: 06/23/17 09:00 Dose: Not Given Mercaptopurine (Mercaptopurine) 50 mg PO QDAY [facility] Last Admin: 06/23/17 08:48 Dose: Not Given Metoprolol Tartrate (Lopressor) 25 mg PO BID [facility] Last Admin: 06/23/17 09:00 Dose: Not Given Metoprolol Tartrate (Lopressor) 5 mg IV Q1HP PRN PRN Reason: Tachyarrhythmias Morphine Sulfate (Morphine) 2 mg IV Q1HP PRN PRN Reason: Pain Last Admin: 06/23/17 05:35 Dose: 2 mg Naloxone HCl (Narcan) 0.1 mg IV Q2MIN PRN PRN Reason: Opiate Reversal Nitroglycerin (Nitrostat) 0.4 mg SL Q5M PRN PRN Reason: Chest Pain Nystatin (Nystatin) 500,000 units SSW TID [facility] Last Admin: 06/23/17 15:52 Dose: 500,000 units Omeprazole (Prilosec) 20 mg PO QAMAC [facility] Last Admin: 06/23/17 07:53 Dose: Not Given Ondansetron HCl (Zofran) 4 mg IV Q6HP PRN PRN Reason: Nausea And Vomiting Adalimumab [Humira] (40 Mg Injection) 1 dose SUB-Q QWEEK [facility] Balsalazide Disodium [Colazal] 750 Mg Cap 1 dose PO DAILY [facility] Last Admin: 06/23/17 08:48 Dose: Not Given Travoprost ( Benzalkonium) 0.004% Eye Drops 1 dose OU HS [facility] Last Admin: 06/22/17 21:43 Dose: Not Given Potassium Chloride (Kdur) 30 meq PO CCHS [facility] Last Admin: 06/23/17 15:50 Dose: Not Given Quetiapine Fumarate (Seroquel) 25 mg PO Q8HP PRN PRN Reason: Agitation Last Admin: 06/22/17 21:39 Dose: 25 mg Sodium Chloride (Saline Flush) 10 ml IV Q8 [facility] Last Admin: 06/23/17 12:23 Dose: 10 ml Sodium Chloride (Saline Flush) 10 ml IV Q8 [facility] Last Admin: 06/23/17 12:24 Dose: 10 ml Thiamine HCl (Vitamin B1) 100 mg PO QDAY [facility] Last Admin: 06/23/17 09:00 Dose: Not Given Vitamin D (Vitamin D3) 2,000 unit PO QID [facility] Last Admin: 06/23/17 15:14 Dose: Not Given Warfarin Sodium (Coumadin Per Pharmacy) 1 order PO UD [facility] - Impressions CXR, reviewed: IMPRESSION: Subsegmental atelectasis in both medial bases - progressing Abd XR, reviewed: IMPRESSION: No acute disease. NG tube is not on the film. 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 Orthopedic. Patient presents with abnormal CT scan and x-ray of cervical spine after a fall. He has a Dens fracture, unclear if chronic or acute. Hospitalized to obtain MRI of cervical spine. To date have been unable to do so due to delirium and encephalopathy -Patient remains in a cervical collar. He was alert enough to give consent to an MRI Saturday, but appears to reacted to lorazepam and become agitated. Awaiting clearing of sensorium and availability of MRI to clear C-spine 2. Neurologic/alcohol intoxication. Patient fell while intoxicated by his report. -He was in acute alcohol withdrawal for 2 days, then improved Saturday. Worsened symptoms after lorazepam, suspect part of withdrawal symptoms may have been reaction to BZD's instead. -Now with suspected toxic/metabolic encephalopathy. Attempt to minimize [employer] active medications. -Lorazepam stopped. Monitor for withdrawal, but should be through most by now. Seroquel for agitation. Monitor on telemetry. He was difficult to arouse , head CT did not show bleeding. 3. GI. History of Crohn's disease. Patient is unable to take oral medications safely. When he had NGT, meds couldn 't be crushed. NGT now out, but mental status improving. Continue current medications. GERD. Continue PPI. 4. CODE STATUS: Full code. 5. DVT prophylaxis: Coumadin for history of PE. Bridge with Lovenox, when Coumadin is subtherapeutic. We may need to touch base with his other primary care doctor, to see if he is to remain on Coumadin indefinitely, or if this could be discontinued. He is at high risk for falls, given his history of alcohol abuse. 6. Hematologic. Chronic anemia, likely due to chronic disease. 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 7. Pulmonary. History of PE. On Coumadin/Lovenox. Secretions and rhonchorous breath sounds--improved after furosemide, IVF turned down. 8. Cardiovascular. Tachycardia and hypotension from Saturday resolved with IV fluids; received one dose of lasix. 9. Infectious disease. Workup for fever showed normal chest x-ray and urine. He is afebrile today.
[2017-06-23] MEDS: ATORVASTATIN 20 MG TABLET PO SCH (21:29)
[2017-06-23] MEDS: EYE OU SCH (21:30)
[2017-06-23] MEDS: TRAVOPROST 0.004% OU SCH (21:30)
[2017-06-24] MEDS: 0.9 % SODIUM CHLORIDE 10 ML SYRINGE IV SCH ×8 (00:43→20:46)
[2017-06-24] MEDS: IPRATROPIUM/ALBUTEROL 3 ML AMPUL.NEB NEB SCH ×4 (00:44→19:05)
[2017-06-24] MEDS: DEXTROSE 5%-1/2NS W/20MEQ KCL 1,000 ML IV SCH ×5 (01:19→21:35)
[2017-06-24 05:34] LABS: Basophils # (Auto) 0 K/mcL (0.0-0.3); Basophils % (Auto) 0.5 % (0.0-2.0); Eosinophils # (Auto) 0 K/mcL (0.0-0.7); Eosinophils % (Auto) 0.7 % (0.0-7.0); Granulocytes % (Auto) 49.5 % (38.0-78.0); Lymphocytes # (Auto) 1.8 K/mcL (1.5-4.8); Lymphocytes % (Auto) 36.1 % (15.5-49.0); Mean Cell Volume 103.6 fL (80.0-100.0); Mean Corpuscular HGB Conc 34.1 g/dL (31.0-36.0); Mean Corpuscular Hemoglobin 35.4 pg (26.0-34.0); Monocytes # (Auto) 0.6 K/mcL (0.1-0.9); Monocytes % (Auto) 13.2 % (1.0-12.0); Platelet Count 227 K/mcL (140-440); RBC 2.42 M/mcL (4.50-5.90); Red Cell Distribution Width 15.5 % (11.5-14.5)
[2017-06-24 06:06] LABS: ALT/SGPT 14 U/l (0-40); Albumin 2.2 gm/dL (3.2-5.2); Albumin/Globulin Ratio 0.7 (1.0-2.3); Alkaline Phosphatase 77 U/L (39-117); Bilirubin,Direct 0.5 mg/dL (0.0-0.3); Blood Urea Nitrogen 8 mg/dl (8-23); Gamma Glutamyl Transpeptidase 28 U/L (8-61); Uric Acid 3.8 mg/dL (2.5-8.0)
[2017-06-24] MEDS: BUDESONIDE 0.5 MG/2 ML AMPUL.NEB NEB SCH ×2 (07:58→19:05)
[2017-06-24] MEDS: OMEPRAZOLE 20 MG CAPSULE PO SCH (08:35)
[2017-06-24] MEDS: MULTIVIT,THER IRON,CA,FA & MIN 1 TABLET PO SCH (09:43)
[2017-06-24] MEDS: POTASSIUM CHLORIDE 10 MEQ TABLET PO SCH ×4 (09:43→20:44)
[2017-06-24] MEDS: FOLIC ACID 1 MG TABLET PO SCH (09:43)
[2017-06-24] MEDS: FLUDROCORTISONE 0.1 MG TABLET PO SCH ×2 (09:43→20:44)
[2017-06-24] MEDS: MAGNESIUM OXIDE 400 MG TABLET PO SCH ×2 (09:43→20:44)
[2017-06-24] MEDS: METOPROLOL TARTRATE 25 MG TABLET PO SCH ×2 (09:44→20:44)
[2017-06-24] MEDS: FERROUS GLUCONATE 324 MG TABLET PO SCH (09:44)
[2017-06-24] MEDS: ENOXAPARIN 100 MG/ML SYRINGE SQ SCH ×2 (09:44→20:45)
[2017-06-24] MEDS: FLUoxetine HCL 20 MG CAPSULE PO SCH (09:44)
[2017-06-24] MEDS: VITAMIN D3 1,000 UNIT TABLET PO SCH ×4 (09:44→20:43)
[2017-06-24] MEDS: THIAMINE 100 MG TABLET PO SCH (09:44)
[2017-06-24] MEDS: FAMOTIDINE/PF 20 MG/2 ML VIAL IV SCH ×2 (09:45→20:42)
[2017-06-24] MEDS: NYSTATIN 500,000 UNITS/5 ML ORAL.SUSP SSW SCH ×3 (09:45→20:42)
[2017-06-24] MEDS: BUDESONIDE 3 MG CAP.XL.24H PO SCH ×3 (09:45→20:46)
[2017-06-24] MEDS: MERCAPTOPURINE 50 MG TABLET PO SCH (09:46)
[2017-06-24] MEDS: BALSALAZIDE DISODIUM 750 MG PO SCH (10:06)
[2017-06-24] MEDS: HYDROCODONE/APAP 7.5/325MG TABLET PO PRN ×3 (10:15→20:45)
--- NOTE | 2017-06-24 19:52 | Internal Med Progress Note ---
Medical - PN: Subj Patient information: Note initiated : 06/24/17 at 7:50 pm Service Date, if different from initiated Date: [] Patient: Christian Andrews 71 y/o M admitted on 06/19/17 for Neck Pain, Full Body Pain/Nondisplaced II Dens Fx. Chief Complaint: f/u fracture, encephalopathy Interval history: June 18, 2017: History of present illness: Mr. Andrews is a 71 year old on chronic AC therapy, and probable chronic alcohol abuse. He apparently took a bad fall day before yesterday, and presented to the emergency room for evaluation. His current review of his x- rays showed possible dens fracture, so he was brought back today for more x- rays. CT scan confirms a dens fracture, but could not say for sure if it was chronic. Radiologist recommended that the patient be watched overnight, and undergo MRI in the morning, to decide acuity. The patient admits he had had about 6 drinks the evening of the fall. It was a ground-level fall onto concrete. He is not entirely sure if he hit his head, but it would appear that he did. He has had significant pain since then, including pain in his head and face, neck, bilateral hands, left leg. Prior to his fall, he said he was feeling fine. He had not been having fever chills, headaches or dizziness, new eye or ear symptoms, sore throat or cough, chest pain or palpitations, shortness of breath, abdominal pain, nausea or vomiting, diarrhea or constipation or dysuria. Now he says his vision may be a little blurry. His main complaint is just of generalized pain. He lives alone. He says he has a niece and an uncle here in town. He says they do know that he had a bad fall. June 19: Overnight the patient became more confused. Because of his known alcohol abuse , he was monitored with the [facility] protocol. He did appear to have fairly acute alcohol withdrawal symptoms overnight, with hallucinations, etc. This morning he was to agitated and confused to cooperate with much of anything, and the MRI techs were unable to get him to be still enough to do an MRI. He remains in a cervical collar. This morning, he will open his eyes briefly and try to answer questions, and follow very simple commands, but otherwise speech is not making a lot of sense he was moved to a watch room, due to his high risk for climbing out of bed and pulling lines. As it became more obvious that he was likely in full-blown alcohol withdrawal, he was transferred to telemetry for closer monitoring. He is still not calm enough to do anymore neck or brain scanning. He may require follow-up head CT at some point, to rule out bleeding, although his admission head CT looks fine. Does not report any neck pain today, but his history is unreliable. June 20: The patient remained calm, did not require any more Ativan overnight. He slept most of the night. He snores very loudly, and has a great deal of upper airway noise, but has maintained his O2 saturations fine. This morning when he awakens , he was complaining of a bit of discomfort, so was given some IV morphine. He still is quite confused, and speech is minimal. He is able to say "no" when asked about pain or shortness of breath. Physical therapy was able to get him to follow some commands and move all extremities. He is still not awake enough to give consent for an MRI. Because of his ongoing altered mental status, we did do a head CT today, which shows no signs of bleeding. Nurses are concerned because of his continued loud upper airway noise. They are concerned that his cervical collar might be causing some kind of problem. Unfortunately, the patient does not have contacts or a POA listed. He does have a niece who works here, but has not given permission for us to discuss his care with her. Afternoon, he is a bit tachycardic. The nurses were unable to give him his oral medications this morning, due to his somnolence. Blood pressures are running low, in the 90s. June 21: This morning, the patient is a little more arousable. He still seems a bit groggy, but was more able to answer questions. He was also able to state that he wanted his POA to be his friend, Mayito Camarena. He tells us that he has one coronary stent, and bilateral hip prostheses. We have requested records of those, to see if these will prevent him from having his cervical MRI. He denies significant pain at this time. He denies chest pain or palpitations, shortness of breath, abdominal pain. He remains in a cervical collar. Today is the first day since the night of admission where he seems to be answering most questions appropriately. BiPAP was placed yesterday, and seemed to make his very loud upper airway noises resolved, and his tachypnea resolved. This morning we remove the BiPAP mask, and he was able to maintain his O2 saturations while talking with us, just with oxygen by nasal cannula. He has not been able to get oral meds up until now, due to his obtunded state. He does have an NG tube in place, and we were discussing with family which meds could go down the tube. Hopefully, he will be alert enough this afternoon that he can take things orally. Pro time was elevated on admission, so Coumadin was held. Now INR is low, so he is being bridged with Lovenox, until INR is greater than 2.0, regarding his PE. I do not have information however on when the PE was, and how long he was to stay on Coumadin. June 22: Yesterday afternoon and attempt was made to do the MRI of his cervical spine. He had been lucid and cooperative prior to that. He received 2 mg of lorazepam which have been ordered for anxiety purposes. He became confused and uncooperative in the MRI scanner. A further 4 mg of lorazepam was given, was unable to provide sedation. Throughout the afternoon yesterday, displayed many of the same withdrawal phenomenon that he had had previously including hallucinations. He alternated between sleeping and hallucinating. This morning, continued to have somnolence with periods of hallucinations. Avoiding benzodiazepines, suspect he may have had paradoxical reaction. Seroquel did help. Has been sleeping most of the day. June 23: Lot of upper airway, rhonchorous sounds in's morning, unable to cough and clear. Persist despite deep suctioning. Received a dose of furosemide, that improved things. We'll considering starting tube feeding, with abdominal film to check NGT, it appears pimpled back. When they tried to replace it was unsuccessful, he developed epistaxis and tube was removed. This afternoon has been more alert at times mumbling and appropriate responses. He did receive morphine last night for pain. This afternoon, when I asked if his neck hurt he said yes. He apparently was able to provide some history that he'd had a neck injury in the past and had MRI, but we do not know where that may have occurred. June 24 More awake and alert today, by the end of afternoon sitting up in the chair, getting annoyed still being in the hospital. Is complaining of neck pain which is ongoing. No focal neurologic deficit. Told his nurse she has wants to go home and have his Ron Stone. Arrangements for MRI of the cervical spine are made for tomorrow. Conscious sedation will be on hand if needed. - Constitutional Vitals: Vital Signs Temp Pulse Resp BP Pulse Ox 98.9 F 75 18 107/69 94 06/24/17 19:37 06/24/17 19:24 06/24/17 19:37 06/24/17 19:37 06/24/17 19:37 Period Temp Pulse Resp BP Sys/Phillips Pulse Ox Last 24 Hr 97.8 F-99.2 F 68-79 16-20 69-107/39-69 93-98 Intake and Output 06/24/17 06/24/17 06/24/17 05:59 13:59 21:59 Intake Total 1000 / 1000 1003 / 1003 250 / 250 Output Total 1700 / 1700 1400 / 1400 950 / 950 Balance -700 / -700 -397 / -397 -700 / -700 Weight 208 lb 206 lb 14.4 oz Patient Weight 06/25/17 05:59 Weight 206 lb 14.4 oz Intake & Output: Intake & Output 06/24/17 06/24/17 06/24/17 05:59 13:59 21:59 Intake Total 1000 / 1000 1003 / 1003 250 / 250 Output Total 1700 / 1700 1400 / 1400 950 / 950 Balance -700 / -700 -397 / -397 -700 / -700 Weight 208 lb 206 lb 14.4 oz Intake: IV 1000 / 1000 903 / 903 Dextrose 5%-1/2Ns W/20Meq KCl 1 1000 / 1000 903 / 903 ,000 ml @ 100 mls/hr IV .Q10H [facility] Rx#:[id number] Oral 100 / 100 250 / 250 Output: Urine Catheter Amount 1700 / 1700 900 / 900 950 / 950 Stool 500 / 500 Other: Meal Nourishment/Supplement Percent of Meal Consumed 100% Feeding Ability Independent # Bowel Movements 1 1 # of times incontinent of 1 Bowels - Additional findings Additional findings: General: Sitting up in chair, alert, in no distress Neck: In cervical collar Chest: Clear, no rales, no rhonchi Cardiovascular: Regular rate and rhythm Abdomen: Soft, nontender Skin: Multiple ecchymoses on left side of the body Neuro: Awake, alert and oriented to person, place, situation. Moves all extremities equally. Medical - PN: Obj Da - Labs CBC & Chem 7: 06/24/17 03:49 06/24/17 03:49 Labs: Abnormal Lab Results 06/24/17 06/24/17 06/24/17 03:49 03:49 03:49 WBC RBC 2.42 L Hgb 8.6 L Hct 25.0 L MCV 103.6 H MCH 35.4 H RDW 15.5 H MPV 7.1 L Rooks % (Auto) 13.2 H Lymph # (Auto) PT 33.5 H INR 3.1 H Sodium BUN Creatinine Glucose Calcium 8.1 L Total Bilirubin 1.3 H Direct Bilirubin 0.5 H Lactate Dehydrogenase 264 H Total Protein 5.3 L Albumin 2.2 L Albumin/Globulin Ratio 0.7 L 06/23/17 06/23/17 06/23/17 04:00 04:00 04:00 WBC 4.2 L RBC 2.44 L Hgb 8.8 L Hct 25.3 L MCV 103.8 H MCH 35.9 H RDW 15.5 H MPV 7.1 L Rooks % (Auto) 15.2 H Lymph # (Auto) 1.4 L PT 30.6 H INR 2.8 H Sodium 132 L BUN 4 L Creatinine 0.5 L Glucose Calcium 7.7 L Total Bilirubin Direct Bilirubin Lactate Dehydrogenase 277 H Total Protein 5.2 L Albumin 2.4 L Albumin/Globulin Ratio 0.9 L 06/22/17 06/22/17 06/22/17 08:50 08:50 04:08 WBC 3.2 L RBC 2.55 L Hgb 9.2 L Hct 26.8 L MCV 105.4 H MCH 36.0 H RDW 15.3 H MPV 7.0 L Rooks % (Auto) 15.7 H Lymph # (Auto) 0.8 L PT 23.7 H INR 2.0 H Sodium 132 L BUN 3 L Creatinine 0.5 L Glucose 118 H Calcium 8.0 L Total Bilirubin Direct Bilirubin Lactate Dehydrogenase 347 H Total Protein 5.3 L Albumin 2.3 L Albumin/Globulin Ratio 0.8 L Meds: Medications Acetaminophen (Tylenol) 650 mg PO Q6HP PRN PRN Reason: PAIN/FEVER > 101 Last Admin: 06/21/17 12:00 Dose: 650 mg Hydrocodone Bitart/Acetaminophen ([place] 7.5/325mg) 1 tab PO Q6H PRN PRN Reason: pain Last Admin: 06/24/17 14:22 Dose: 1 tab Albuterol Sulfate (Ventolin) 2.5 mg NEB Q2HP PRN PRN Reason: Shortness Of Breath Albuterol/Ipratropium (Duoneb) 3 ml NEB Q6HRT [facility] Last Admin: 06/24/17 19:05 Dose: 3 ml Atorvastatin Calcium (Lipitor) 20 mg PO HS [facility] Last Admin: 06/23/17 21:29 Dose: 20 mg Budesonide (Pulmicort) 0.5 mg NEB Q12 [facility] Last Admin: 06/24/17 19:05 Dose: 0.5 mg Budesonide (Entecort) 3 mg PO TID [facility] Last Admin: 06/24/17 16:27 Dose: Not Given Enoxaparin Sodium (Lovenox) 100 mg SQ Q12 [facility] Last Admin: 06/24/17 09:44 Dose: 100 mg Famotidine (Pepcid) 20 mg IV Q12 [facility] Last Admin: 06/24/17 09:45 Dose: 20 mg Ferrous Gluconate (Fergon) 324 mg PO DAILY [facility] Last Admin: 06/24/17 09:44 Dose: 324 mg Fludrocortisone Acetate (Florinef) 0.1 mg PO BID [facility] Last Admin: 06/24/17 09:43 Dose: 0.1 mg Fluoxetine HCl (Prozac) 20 mg PO DAILY [facility] Last Admin: 06/24/17 09:44 Dose: 20 mg Folic Acid (Folic Acid) 1 mg PO DAILY [facility] Last Admin: 06/24/17 09:43 Dose: 1 mg Potassium Chloride/Dextrose/Sod Cl (Dextrose 5%-1/2ns W/20meq Kcl) 1,000 mls @ 100 mls/hr IV .Q10H [facility] Last Admin: 06/24/17 14:13 Dose: Not Given Acetaminophen (Ofirmev) 1,000 mg in 100 mls @ 200 mls/hr IV Q6HP PRN PRN Reason: PAIN/FEVER > 101 Iron Carb/Multivit/[place]/Folic Acid (Multivitamin W/Minerals) 1 tab PO DAILY [facility] Last Admin: 06/24/17 09:43 Dose: 1 tab Magnesium Hydroxide (Milk Of Magnesia) 30 ml PO DAILYP PRN PRN Reason: Constipation Last Admin: 06/22/17 13:10 Dose: 30 ml Magnesium Oxide (Magnesium Oxide) 400 mg PO BID [facility] Last Admin: 06/24/17 09:43 Dose: 400 mg Mercaptopurine (Mercaptopurine) 50 mg PO QDAY [facility] Last Admin: 06/24/17 09:46 Dose: Not Given Metoprolol Tartrate (Lopressor) 25 mg PO BID [facility] Last Admin: 06/24/17 09:44 Dose: 25 mg Metoprolol Tartrate (Lopressor) 5 mg IV Q1HP PRN PRN Reason: Tachyarrhythmias Morphine Sulfate (Morphine) 2 mg IV Q1HP PRN PRN Reason: Pain Last Admin: 06/23/17 05:35 Dose: 2 mg Naloxone HCl (Narcan) 0.1 mg IV Q2MIN PRN PRN Reason: Opiate Reversal Nitroglycerin (Nitrostat) 0.4 mg SL Q5M PRN PRN Reason: Chest Pain Nystatin (Nystatin) 500,000 units SSW TID [facility] Last Admin: 06/24/17 16:38 Dose: 500,000 units Omeprazole (Prilosec) 20 mg PO QAMAC [facility] Last Admin: 06/24/17 08:35 Dose: 20 mg Ondansetron HCl (Zofran) 4 mg IV Q6HP PRN PRN Reason: Nausea And Vomiting Adalimumab [Humira] (40 Mg Injection) 1 dose SUB-Q QWEEK [facility] Balsalazide Disodium [Colazal] 750 Mg Cap 1 dose PO DAILY [facility] Last Admin: 06/24/17 10:06 Dose: Not Given Travoprost ( Benzalkonium) 0.004% Eye Drops 1 dose OU HS [facility] Last Admin: 06/23/17 21:30 Dose: Not Given Potassium Chloride (Kdur) 30 meq PO CCHS [facility] Last Admin: 06/24/17 14:21 Dose: 30 meq Quetiapine Fumarate (Seroquel) 25 mg PO Q8HP PRN PRN Reason: Agitation Last Admin: 06/22/17 21:39 Dose: 25 mg Sodium Chloride (Saline Flush) 10 ml IV Q8 [facility] Last Admin: 06/24/17 14:23 Dose: Not Given Sodium Chloride (Saline Flush) 10 ml IV Q8 [facility] Last Admin: 06/24/17 14:23 Dose: Not Given Thiamine HCl (Vitamin B1) 100 mg PO QDAY [facility] Last Admin: 06/24/17 09:44 Dose: 100 mg Vitamin D (Vitamin D3) 2,000 unit PO QID [facility] Last Admin: 06/24/17 14:22 Dose: 2,000 unit Warfarin Sodium (Coumadin Per Pharmacy) 1 order PO UD [facility] Medical - PN: A/P (1) Toxic metabolic encephalopathy Status: Acute Current Visit: Yes (2) Fall Status: Acute Current Visit: Yes (3) Nondisplaced type II dens fracture Problem details: Unknown if this is acute or chronic Status: Acute Current Visit: Yes (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 Orthopedic. Patient presents with abnormal CT scan and x-ray of cervical spine after a fall. He has a Dens fracture, unclear if chronic or acute. Hospitalized to obtain MRI of cervical spine. Initially unable to do so due to delirium and encephalopathy. Sensorium now cleared to get MRI. -Continue cervical collar, MRI scheduled for tomorrow, conscious sedation standing by needed. 2. Neurologic/alcohol intoxication. Patient fell while intoxicated by his report. -He was in acute alcohol withdrawal for 2 days, then improved Saturday. Worsened symptoms after lorazepam, suspect part of withdrawal symptoms may have been reaction to BZD's instead. -Subsequent suspected toxic/metabolic encephalopathy, now cleared on Saturday. Attempt to minimize [employer]IVE active medications. -Seroquel for agitation. Monitor on telemetry. He was difficult to arouse , head CT did not show bleeding. 3. GI. History of Crohn's disease. Should now be able to take PO meds GERD. Continue PPI. 4. CODE STATUS: Full code. 5. DVT prophylaxis: Coumadin for history of PE. Bridge with Lovenox, when Coumadin is subtherapeutic. We may need to touch base with his other primary care doctor, to see if he is to remain on Coumadin indefinitely, or if this could be discontinued. He is at high risk for falls, given his history of alcohol abuse. 6. Hematologic. Chronic anemia, likely due to chronic disease. 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 7. Pulmonary. History of PE. On Coumadin. Secretions and rhonchorous breath sounds--resolved Saturday. 8. Cardiovascular. Tachycardia and hypotension from Saturday resolved with IV fluids; received one dose of lasix. 9. Infectious disease. Workup for fever showed normal chest x-ray and urine. He is afebrile today.
[2017-06-24] MEDS: ATORVASTATIN 20 MG TABLET PO SCH (20:42)
[2017-06-24] MEDS: QUEtiapine 25 MG TABLET PO PRN (20:44)
[2017-06-24] MEDS: TRAVOPROST 0.004% OU SCH (20:46)
[2017-06-24] MEDS: EYE OU SCH (20:46)
[2017-06-25] MEDS: IPRATROPIUM/ALBUTEROL 3 ML AMPUL.NEB NEB SCH ×3 (02:01→07:45)
[2017-06-25 06:03] LABS: Basophils # (Auto) 0 K/mcL (0.0-0.3); Basophils % (Auto) 0.7 % (0.0-2.0); Eosinophils # (Auto) 0 K/mcL (0.0-0.7); Eosinophils % (Auto) 1.1 % (0.0-7.0); Granulocytes % (Auto) 46.6 % (38.0-78.0); Lymphocytes # (Auto) 1.5 K/mcL (1.5-4.8); Lymphocytes % (Auto) 37.6 % (15.5-49.0); Mean Cell Volume 103.2 fL (80.0-100.0); Mean Corpuscular HGB Conc 34.4 g/dL (31.0-36.0); Mean Corpuscular Hemoglobin 35.5 pg (26.0-34.0); Monocytes # (Auto) 0.5 K/mcL (0.1-0.9); Platelet Count 234 K/mcL (140-440); RBC 2.34 M/mcL (4.50-5.90); Red Cell Distribution Width 15.7 % (11.5-14.5)
[2017-06-25 06:23] LABS: ALT/SGPT 23 U/l (0-40); Albumin 2.2 gm/dL (3.2-5.2); Albumin/Globulin Ratio 0.7 (1.0-2.3); Alkaline Phosphatase 114 U/L (39-117); Bilirubin,Direct 0.3 mg/dL (0.0-0.3); Blood Urea Nitrogen 11 mg/dl (8-23); Gamma Glutamyl Transpeptidase 66 U/L (8-61); Uric Acid 4.7 mg/dL (2.5-8.0)
[2017-06-25] MEDS: BUDESONIDE 0.5 MG/2 ML AMPUL.NEB NEB SCH ×2 (07:45→20:13)
[2017-06-25] MEDS: DEXTROSE 5%-1/2NS W/20MEQ KCL 1,000 ML IV SCH ×2 (09:32→10:14)
[2017-06-25] MEDS: OMEPRAZOLE 20 MG CAPSULE PO SCH (09:32)
[2017-06-25] MEDS: 0.9 % SODIUM CHLORIDE 10 ML SYRINGE IV SCH ×6 (09:32→21:32)
[2017-06-25] MEDS: POTASSIUM CHLORIDE 10 MEQ TABLET PO SCH ×4 (09:46→21:30)
[2017-06-25] MEDS: ENOXAPARIN 100 MG/ML SYRINGE SQ SCH (09:47)
[2017-06-25] MEDS: FLUDROCORTISONE 0.1 MG TABLET PO SCH ×2 (09:47→21:29)
[2017-06-25] MEDS: FAMOTIDINE/PF 20 MG/2 ML VIAL IV SCH ×2 (09:47→21:31)
[2017-06-25] MEDS: HYDROCODONE/APAP 7.5/325MG TABLET PO PRN (09:47)
[2017-06-25] MEDS: FLUoxetine HCL 20 MG CAPSULE PO SCH (09:48)
[2017-06-25] MEDS: MAGNESIUM OXIDE 400 MG TABLET PO SCH ×2 (09:48→21:31)
[2017-06-25] MEDS: QUEtiapine 25 MG TABLET PO PRN (09:48)
[2017-06-25] MEDS: VITAMIN D3 1,000 UNIT TABLET PO SCH ×4 (09:48→21:30)
[2017-06-25] MEDS: NYSTATIN 500,000 UNITS/5 ML ORAL.SUSP SSW SCH ×3 (09:48→21:31)
[2017-06-25] MEDS: BUDESONIDE 3 MG CAP.XL.24H PO SCH ×3 (09:48→21:32)
[2017-06-25] MEDS: THIAMINE 100 MG TABLET PO SCH (09:48)
[2017-06-25] MEDS: METOPROLOL TARTRATE 25 MG TABLET PO SCH ×2 (09:48→21:30)
[2017-06-25] MEDS: FOLIC ACID 1 MG TABLET PO SCH (09:48)
[2017-06-25] MEDS: FERROUS GLUCONATE 324 MG TABLET PO SCH (09:48)
[2017-06-25] MEDS: MULTIVIT,THER IRON,CA,FA & MIN 1 TABLET PO SCH (09:48)
[2017-06-25] MEDS: BALSALAZIDE DISODIUM 750 MG PO SCH (09:49)
[2017-06-25] MEDS: MERCAPTOPURINE 50 MG TABLET PO SCH (09:49)
[2017-06-25] MEDS ORDERED: fentaNYL 100 MCG/2 ML VIAL IV ONE (13:00)
[2017-06-25] MEDS ORDERED: MIDAZOLAM 2 MG/2 ML VIAL IV ONE (13:00)
[2017-06-25] MEDS ORDERED: WARFARIN 5 MG TABLET PO ONE (14:00)
--- NOTE | 2017-06-25 20:04 | Internal Med Progress Note ---
Medical - PN: Subj Patient information: Note initiated : 06/25/17 at 8:02 pm Service Date, if different from initiated Date: [] Patient: Christian Andrews 71 y/o M admitted on 06/19/17 for Neck Pain, Full Body Pain/Nondisplaced II Dens Fx. Chief Complaint: f/u Dens fracture Interval history: June 18, 2017: History of present illness: Mr. Andrews is a 71 year old on chronic AC therapy, and probable chronic alcohol abuse. He apparently took a bad fall day before yesterday, and presented to the emergency room for evaluation. His current review of his x- rays showed possible dens fracture, so he was brought back today for more x- rays. CT scan confirms a dens fracture, but could not say for sure if it was chronic. Radiologist recommended that the patient be watched overnight, and undergo MRI in the morning, to decide acuity. The patient admits he had had about 6 drinks the evening of the fall. It was a ground-level fall onto concrete. He is not entirely sure if he hit his head, but it would appear that he did. He has had significant pain since then, including pain in his head and face, neck, bilateral hands, left leg. Prior to his fall, he said he was feeling fine. He had not been having fever chills, headaches or dizziness, new eye or ear symptoms, sore throat or cough, chest pain or palpitations, shortness of breath, abdominal pain, nausea or vomiting, diarrhea or constipation or dysuria. Now he says his vision may be a little blurry. His main complaint is just of generalized pain. He lives alone. He says he has a niece and an uncle here in town. He says they do know that he had a bad fall. June 19: Overnight the patient became more confused. Because of his known alcohol abuse , he was monitored with the [facility] protocol. He did appear to have fairly acute alcohol withdrawal symptoms overnight, with hallucinations, etc. This morning he was to agitated and confused to cooperate with much of anything, and the MRI techs were unable to get him to be still enough to do an MRI. He remains in a cervical collar. This morning, he will open his eyes briefly and try to answer questions, and follow very simple commands, but otherwise speech is not making a lot of sense he was moved to a watch room, due to his high risk for climbing out of bed and pulling lines. As it became more obvious that he was likely in full-blown alcohol withdrawal, he was transferred to telemetry for closer monitoring. He is still not calm enough to do anymore neck or brain scanning. He may require follow-up head CT at some point, to rule out bleeding, although his admission head CT looks fine. Does not report any neck pain today, but his history is unreliable. June 20: The patient remained calm, did not require any more Ativan overnight. He slept most of the night. He snores very loudly, and has a great deal of upper airway noise, but has maintained his O2 saturations fine. This morning when he awakens , he was complaining of a bit of discomfort, so was given some IV morphine. He still is quite confused, and speech is minimal. He is able to say "no" when asked about pain or shortness of breath. Physical therapy was able to get him to follow some commands and move all extremities. He is still not awake enough to give consent for an MRI. Because of his ongoing altered mental status, we did do a head CT today, which shows no signs of bleeding. Nurses are concerned because of his continued loud upper airway noise. They are concerned that his cervical collar might be causing some kind of problem. Unfortunately, the patient does not have contacts or a POA listed. He does have a niece who works here, but has not given permission for us to discuss his care with her. Afternoon, he is a bit tachycardic. The nurses were unable to give him his oral medications this morning, due to his somnolence. Blood pressures are running low, in the 90s. June 21: This morning, the patient is a little more arousable. He still seems a bit groggy, but was more able to answer questions. He was also able to state that he wanted his POA to be his friend, Mayito Cailey. He tells us that he has one coronary stent, and bilateral hip prostheses. We have requested records of those, to see if these will prevent him from having his cervical MRI. He denies significant pain at this time. He denies chest pain or palpitations, shortness of breath, abdominal pain. He remains in a cervical collar. Today is the first day since the night of admission where he seems to be answering most questions appropriately. BiPAP was placed yesterday, and seemed to make his very loud upper airway noises resolved, and his tachypnea resolved. This morning we remove the BiPAP mask, and he was able to maintain his O2 saturations while talking with us, just with oxygen by nasal cannula. He has not been able to get oral meds up until now, due to his obtunded state. He does have an NG tube in place, and we were discussing with family which meds could go down the tube. Hopefully, he will be alert enough this afternoon that he can take things orally. Pro time was elevated on admission, so Coumadin was held. Now INR is low, so he is being bridged with Lovenox, until INR is greater than 2.0, regarding his PE. I do not have information however on when the PE was, and how long he was to stay on Coumadin. June 22: Yesterday afternoon and attempt was made to do the MRI of his cervical spine. He had been lucid and cooperative prior to that. He received 2 mg of lorazepam which have been ordered for anxiety purposes. He became confused and uncooperative in the MRI scanner. A further 4 mg of lorazepam was given, was unable to provide sedation. Throughout the afternoon yesterday, displayed many of the same withdrawal phenomenon that he had had previously including hallucinations. He alternated between sleeping and hallucinating. This morning, continued to have somnolence with periods of hallucinations. Avoiding benzodiazepines, suspect he may have had paradoxical reaction. Seroquel did help. Has been sleeping most of the day. June 23: Lot of upper airway, rhonchorous sounds in's morning, unable to cough and clear. Persist despite deep suctioning. Received a dose of furosemide, that improved things. We'll considering starting tube feeding, with abdominal film to check NGT, it appears pimpled back. When they tried to replace it was unsuccessful, he developed epistaxis and tube was removed. This afternoon has been more alert at times mumbling and appropriate responses. He did receive morphine last night for pain. This afternoon, when I asked if his neck hurt he said yes. He apparently was able to provide some history that he'd had a neck injury in the past and had MRI, but we do not know where that may have occurred. June 24 More awake and alert today, by the end of afternoon sitting up in the chair, getting annoyed still being in the hospital. Is complaining of neck pain which is ongoing. No focal neurologic deficit. Told his nurse she has wants to go home and have his Ron Stone. Arrangements for MRI of the cervical spine are made for tomorrow. Conscious sedation will be on hand if needed. June 25 Awake and alert. Wanting to leave the hospital, though realizes he needs to have the MRI done. Was able to get the MRI performed, did not require conscious sedation. There is some motion artifact from his breathing. Reviewing the images with the radiologist in person, does not appear to be evidence of edema or other findings to suggest acute fracture. Patient has been working with therapies, is fairly weak, likely will require some rehabilitation. - Constitutional Vitals: Vital Signs Temp Pulse Resp BP Pulse Ox 99 F 72 16 126/71 93 06/25/17 19:39 06/25/17 13:25 06/25/17 19:39 06/25/17 19:39 06/25/17 19:39 Period Temp Pulse Resp BP Sys/Phillips Pulse Ox Last 24 Hr 97.6 F-99.3 F 72-94 -18 79-134/30-81 91-98 Intake and Output 06/25/17 06/25/17 06/25/17 05:59 13:59 21:59 Intake Total 240 / 240 1120 / 1120 300 / 300 Output Total 975 / 975 1600 / 1600 Balance -735 / -735 1120 / 1120 -1300 / -1300 Weight 204 lb 6.4 oz Patient Weight 06/26/17 05:59 Weight 204 lb 6.4 oz Intake & Output: Intake & Output 06/25/17 06/25/17 06/25/17 05:59 13:59 21:59 Intake Total 240 / 240 1120 / 1120 300 / 300 Output Total 975 / 975 1600 / 1600 Balance -735 / -735 1120 / 1120 -1300 / -1300 Weight 204 lb 6.4 oz Intake: IV 1000 / 1000 Dextrose 5%-1/2Ns W/20Meq KCl 1 1000 / 1000 ,000 ml @ 100 mls/hr IV .Q10H CLEMENTE Rx#:[id number] Oral 240 / 240 120 / 120 300 / 300 Output: Urine Catheter Amount 975 / 975 1400 / 1400 Void Amount 200 / 200 Other: Meal Breakfast Percent of Meal Consumed 50% Exam: Gen: In NAD Neck: In collar Chest: Unlabored CV: Regular Abd: Soft Neuro: Moves all extremities Medical - PN: Obj Da - Labs CBC & Chem 7: 06/25/17 03:30 06/25/17 03:30 Labs: Abnormal Lab Results 06/25/17 06/25/17 06/25/17 03:30 03:30 03:30 WBC 3.9 L RBC 2.34 L Hgb 8.3 L Hct 24.1 L MCV 103.2 H MCH 35.5 H RDW 15.7 H MPV 7.1 L [place] % (Auto) 14.0 H Lymph # (Auto) PT 25.9 H INR 2.3 H Sodium BUN Creatinine Calcium 7.9 L Total Bilirubin Direct Bilirubin GGT 66 H Lactate Dehydrogenase 254 H Total Protein 5.4 L Albumin 2.2 L Albumin/Globulin Ratio 0.7 L 06/24/17 06/24/17 06/24/17 03:49 03:49 03:49 WBC RBC 2.42 L Hgb 8.6 L Hct 25.0 L MCV 103.6 H MCH 35.4 H RDW 15.5 H MPV 7.1 L [place] % (Auto) 13.2 H Lymph # (Auto) PT 33.5 H INR 3.1 H Sodium BUN Creatinine Calcium 8.1 L Total Bilirubin 1.3 H Direct Bilirubin 0.5 H GGT Lactate Dehydrogenase 264 H Total Protein 5.3 L Albumin 2.2 L Albumin/Globulin Ratio 0.7 L 06/23/17 06/23/17 06/23/17 04:00 04:00 04:00 WBC 4.2 L RBC 2.44 L Hgb 8.8 L Hct 25.3 L MCV 103.8 H MCH 35.9 H RDW 15.5 H MPV 7.1 L [place] % (Auto) 15.2 H Lymph # (Auto) 1.4 L PT 30.6 H INR 2.8 H Sodium 132 L BUN 4 L Creatinine 0.5 L Calcium 7.7 L Total Bilirubin Direct Bilirubin GGT Lactate Dehydrogenase 277 H Total Protein 5.2 L Albumin 2.4 L Albumin/Globulin Ratio 0.9 L Meds: Medications Acetaminophen (Tylenol) 650 mg PO Q6HP PRN PRN Reason: PAIN/FEVER > 101 Last Admin: 06/21/17 12:00 Dose: 650 mg Hydrocodone Bitart/Acetaminophen ([place] 7.5/325mg) 1 tab PO Q6H PRN PRN Reason: pain Last Admin: 06/25/17 09:47 Dose: 1 tab Albuterol Sulfate (Ventolin) 2.5 mg NEB Q2HP PRN PRN Reason: Shortness Of Breath Atorvastatin Calcium (Lipitor) 20 mg PO HS [facility] Last Admin: 06/24/17 20:42 Dose: 20 mg Budesonide (Pulmicort) 0.5 mg NEB Q12 [facility] Last Admin: 06/25/17 07:45 Dose: 0.5 mg Budesonide (Entecort) 3 mg PO TID [facility] Last Admin: 06/25/17 16:41 Dose: Not Given Famotidine (Pepcid) 20 mg IV Q12 [facility] Last Admin: 06/25/17 09:47 Dose: 20 mg Ferrous Gluconate (Fergon) 324 mg PO DAILY [facility] Last Admin: 06/25/17 09:48 Dose: 324 mg Fludrocortisone Acetate (Florinef) 0.1 mg PO BID [facility] Last Admin: 06/25/17 09:47 Dose: 0.1 mg Fluoxetine HCl (Prozac) 20 mg PO DAILY [facility] Last Admin: 06/25/17 09:48 Dose: 20 mg Folic Acid (Folic Acid) 1 mg PO DAILY [facility] Last Admin: 06/25/17 09:48 Dose: 1 mg Acetaminophen (Ofirmev) 1,000 mg in 100 mls @ 200 mls/hr IV Q6HP PRN PRN Reason: PAIN/FEVER > 101 Iron Carb/Multivit/Technician/Folic Acid (Multivitamin W/Minerals) 1 tab PO DAILY [facility] Last Admin: 06/25/17 09:48 Dose: 1 tab Magnesium Hydroxide (Milk Of Magnesia) 30 ml PO DAILYP PRN PRN Reason: Constipation Last Admin: 06/22/17 13:10 Dose: 30 ml Magnesium Oxide (Magnesium Oxide) 400 mg PO BID [facility] Last Admin: 06/25/17 09:48 Dose: 400 mg Mercaptopurine (Mercaptopurine) 50 mg PO QDAY [facility] Last Admin: 06/25/17 09:49 Dose: Not Given Metoprolol Tartrate (Lopressor) 25 mg PO BID [facility] Last Admin: 06/25/17 09:48 Dose: 25 mg Metoprolol Tartrate (Lopressor) 5 mg IV Q1HP PRN PRN Reason: Tachyarrhythmias Morphine Sulfate (Morphine) 2 mg IV Q1HP PRN PRN Reason: Pain Last Admin: 06/23/17 05:35 Dose: 2 mg Naloxone HCl (Narcan) 0.1 mg IV Q2MIN PRN PRN Reason: Opiate Reversal Nitroglycerin (Nitrostat) 0.4 mg SL Q5M PRN PRN Reason: Chest Pain Nystatin (Nystatin) 500,000 units SSW TID [facility] Last Admin: 06/25/17 18:23 Dose: Not Given Omeprazole (Prilosec) 20 mg PO QAMAC [facility] Last Admin: 06/25/17 09:32 Dose: 20 mg Ondansetron HCl (Zofran) 4 mg IV Q6HP PRN PRN Reason: Nausea And Vomiting Adalimumab [Humira] (40 Mg Injection) 1 dose SUB-Q QWEEK [facility] Balsalazide Disodium [Colazal] 750 Mg Cap 1 dose PO DAILY [facility] Last Admin: 06/25/17 09:49 Dose: Not Given Travoprost ( Benzalkonium) 0.004% Eye Drops 1 dose OU HS [facility] Last Admin: 06/24/17 20:46 Dose: Not Given Potassium Chloride (Kdur) 30 meq PO CCHS [facility] Last Admin: 06/25/17 18:24 Dose: Not Given Quetiapine Fumarate (Seroquel) 25 mg PO Q8HP PRN PRN Reason: Agitation Last Admin: 06/25/17 09:48 Dose: 25 mg Sodium Chloride (Saline Flush) 10 ml IV Q8 [facility] Last Admin: 06/25/17 16:41 Dose: 10 ml Sodium Chloride (Saline Flush) 10 ml IV Q8 [facility] Last Admin: 06/25/17 16:41 Dose: 10 ml Thiamine HCl (Vitamin B1) 100 mg PO QDAY [facility] Last Admin: 06/25/17 09:48 Dose: 100 mg Vitamin D (Vitamin D3) 2,000 unit PO QID [facility] Last Admin: 06/25/17 18:23 Dose: Not Given Warfarin Sodium (Coumadin Per Pharmacy) 1 order PO UD [facility] - Impressions Cervical MRI reviewed with Dr. White in the radiology reading room. Images with some motion artifact, but no evidence of edema signal on STIR images to suggest acute fracture. No hypermotility on flexion and extension views of the neck with plain radiograph. Medical - PN: A/P - Time Spent With Patient Total time spent is greater than 50% in coordination of care (as documented) at patient's floor/unit and/or counseling patient: Greater than 35 minutes (1) Toxic metabolic encephalopathy Status: Resolved Current Visit: Yes (2) Fall Status: Acute Current Visit: Yes (3) Nondisplaced type II dens fracture Problem details: Chronic, based upon MRI Status: Chronic Current Visit: Yes (4) senior care current use of anticoagulant Status: Chronic Current Visit: Yes (5) Crohn's disease Status: Chronic Current Visit: Yes - Narrative A/P Narrative: 1. Orthopedic. Patient presents with abnormal CT scan and x-ray of cervical spine after a fall. He has a Dens fracture, unclear if chronic or acute. Hospitalized to obtain MRI of cervical spine. Initially unable to do so due to delirium and encephalopathy. Sensorium now cleared to get MRI. MRI today without edema signal on stirring images, consistent with chronic fracture. Discussed the case with orthospine, he reviewed images, agrees this appears to be a chronic lesion, has healed on its own, does not need further therapy. -Discontinue cervical collar 2. Neurologic/alcohol intoxication. Patient fell while intoxicated by his report. -He was in acute alcohol withdrawal for 2 days, then improved Saturday. Worsened symptoms after lorazepam, suspect part of withdrawal symptoms may have been reaction to BZD's instead. -Subsequent suspected toxic/metabolic encephalopathy, now cleared on Saturday. Attempt to minimize [employer] active medications. -Seroquel for agitation. He was difficult to arouse , head CT did not show bleeding. 3. GI. History of Crohn's disease. Should now be able to take PO meds GERD. Continue PPI. 4. CODE STATUS: Full code. 5. DVT prophylaxis: Coumadin for history of PE. Bridge with Lovenox, when Coumadin is subtherapeutic. We may need to touch base with his other primary care doctor, to see if he is to remain on Coumadin indefinitely, or if this could be discontinued. He is at high risk for falls, given his history of alcohol abuse. 6. Hematologic. Chronic anemia, likely due to chronic disease. 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 7. Pulmonary. History of PE. On Coumadin. Secretions and rhonchorous breath sounds--resolved Saturday. 8. Cardiovascular. Tachycardia and hypotension from Saturday resolved with IV fluids; received one dose of lasix. 9. Infectious disease. Workup for fever showed normal chest x-ray and urine. He remains afebrile today. Disposition: Patient can be safely discharged to rehabilitation.
[2017-06-25] MEDS: ALBUTEROL SULFATE 2.5 MG/3 ML NEBULIZER NEB PRN (20:13)
[2017-06-25] MEDS: ATORVASTATIN 20 MG TABLET PO SCH (21:31)
[2017-06-25] MEDS: TRAVOPROST 0.004% OU SCH (21:32)
[2017-06-25] MEDS: EYE OU SCH (21:32)
[2017-06-26 06:35] LABS: Basophils # (Auto) 0 K/mcL (0.0-0.3); Basophils % (Auto) 0.9 % (0.0-2.0); Eosinophils # (Auto) 0.1 K/mcL (0.0-0.7); Eosinophils % (Auto) 1.6 % (0.0-7.0); Granulocytes % (Auto) 36.9 % (38.0-78.0); Lymphocytes # (Auto) 1.6 K/mcL (1.5-4.8); Lymphocytes % (Auto) 44.2 % (15.5-49.0); Mean Cell Volume 103.9 fL (80.0-100.0); Mean Corpuscular HGB Conc 33.9 g/dL (31.0-36.0); Mean Corpuscular Hemoglobin 35.2 pg (26.0-34.0); Monocytes # (Auto) 0.6 K/mcL (0.1-0.9); Monocytes % (Auto) 16.4 % (1.0-12.0); Platelet Count 285 K/mcL (140-440); RBC 2.35 M/mcL (4.50-5.90); Red Cell Distribution Width 15.6 % (11.5-14.5)
[2017-06-26 06:55] LABS: ALT/SGPT 22 U/l (0-40); Albumin 2.1 gm/dL (3.2-5.2); Albumin/Globulin Ratio 0.6 (1.0-2.3); Alkaline Phosphatase 125 U/L (39-117); Bilirubin,Direct 0.3 mg/dL (0.0-0.3); Blood Urea Nitrogen 10 mg/dl (8-23); Gamma Glutamyl Transpeptidase 70 U/L (8-61); Magnesium 1.8 mg/dL (1.6-2.5); Uric Acid 4.8 mg/dL (2.5-8.0)
[2017-06-26] MEDS: OMEPRAZOLE 20 MG CAPSULE PO SCH (07:49)
[2017-06-26] MEDS: 0.9 % SODIUM CHLORIDE 10 ML SYRINGE IV SCH ×2 (07:50→07:51)
[2017-06-26] MEDS ORDERED: ADALIMUMAB 40 MG SUB-Q SCH (09:00)
[2017-06-26] MEDS: FOLIC ACID 1 MG TABLET PO SCH (09:22)
[2017-06-26] MEDS: MAGNESIUM OXIDE 400 MG TABLET PO SCH (09:22)
[2017-06-26] MEDS: FLUDROCORTISONE 0.1 MG TABLET PO SCH (09:22)
[2017-06-26] MEDS: POTASSIUM CHLORIDE 10 MEQ TABLET PO SCH ×2 (09:22→12:19)
[2017-06-26] MEDS: FLUoxetine HCL 20 MG CAPSULE PO SCH (09:22)
[2017-06-26] MEDS: METOPROLOL TARTRATE 25 MG TABLET PO SCH (09:23)
[2017-06-26] MEDS: THIAMINE 100 MG TABLET PO SCH (09:23)
[2017-06-26] MEDS: VITAMIN D3 1,000 UNIT TABLET PO SCH ×2 (09:23→12:19)
[2017-06-26] MEDS: FERROUS GLUCONATE 324 MG TABLET PO SCH (09:23)
[2017-06-26] MEDS: NYSTATIN 500,000 UNITS/5 ML ORAL.SUSP SSW SCH (09:23)
[2017-06-26] MEDS: MULTIVIT,THER IRON,CA,FA & MIN 1 TABLET PO SCH (09:23)
[2017-06-26] MEDS: BALSALAZIDE DISODIUM 750 MG PO SCH (09:25)
[2017-06-26] MEDS: MERCAPTOPURINE 50 MG TABLET PO SCH (09:26)
[2017-06-26] MEDS: BUDESONIDE 0.5 MG/2 ML AMPUL.NEB NEB SCH (09:31)
[2017-06-26] MEDS: ALBUTEROL SULFATE 2.5 MG/3 ML NEBULIZER NEB PRN (09:31)
[2017-06-26] MEDS: FAMOTIDINE/PF 20 MG/2 ML VIAL IV SCH (09:34)
[2017-06-26] MEDS: BUDESONIDE 3 MG CAP.XL.24H PO SCH (09:35)
--- NOTE | 2017-06-26 12:15 | Discharge Summary ---
Medical - DS: Prov Patient information: Note initiated : 06/26/17 at 12:08 pm Service Date, if different from initiated Date: [] Patient: Christian Andrews 71 y/o M admitted on 06/19/17 for Neck Pain, Full Body Pain/Nondisplaced II Dens Fx. Chief Complaint: [] Date of admission: 06/19/17 09:00 Discharge date: 06/26/17 Primary care physician: Dinesh Mayberry Admitting clinician: Fanny Chen Consults: 06/20/17 14:55 Consult to Physician [CONS] Routine Comment: Consulting Provider: David Proctor Reason For Exam: Physician to Consult Discharging clinician: Celeste Lane Medical - DS: Meds - Discharge Medications Prescriptions: Hydrocodone/APAP 7.5/325Mg [[place] 7.5/325Mg] 1 tab PO Q6H PRN #30 tab PRN Reason: pain Active and Home Medications: Home Medications Ascorbic Acid [Ascorbic Acid with Rh] 500 mg PO QDAY 04/15/15 [History Confirmed 06/19/17 Last Taken 06/17/17 17:00] Aspirin [Ecotrin] 81 mg PO QDAY 04/15/15 [History Confirmed 06/19/17 Last Taken 06/17/17 21:30] Cholecalciferol (Vitamin D3) [Vitamin D3] 2,000 unit PO QIDP 04/15/15 [History Confirmed 06/19/17 Last Taken 06/18/17 10:00] Ipratropium/Albuterol Sulfate [Combivent] 2 puff INH QID PRN 04/15/15 [History Confirmed 06/19/17 Last Taken 06/04/17 12:00] Nitroglycerin [Nitrostat] 0.4 mg SL Q5M PRN 04/15/15 [History Confirmed Last Taken Unknown] Saw [place] 160 mg PO QDAY 04/15/15 [History Confirmed 06/19/17 Last Taken 06/25 10:00] multivitamin with minerals capsule 1 tab-cap PO QDAY cap 11/14/15 [History Confirmed 06/19/17 Last Taken 06/18/17 10:00] travoprost (benzalkonium) 0.004 % eye drops 1 drp OPHTHALMIC HS #5 ml 05/01/16 [ Rx Confirmed 06/19/17 Last Taken 06/17/17 21:00] ferrous gluconate 324 mg (38 mg iron) tablet 324 mg PO QDAY #100 tab 05/10/16 [ Rx Confirmed 06/19/17 Last Taken 06/18/17 10:00] guaifenesin 400 mg tablet 400 mg PO Q4H PRN #30 tab 09/20/16 [Rx Confirmed 06/19 Last Taken Unknown] atorvastatin 40 mg tablet 20 mg PO QDAY #30 tab 09/26/16 [Rx Confirmed 06/19/17 Last Taken 06/18/17 10:00] albuterol sulfate HFA 90 mcg/actuation aerosol inhaler 2 puff INHALATION Q4HP PRN #8.5 g 12/04/16 [Rx Confirmed 06/19/17 Last Taken 04/08/17] magnesium oxide 400 mg tablet 400 mg PO BID #60 tab 12/10/16 [Rx Confirmed 06/19 Last Taken 06/18/17 10:00] budesonide-formoterol HFA 160 mcg-4.5 mcg/actuation aerosol inhaler 2 puff INHALATION BID #10.2 g 01/14/17 [Rx Confirmed 06/19/17 Last Taken 06/18/17 10:00 ] balsalazide 750 mg capsule 1 cap PO DAILY 30 Days 02/15/17 [History Confirmed Last Taken 06/18/17 10:00] docusate sodium 100 mg capsule 100 mg PO BID PRN 05/15/17 [History Confirmed 07/26 Last Taken 06/18/17 10:00] adalimumab 40 mg/0.8 mL subcutaneous syringe kit 40 mg SUB-Q QWEEK ml 05/20/17 [History Confirmed 06/19/17 Last Taken 06/15/17 12:00] fludrocortisone 0.1 mg tablet 0.1 mg PO BID #60 tab 05/20/17 [Rx Confirmed 06/19 Last Taken 06/17/17 17:00] hydrocodone 7.5 mg-acetaminophen 325 mg tablet 1 tab PO Q6H PRN #100 tab [Rx Confirmed 06/19/17 Last Taken 06/17/17 21:00] metoprolol tartrate 25 mg tablet 25 mg PO BID #60 tab 05/28/17 [Rx Confirmed 07/26 Last Taken 06/18/17 10:00] budesonide DR - ER 3 mg capsule,delayed,extended release 3 mg PO TID #90 each [Rx Confirmed 06/19/17 Last Taken 06/18/17 10:00] fluoxetine 20 mg capsule 20 mg PO DAILY #30 cap 06/13/17 [Rx Confirmed 06/19/17 Last Taken 06/17/17 21:00] mercaptopurine 50 mg tablet 50 mg PO QDAY #30 tab 06/13/17 [Rx Confirmed Last Taken Unknown] omeprazole 20 mg capsule,delayed release 20 mg PO QDAY #30 cap 06/13/17 [Rx Confirmed 06/19/17 Last Taken 06/18/17 10:00] potassium chloride ER 20 mEq tablet,extended release 30 meq PO QID #180 tab 02/23 [Rx Confirmed 06/19/17 Last Taken 06/18/17 10:00] warfarin 5 mg tablet 10 mg PO .COMPLEX #20 tab 06/18/17 [Rx Confirmed 06/19/17 Last Taken 06/18/17 12:00] Medical - DS: Hosp Hospital course: Mr. Andrews is a 71 year old male on chronic warfarin therapy, and chronic alcohol use, who had a fall on the sidewalk on the day prior to this presentation (06/17). He was seen in the emergency department. He been consuming alcohol and was intoxicated at that time. His facial CT is read as negative, however on further review, he had evidence of dens fracture, most consistent with chronic. He was called back by radiology on 06/18/2017 and had plain films again showing dens fracture, possible chronic, recommendation was for MRI to further evaluate. That was not immediately available by that point in the afternoon, and he was placed in a cervical collar and hospitalized on observation to obtain MRI the following day. Overnight that night, he became confused and was treated per [facility] protocol for alcohol withdrawal. He remained in a cervical collar. This continued into the next day. By the fourth hospital day he was clear enough to consent for MRI, received lorazepam for anxiety and claustrophobia prior to going to MRI, became more agitated. Receive further dose of lorazepam with worsening behavior. MRI is unable to be obtained. During that evening, the patient was hallucinating and agitated. Over the next 2 hospital days he was encephalopathic. Behaviors were treated with Seroquel and benzodiazepines were avoided. It is suspected he was having paradoxical reaction to lorazepam. By Saturday, June 24, the patient was clear, taking good by mouth intake. MRI could not be scheduled that day, on Saturday he underwent MRI, without evidence of acute fracture, no edema or other signals on STIR sequences to suggest recent acuity. I reviewed the study with Dr. Hanks. Also discussed with ortho-spine, who reviewed the images and concurred that this appeared to be a chronic fracture that it healed in the past, no further intervention was needed. Patient did work with physical therapy. He became more debilitated, both from his initial fall as well as his hospitalization. Arrangements were made for short-term rehabilitation at [facility], he had been there previously after total hip replacement back in April. He was seen by wound care for his abrasions and skin tears from his original fall, they were treated topically. Benzodiazepine should be avoided in the future, specifically lorazepam to which he appeared to have a paradoxical reaction with delirium. Discharge diagnosis: Chronic Dens fracture Secondary discharge diagnosis: Ground level fall the day prior to current hospitalization Alcohol withdrawal Toxic-metabolic encephalopathy Delirium from lorazepam Crohn's disease, stable History of PE, on chronic warfarin Reason for admission: Dens fracture noted on imaging Pertinent studies/significant findings: CT of face 06/17/2017 IMPRESSION: No evidence of facial fracture. Small hemorrhagic contusion with associated edema in the subcutaneous soft tissues the left-sided perizygomatic region Nondisplaced transverse fracture through the dens base is more likely chronic than acute. There is no definite edema in this region. On the previous MRI, there was moderate inflammatory change in the peridens region with mild erosion of the dens and intramedullary cystic changes, but no definite fracture. Suggest : Repeat cervical MRI to determine the presence of both intramedullary and paraspinous edema which may indicate an acute fracture sustained from recent trauma. If there is no intramedullary edema then the fracture is assumed to be chronic. If this is the case, then suggest carefully performed lateral flexion and extension x-rays to evaluate stability. XR C-Spine 06/18/2017 IMPRESSION: Transverse type II nondisplaced fracture of the dens base - almost certainly chronic. There is no motion of the dens fragment between flexion and extension to suggest instability. Cervical MRI recommended to determine acuity MR Cervical Spine 06/25/[address] Hanks, no edema or acute findings on STIR imaging, consistent with chronic Dens fracture. - Time Spent with Patient Total time spent providing and/or coordinating discharge services: Greater than 30 minutes Medical - DS: Exam - Constitutional Vitals: Vital Signs Temp Pulse Resp BP Pulse Ox 06/26/17 09:35 88 18 06/26/17 09:05 143/86 06/26/17 08:02 143/86 06/26/17 07:30 18 06/26/17 04:05 140/73 96 06/26/17 04:04 97.7 F 16 140/73 95 06/26/17 00:10 97.6 F 16 136/68 93 06/25/17 20:14 67 18 98 06/25/17 19:39 99 F 16 126/71 93 06/25/17 18:56 91 06/25/17 13:25 72 16 130/66 98 06/25/17 13:20 76 16 129/65 96 06/25/17 13:15 78 16 134/62 98 06/25/17 13:10 73 16 120/54 97 06/25/17 13:05 79 16 122/60 97 06/25/17 13:00 74 16 112/67 96 06/25/17 12:55 80 16 118/65 95 Intake and Output 06/25/17 06/26/17 06/26/17 21:59 05:59 13:59 Intake Total 300 / 300 150 / 150 420 / 420 Output Total 1750 / 1750 700 / 700 576 / 576 Balance -1450 / -1450 -550 / -550 -156 / -156 Intake: Oral 300 / 300 150 / 150 420 / 420 Output: Urine Catheter Amount 1400 / 1400 Void Amount 350 / 350 700 / 700 575 / 575 # of times incontinent of urine Other: Meal Breakfast Percent of Meal Consumed 50% Feeding Ability Assist with Tray Set Up Weight 204 lb 6.4 oz - Other Additional findings: General: Laying in bed, no acute distress, awake, alert, does not remember much from over the weekend. Chest: Clear, good respiratory effort Cardiovascular: Regular, no edema Abdomen: Soft, nontender, active bowel sounds Skin: Ecchymoses on the left side of the face, left upper and lower extremities. A few skin tears dressed on the left lower extremity. Neuro: Awake, alert, oriented to self, situation, location. Agreeable to stay in rehabilitation. No hallucinations, no tremor. Medical - DS: Data Labs on day of discharge: Labs from last 24 hours 06/26/17 06/26/17 06/26/17 03:55 03:55 03:55 WBC 3.7 L RBC 2.35 L Hgb 8.3 L Hct 24.5 L MCV 103.9 H MCH 35.2 H MCHC 33.9 RDW 15.6 H Plt Count 285 MPV 6.7 L Gran % 36.9 L Lymph % (Auto) 44.2 [place] % (Auto) 16.4 H Eos % (Auto) 1.6 Baso % (Auto) 0.9 Gran # 1.4 L Lymph # (Auto) 1.6 [place] # (Auto) 0.6 Eos # (Auto) 0.1 Baso # (Auto) 0 PT 19.2 H INR 1.6 H Sodium 140 Potassium 4.1 Chloride 104 Carbon Dioxide 25 Anion Gap 11.0 BUN 10 Creatinine 0.7 GFR Calculation 96 Glucose 67 L Uric Acid 4.8 Calcium 8.1 L Phosphorus 3.7 Magnesium 1.8 Total Bilirubin 0.9 Direct Bilirubin 0.3 GGT 70 H AST 25 ALT 22 Alkaline Phosphatase 125 H Lactate Dehydrogenase 240 Total Protein 5.4 L Albumin 2.1 L Globulin 3.3 Albumin/Globulin Ratio 0.6 L Triglycerides 80 - Impressions See above under studies. 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
[2017-06-26] MEDS: ACETAMINOPHEN 325 MG TABLET PO PRN (12:18)
[2017-06-26] MEDS ORDERED: WARFARIN 7.5 MG TABLET PO ONE (14:00)
--- NOTE | 2017-06-28 08:22 | Magnetic Resonance Report ---
CLINICAL INFORMATION: Trauma COMPARISON: 10/19/2011 cervical spine MRI. TECHNIQUE: Sagittal T2, sagittal T1 FLAIR, sagittal STIR and axial T2 images were acquired. FINDINGS: Exam is suboptimal due to motion artifact. It is considered diagnostic, however. Transverse fracture through the dens base is vaguely visualized. There is no edema within the dens or C2 vertebral body surrounding this region, thus the fracture should be chronic. There is moderate peridens fibrosis, although noted on previous studies, with partial circumferential erosion of the dens that particularly posteriorly. Hemangiomas of the C2 vertebral body and dens are unchanged. The entire cervical spine, including this region, is anatomically aligned. No soft tissue abnormality. Cervical cord is normal in contour and caliber without evidence of hemorrhage or edema. At C2-3, there is bilateral uncovertebral spurs and facet hypertrophy resulting in moderate bilateral lateral recess narrowing possible impingement of the exiting C3 nerve roots. At C3-4, there is partial fusion across the posterior disc space. Moderate bilateral lateral recess/IV foraminal narrowing due to marginal spurring. At C4-5, mild broad disc spur complex results in severe bilateral lateral recess/ IV foraminal narrowing impinging the exiting C5 nerve roots. There is minimal central canal narrowing. At C5-6, there is moderate bilateral lateral recess narrowing and uncovertebral spur with impingement of the exiting C6 nerve roots. At C6-7, a large broad disc spur complex results in moderate central canal and severe bilateral lateral recess/ IV foraminal narrowing impinging the exiting C7 nerve roots. At C7-T1, the disc level is normal IMPRESSION: 1. Transverse fracture line through the dens base is likely chronic. There is no definite intramedullary edema within the dens or C2 vertebral body which is normally present in an acute fracture. Alignment is anatomic both at C1-2 and the remainder of the cervical spine. 2. Multilevel degenerative change - poorly visualized due to motion artifact. It has only marginally progressed from the 2012 comparison MRI Interpreted and Authenticated by: Hira Hanks 06/28/17
== END 2017-06-26 13:33 | DRG 551 ==
LOC: MEDSUR 15:52 → ED 15:52 → MEDSUR 21:03 → ICU 06-19 19:13
PROVIDERS: ADMIT Internal Medicine; ATTEND Internal Medicine

== ENCOUNTER 2018-02-09 10:55 | Observation (INO) ==
[2018-02-09] MEDS ORDERED: IOPAMIDOL 100 ML BOTTLE IV ONE (10:56)
[2018-02-09] MEDS ORDERED: LACTATED RINGERS 1,000 ML IV ONE ×2 (11:13→14:16)
--- NOTE | 2018-02-09 11:16 | Emergency Department Note ---
Fall HPI - General Chief Complaint: Fall Stated Complaint: Fall/Weakness Time Seen by Provider: 02/09/18 11:12 Source: patient Mode of arrival: EMS - History of Present Illness HPI Narrative: This patient says he is walking from one room to another last night and fell down. For some reason he was unable to get up and laid there all night until someone discovered him this morning and called an ambulance. This patient has a history of alcohol abuse. Says he has not been drinking for the last 10 days. It is completely unclear why he fell. He fell a number of months ago and broke his neck. He always has neck pain and continues to have some neck pain and slight headache. He has multiple bruises. He is on Plavix. - Related Data Home Medications Medication Instructions Recorded Confirmed Ascorbic Acid [Ascorbic Acid with 500 mg PO QDAY 04/15/15 02/07/18 Rh] Aspirin [Ecotrin] 81 mg PO QDAY 04/15/15 02/07/18 Cholecalciferol (Vitamin D3) 2,000 unit PO QIDP 04/15/15 02/07/18 [Vitamin D3] Ipratropium/Albuterol Sulfate 2 puff INH QID PRN 04/15/15 02/07/18 [Combivent] Nitroglycerin [Nitrostat] 0.4 mg SL Q5M PRN 04/15/15 02/07/18 Saw [place] 160 mg PO QDAY 04/15/15 02/07/18 multivitamin with minerals capsule 1 tab-cap PO QDAY cap 11/14/15 02/07/18 docusate sodium 100 mg capsule 100 mg PO BID PRN 05/15/17 02/07/18 Previous Rx's Medication Instructions Recorded travoprost (benzalkonium) 0.004 % 1 drp OPHTHALMIC HS #5 ml 05/01/16 eye drops ferrous gluconate 324 mg (38 mg 324 mg PO QDAY #100 tab 05/10/16 iron) tablet guaifenesin 400 mg tablet 400 mg PO Q4H PRN #30 tab 09/20/16 albuterol sulfate HFA 90 2 puff INHALATION Q4HP PRN #8.5 g 12/04/16 mcg/actuation aerosol inhaler fludrocortisone 0.1 mg tablet 0.1 mg PO BID #60 tab 05/20/[address] - ER 3 mg 3 mg PO TID #90 each 06/13/17 capsule,delayed,extended release fluoxetine 20 mg capsule 20 mg PO DAILY #30 cap 06/13/17 mercaptopurine 50 mg tablet 50 mg PO QDAY #30 tab 06/13/17 omeprazole 20 mg capsule,delayed 20 mg PO QDAY #30 cap 06/13/17 release adalimumab 40 mg/0.8 mL 40 mg SUB-Q QWEEK #3 ml 07/18/17 subcutaneous syringe kit budesonide-formoterol HFA 160 2 puff INHALATION BID #10.2 g 08/12/17 mcg-4.5 mcg/actuation aerosol inhaler magnesium oxide 400 mg tablet 400 mg PO BID #120 tab 08/12/17 atorvastatin 20 mg tablet 20 mg PO QDAY #90 tab 08/14/17 potassium chloride ER 20 mEq 30 meq PO QID #180 tab 08/15/17 tablet,extended release chlordiazepoxide 25 mg capsule 25 mg PO Q8H PRN #30 cap 11/22/17 hydrocodone 7.5 mg-acetaminophen See Label Instructions PO Q4H PRN 12/09/17 325 mg tablet #60 tab lisinopril 20 mg tablet 20 mg PO QDAY #30 tab 12/12/17 metoprolol tartrate 100 mg tablet 100 mg PO BID #60 tab 12/12/17 hydralazine 50 mg tablet 50 mg PO BID #60 tab 01/10/18 apixaban 5 mg tablet 5 mg PO BID #60 tab 02/07/18 apixaban 5 mg tablet 10 mg PO BID 7 Days #28 tab 02/07/18 Allergies Allergy/AdvReac Type Severity Reaction Status Date / Time lorazepam AdvReac Severe Agitated Verified 02/09/18 11:04 Review of Systems All systems ED: reviewed and negative except as stated. 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) Pulmonary embolism (Chronic) Osteoarthritis (Chronic) Crohn's disease (Chronic) Hyperlipidemia (Chronic 09/11/06) Gastroesophageal reflux (Chronic) Asthma (Chronic) Bursitis (Chronic 09/11/06) Hematochezia (Chronic) Ulcerative colitis (Chronic 12/07/08) Past Surgical History (Last Reviewed 08/15/17 @ 13:12 by Dinesh Mayberry MD) History of colonoscopy (Chronic 09/16/14) History of cardiac catheterization (Chronic 03/07/15) Family History (Last Reviewed 08/15/17 @ 13:12 by Dinesh Mayberry MD) Other No pertinent family history Medical history: Reports: arthritis, asthma, coronary artery disease, GERD, hyperlipidemia, hypertension, pulmonary embolus, other (inflammatory bowel disease, substance abuse, chronic anemia). Denies: CVA, DM, myocardial infarction - Social History smoking status: Former smoker Alcohol use: Reports: Heavy (in past states quit 1 m ago), Recent Drug use: Reports: unknown (substance abuse in past) Physical Exam Limitations: no limitations General appearance: alert Head: other (Abrasion to his forehead) Eye: Present: conjunctival injection ENT: normal exam Neck: Present: tenderness Chest: Present: normal inspection Respiratory: Present: normal lung sounds bilaterally Cardiovascular: Present: regular rate, normal rhythm, normal heart sounds Abdominal: Present: soft. Absent: distention, tenderness Neurological: Present: alert Psychiatric: Present: normal affect, normal mood Skin: Present: warm, dry, intact, other (He has a number of abrasions his arms and legs.) Course Vital Signs Temperature 97.8 F 02/09/18 10:55 Pulse Rate 78 02/09/18 10:55 Respiratory Rate 18 02/09/18 10:55 Blood Pressure 139/79 02/09/18 10:55 Pulse Oximetry (%) 98 02/09/18 10:55 Temperature 97.8 F 02/09/18 10:55 Pulse Rate 73 02/09/18 14:12 Respiratory Rate 14 02/09/18 14:12 Blood Pressure 99/80 02/09/18 14:12 Pulse Oximetry (%) 94 02/09/18 14:12 Fall - MDM Narrative Medical decision making narrative: This patient has a chronic odontoid base fracture which is been present for about a year. Dr. Velasco is well aware of this and the patient has not followed up with him. Dr. Velasco says it does not require surgery. Patient CPK is a bit high he seems dehydrated and was hypotensive for a while. Dr. Rehman will go ahead and admit him to the hospital overnight. - Lab Data Lab results reviewed: Yes I reviewed the patient's lab results. Result diagrams: 02/09/18 11:18 02/09/18 11:18 Lab Results 02/09/18 02/09/18 02/09/18 Range/Units 11:15 11:18 11:18 WBC 4.4 L (4.5-11.0) K/mcL RBC 3.16 L (4.50-5.90) M/mcL Hgb 10.2 L (13.5-16.5) g/dL Hct 30.6 L (41.0-55.0) % MCV 97.1 (80.0-100.0) fL MCH 32.5 (26.0-34.0) pg MCHC 33.4 (31.0-36.0) g/dL RDW 14.5 (11.5-14.5) % Plt Count 219 (140-440) K/mcL MPV 6.5 L (7.4-10.4) fL Gran % 61.9 (38.0-78.0) % Lymph % (Auto) 20.1 (15.5-49.0) % Will % (Auto) 14.4 H (1.0-12.0) % Eos % (Auto) 2.6 (0.0-7.0) % Baso % (Auto) 1.0 (0.0-2.0) % Gran # 2.8 (1.8-8.0) K/mcL Lymph # (Auto) 0.9 L (1.5-4.8) K/mcL Will # (Auto) 0.6 (0.1-0.9) K/mcL Eos # (Auto) 0.1 (0.0-0.7) K/mcL Baso # (Auto) 0 (0.0-0.3) K/mcL POC PT 14.0 (11.9-14.5) sec POC INR 1.2 (0.9-1.2) Sodium 135 (133-145) mmol/L Potassium 3.8 (3.3-5.1) mmol/L Chloride 97 (96-108) mmol/L Carbon Dioxide 21 L (22-30) mmol/L Anion Gap 17.0 H (8-16) BUN 11 (8-23) mg/dl Creatinine 0.8 (0.7-1.2) mg/dl GFR Calculation 90 Glucose 58 L (70-105) mg/dL Calcium 8.0 L (8.6-10.4) mg/dl Total Bilirubin 0.7 (0.0-1.0) mg/dL AST 30 (0-37) U/l ALT 34 (0-40) U/l Alkaline Phosphatase 96 (39-117) U/L Total Creatine Kinase (24-195) IU/L Total Protein 6.0 (5.9-8.4) gm/dL Albumin 2.8 L (3.2-5.2) gm/dL Globulin 3.2 (2.2-3.7) gm/dL Albumin/Globulin Ratio 0.9 L (1.0-2.3) Urine Color Urine Appearance Urine pH (5.0-9.0) Ur Specific [place] (1.000-1.035) Urine Protein (NEG) mg/dL Urine Glucose (UA) (NEG) mg/dL Urine Ketones (NEG) mg/dL Urine Occult Blood (<0.03) mg/dL Urine Nitrate (NEG) Urine Bilirubin (NEG) mg/dL Urine Urobilinogen (NEG) mg/dL Ur Leukocyte Esterase (NEG) /uL Urine RBC (0-1) /hpf Urine WBC (0-4) /hpf Ur Squamous Epith Cells (0-4) /hpf Ur Transition Epith Cell (0-2) /hpf Urine Bacteria (0) /hpf Hyaline Casts (0-2) /lpf Urine Mucus (0) /hpf Ur Culture Indicated? Ethyl Alcohol (<0.010) gm/dl 02/09/18 02/09/18 02/09/18 Range/Units 11:18 11:18 13:05 WBC (4.5-11.0) K/mcL RBC (4.50-5.90) M/mcL Hgb (13.5-16.5) g/dL Hct (41.0-55.0) % MCV (80.0-100.0) fL MCH (26.0-34.0) pg MCHC (31.0-36.0) g/dL RDW (11.5-14.5) % Plt Count (140-440) K/mcL MPV (7.4-10.4) fL Gran % (38.0-78.0) % Lymph % (Auto) (15.5-49.0) % Will % (Auto) (1.0-12.0) % Eos % (Auto) (0.0-7.0) % Baso % (Auto) (0.0-2.0) % Gran # (1.8-8.0) K/mcL Lymph # (Auto) (1.5-4.8) K/mcL Will # (Auto) (0.1-0.9) K/mcL Eos # (Auto) (0.0-0.7) K/mcL Baso # (Auto) (0.0-0.3) K/mcL POC PT (11.9-14.5) sec POC INR (0.9-1.2) Sodium (133-145) mmol/L Potassium (3.3-5.1) mmol/L Chloride (96-108) mmol/L Carbon Dioxide (22-30) mmol/L Anion Gap (8-16) BUN (8-23) mg/dl Creatinine (0.7-1.2) mg/dl GFR Calculation Glucose (70-105) mg/dL Calcium (8.6-10.4) mg/dl Total Bilirubin (0.0-1.0) mg/dL AST (0-37) U/l ALT (0-40) U/l Alkaline Phosphatase (39-117) U/L Total Creatine Kinase 339 H (24-195) IU/L Total Protein (5.9-8.4) gm/dL Albumin (3.2-5.2) gm/dL Globulin (2.2-3.7) gm/dL Albumin/Globulin Ratio (1.0-2.3) Urine Color Yellow Urine Appearance Hazy Urine pH 5.0 (5.0-9.0) Ur Specific [place] 1.017 (1.000-1.035) Urine Protein 30 A (NEG) mg/dL Urine Glucose (UA) Negative (NEG) mg/dL Urine Ketones 80 A (NEG) mg/dL Urine Occult Blood 0.03 A (<0.03) mg/dL Urine Nitrate Neg (NEG) Urine Bilirubin Neg (NEG) mg/dL Urine Urobilinogen Neg (NEG) mg/dL Ur Leukocyte Esterase Neg (NEG) /uL Urine RBC 17 H (0-1) /hpf Urine WBC 3 (0-4) /hpf Ur Squamous Epith Cells < 1 (0-4) /hpf Ur Transition Epith Cell < 1 (0-2) /hpf Urine Bacteria 0 (0) /hpf Hyaline Casts 26 H (0-2) /lpf Urine Mucus Many A (0) /hpf Ur Culture Indicated? No Ethyl Alcohol < 0.010 (<0.010) gm/dl - Radiology Data Radiology results reviewed: Yes I reviewed the patient's radiology results. Disposition Pt seen by STRINGS TEACHER/PA only: No Clinical Impression: Fall, Nondisplaced type II dens fracture, Dehydration Disposition: Xfer As Outpt/Obs ([facility]) Condition: Fair Referrals: Dinesh Mayberry MD [Primary Care Provider] - Time of Disposition: 14:36
[2018-02-09] MEDS ORDERED: ACETAMINOPHEN 325 MG TABLET PO ONE (11:44)
[2018-02-09 11:56] LABS: Basophils # (Auto) 0 K/mcL (0.0-0.3); Eosinophils # (Auto) 0.1 K/mcL (0.0-0.7); Eosinophils % (Auto) 2.6 % (0.0-7.0); Granulocytes % (Auto) 61.9 % (38.0-78.0); Lymphocytes # (Auto) 0.9 K/mcL (1.5-4.8); Lymphocytes % (Auto) 20.1 % (15.5-49.0); Mean Cell Volume 97.1 fL (80.0-100.0); Mean Corpuscular HGB Conc 33.4 g/dL (31.0-36.0); Mean Corpuscular Hemoglobin 32.5 pg (26.0-34.0); Monocytes # (Auto) 0.6 K/mcL (0.1-0.9); Monocytes % (Auto) 14.4 % (1.0-12.0); Platelet Count 219 K/mcL (140-440); RBC 3.16 M/mcL (4.50-5.90); Red Cell Distribution Width 14.5 % (11.5-14.5)
[2018-02-09 12:27] LABS: ALT/SGPT 34 U/l (0-40); Albumin 2.8 gm/dL (3.2-5.2); Albumin/Globulin Ratio 0.9 (1.0-2.3); Alkaline Phosphatase 96 U/L (39-117); Blood Urea Nitrogen 11 mg/dl (8-23)
[2018-02-09 13:55] LABS: Appearance,Urine HAZY; Bacteria,Urine 0 /hpf (0); Bilirubin,Urine NEG (NEG); Color,Urine YELLOW; Glucose,Urine (UA) NEGATIVE (NEG); Leukocyte Esterase,Urine NEG /uL (NEG); Mucus,Urine MANY /hpf (0); Protein,Urine 30 mg/dL (NEG); Specific Gravity,Urine 1.017 (1.000-1.035); Urine Blood 0.03 mg/dL (<0.03); Urine Hyaline Cast 26 /lpf (0-2); Urine RBC 17 /hpf (0-1); Urine Squamous Epithelial Cell < 1 /hpf (0-4); Urine Transitional Epi Cells < 1 /hpf (0-2); Urine WBC 3 /hpf (0-4); Urobilinogen,Urine NEG (NEG)
--- NOTE | 2018-02-09 13:58 | Cat Scan Report ---
CLINICAL INFORMATION: Trauma COMPARISON: 11/17/2017. TECHNIQUE: 2.5 mm helical slices were obtained in the skull base to vertex. Following reconstruction, axial reformatted images were reviewed at bone and parenchymal windows. The exam was performed using radiation dose optimization techniques including, but not limited to, automated exposure control, adjustment of the mA and/or kV according to patient size and use of iterative reconstruction technique. FINDINGS: The ventricles, sulci, fissures, and cisterns are symmetrically enlarged compatible with mild age-related atrophy - no extra-axial fluid collections are appreciated. Minimal chronic ischemic changes in the cerebral white matter typical for age and unchanged. There is no intracerebral hemorrhage, mass effect, edema or other acute finding. Bone windows show no fracture or other osseous normality. IMPRESSION: Mild atrophy and minimal chronic ischemic changes in cerebral white matter expected for age. There is no intracerebral hemorrhage or other acute finding. Interpreted and Authenticated by: Hira Hanks 02/09/18
--- NOTE | 2018-02-09 14:07 | Cat Scan Report ---
CLINICAL INFORMATION: Trauma COMPARISON: Cervical spine CT 11/17/2017. TECHNIQUE: 0.625 mm helical slices were obtained from the skull base through the superior T2 end plate, and following reconstruction, 2.5 mm sagittal, coronal and axial reformations were then processed. The exam was reviewed at bone and soft tissue windows. The exam was performed using radiation dose optimization techniques including, but not limited to, automated exposure control, adjustment of the mA and/or kV according to patient size and use of iterative reconstruction technique. FINDINGS: Chronic transverse type II fracture of the dens base is again seen. No evidence of displacement. No evidence of osseous union since the 11/17/2017 study. There is moderate fibrosis in the region region which mildly impinges the thecal sac. This is unchanged. A nondisplaced chronic fracture of the T1 spinous process is again noted. No acute fracture. The cervical spine is anatomically aligned. The cervical cord is normal in contour, hemorrhage. No soft tissue abnormality. At C2-3, mild broad disc protrusion and facet arthropathy results in moderate right and mild left lateral recess/IV foraminal narrowing. This is unchanged At C3-4, moderate broad disc spur complex and facet arthropathy result in severe bilateral lateral recess/IV foraminal narrowing and moderate central canal stenosis. This is unchanged At C4-5, mild broad disc protrusion and bilateral uncovertebral spurs and facet arthropathy result in severe left lateral recess/IV foraminal narrowing and minimal right lateral recess narrowing At C5-6, mild broad disc protrusion with right-sided asymmetry and facet arthropathy result in mild central canal and severe right lateral recess/IV foraminal narrowing. C6-7, a large broad disc spur complex results in moderate central canal severe bilateral lateral recess/IV foraminal narrowing. At C7-T1, the disc level is normal IMPRESSION: 1. Nondisplaced chronic transverse type II dens fracture - stable. No evidence of osseous union 2. Chronic nondisplaced oblique fracture T1 spinous process - stable. 3. No acute fracture 4. Multilevel degenerative change resulting in significant central canal, lateral recesses and IV foraminal narrowing at each level - no change Interpreted and Authenticated by: Hira Hanks 02/09/18
--- NOTE | 2018-02-09 15:54 | Internal Med History&Physical ---
Medical - H&P: HPI Patient information: Note initiated : 02/09/18 at 3:51 pm Service Date, if different from initiated Date: [] Patient: Christian Andrews a 72 y/o M admitted on for Fall/Weakness. Chief Complaint: [] History of present illness: Mr. Andrews is a 72 year old Male with multiple medical issues, crohns disease, on immunosuppresants, h/o dvt/pe on anticoagulation, alcoholism with frequent falls, presents to the hospital today for evaluation of a fall The patent notes that he has been feeling weak for 2 weeks, he has not had a drink for 10 days, and has not had much to eat or drink, last meal was day before yesterday, he notes he is just not feeling right. last night he was trying to go from his living room to the bedroom, while using a walker he tripped and fell down, he felt somewhat dizzy but no syncope or presyncope like epidos. He was watching TV befor this happened. The patient did not have enough strength to get up, eventually I believe a friend brought him to the hospital. In the hospital he was hemodynamically stable, head CT neg, ekg shows sinus rhythm, occasional pvc, left axis, possible lafb. CXR and hip x ray are pending. CT spine shows chr fractures and DJD no acute changes. Labs reviewed, signifcant for low bicarb at 21, presence of ketones in urine, and low glucose at 58 The patient also repoted pain in the right upper quadrant and was tender to palpation in that region. given his h/o trauma, and the fact that he has had multiple falls, recent thrombophlebitis, and is on anticoagulation, will get ct chest abdomen and pelvis to further evaluate any traumatic etiology. Pt does not have any h/o etoh withdrawal as per him, but I do see a prescription for librium in the med list. occasional headaches, chr shortness of breath, chr neck and back pain. chr depression present, All systems: reviewed and no additional remarkable complaints except as stated ( as per HPI< rest neg) Review of systems: occasional headaches, chr shortness of breath, chr neck and back pain. 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) Pulmonary embolism (Chronic) Osteoarthritis (Chronic) Crohn's disease (Chronic) Hyperlipidemia (Chronic 09/11/06) Gastroesophageal reflux (Chronic) Asthma (Chronic) Bursitis (Chronic 09/11/06) Hematochezia (Chronic) Ulcerative colitis (Chronic 12/07/08) Surgical history: Past Surgical History (Last Reviewed 08/15/17 @ 13:12 by Dinesh Mayberry MD) History of colonoscopy (Chronic 09/16/14) History of cardiac catheterization (Chronic 03/07/15) Pertinent family history: Family History (Last Reviewed 08/15/17 @ 13:12 by Dinesh Mayberry MD) Other No pertinent family history Medical - H&P: Meds Home Medications Medication Instructions Recorded Confirmed Type Ascorbic Acid [Ascorbic Acid with 500 mg PO QDAY 04/15/15 02/07/18 History Rh] Aspirin [Ecotrin] 81 mg PO QDAY 04/15/15 02/07/18 History Cholecalciferol (Vitamin D3) 2,000 unit PO QIDP 04/15/15 02/07/18 History [Vitamin D3] Ipratropium/Albuterol Sulfate 2 puff INH QID PRN 04/15/15 02/07/18 History [Combivent] Nitroglycerin [Nitrostat] 0.4 mg SL Q5M PRN 04/15/15 02/07/18 History Saw Hardy 160 mg PO QDAY 04/15/15 02/07/18 History multivitamin with minerals capsule 1 tab-cap PO QDAY cap 11/14/15 02/07/18 History travoprost (benzalkonium) 0.004 % 1 drp OPHTHALMIC HS #5 ml 05/01/16 02/07/18 Rx eye drops ferrous gluconate 324 mg (38 mg 324 mg PO QDAY #100 tab 05/10/16 02/07/18 Rx iron) tablet guaifenesin 400 mg tablet 400 mg PO Q4H PRN #30 tab 09/20/16 02/07/18 Rx albuterol sulfate HFA 90 2 puff INHALATION Q4HP PRN #8.5 g 12/04/16 02/07/18 Rx mcg/actuation aerosol inhaler docusate sodium 100 mg capsule 100 mg PO BID PRN 05/15/17 02/07/18 History fludrocortisone 0.1 mg tablet 0.1 mg PO BID #60 tab 05/20/17 02/07/[address] - ER 3 mg 3 mg PO TID #90 each 06/13/17 02/07/18 Rx capsule,delayed,extended release fluoxetine 20 mg capsule 20 mg PO DAILY #30 cap 06/13/17 02/07/18 Rx mercaptopurine 50 mg tablet 50 mg PO QDAY #30 tab 06/13/17 02/07/18 Rx omeprazole 20 mg capsule,delayed 20 mg PO QDAY #30 cap 06/13/17 02/07/18 Rx release adalimumab 40 mg/0.8 mL 40 mg SUB-Q QWEEK #3 ml 07/18/17 02/07/18 Rx subcutaneous syringe kit budesonide-formoterol HFA 160 2 puff INHALATION BID #10.2 g 08/12/17 02/07/18 Rx mcg-4.5 mcg/actuation aerosol inhaler magnesium oxide 400 mg tablet 400 mg PO BID #120 tab 08/12/17 02/07/18 Rx atorvastatin 20 mg tablet 20 mg PO QDAY #90 tab 08/14/17 02/07/18 Rx potassium chloride ER 20 mEq 30 meq PO QID #180 tab 08/15/17 02/07/18 Rx tablet,extended release chlordiazepoxide 25 mg capsule 25 mg PO Q8H PRN #30 cap 11/22/17 02/07/18 Rx hydrocodone 7.5 mg-acetaminophen See Label Instructions PO Q4H PRN 12/09/1709/26 Rx 325 mg tablet #60 tab lisinopril 20 mg tablet 20 mg PO QDAY #30 tab 12/12/17 02/07/18 Rx metoprolol tartrate 100 mg tablet 100 mg PO BID #60 tab 12/12/17 02/07/18 Rx hydralazine 50 mg tablet 50 mg PO BID #60 tab 01/10/18 02/07/18 Rx apixaban 5 mg tablet 5 mg PO BID #60 tab 02/07/18 02/07/18 Rx apixaban 5 mg tablet 10 mg PO BID 7 Days #28 tab 02/07/18 02/07/18 Rx Allergies Allergy/AdvReac Type Severity Reaction Status Date / Time lorazepam AdvReac Severe Agitated Verified 02/09/18 11:04 Medical - H&P: Exam - Constitutional Vitals: Temp Pulse Resp BP Pulse Ox 97.8 F 75 14 104/68 94 02/09/18 10:55 02/09/18 15:31 02/09/18 15:31 02/09/18 15:31 02/09/18 15:31 Exam: GENERAL: The patient is a well-developed, well-nourished, poorly kempt, in no apparent distress. Is alert and oriented x3. VITAL SIGNS: Reviewed and as noted elsewhere. HEENT: Head is normocephalic and atraumatic. Extraocular muscles are intact. Pupils are equal, round, and reactive to light. Nares appeared normal. Mouth appears any without lesions. Mucous membranes are dry. NECK: Normal to inspection, Supple, No lymphadenopathy or thyromegaly. LUNGS: Air entry equal on both sides, no wheezing, crackles or rhonchi noted. No accessory muscles of respiration HEART: Regular rate and rhythm normal, S1 and S2 heard, no Gallop, S3 or Rub Noted, No Gross murmur heard. ABDOMEN: Soft, ruq tenderness, over the rib cage, bruising noted, abdomen is nondistended. Positive bowel sounds. No hepatosplenomegaly was noted. EXTREMITIES: No cyanosis, clubbing, rash, lesions or edema. NEUROLOGIC: Cranial nerves II through XII are grossly intact. Motor and Sensory System Grossly Intact PSYCHIATRIC: Normal affect, Normal Mood. Appropriate Behavior. SKIN: No ulceration or wounds noted, No jaundice, No rash noted. Medical - H&P: Reslt - Labs CBC & Chem 7: 02/09/18 11:18 02/09/18 11:18 Labs: Short CBC 02/09/18 Range/Units 11:18 WBC 4.4 L (4.5-11.0) K/mcL Hgb 10.2 L (13.5-16.5) g/dL Hct 30.6 L (41.0-55.0) % Plt Count 219 (140-440) K/mcL BMP 02/09/18 11:18 Sodium 135 Potassium 3.8 Chloride 97 Carbon Dioxide 21 L BUN 11 Creatinine 0.8 Glucose 58 L Calcium 8.0 L Cardiac Enzymes 02/09/18 Range/Units 11:18 Total Creatine Kinase 339 H (24-195) IU/L Liver Function 02/09/18 Range/Units 11:18 Total Bilirubin 0.7 (0.0-1.0) mg/dL AST 30 (0-37) U/l ALT 34 (0-40) U/l Alkaline Phosphatase 96 (39-117) U/L Albumin 2.8 L (3.2-5.2) gm/dL Urine 02/09/18 Range/Units 13:05 Urine Color Yellow Urine Appearance Hazy Urine pH 5.0 (5.0-9.0) Ur Specific [place] 1.017 (1.000-1.035) Urine Protein 30 A (NEG) mg/dL Urine Glucose (UA) Negative (NEG) mg/dL Medical - H&P: A/P - Narrative A/P Narrative: A/P Mechanical fall Weakness Dehydration Starvation ketosis hypoglycemia Coronoary artery disease, s/p stent Congestive heart failure, LEVF 38% as per last stress test in jul 2017 h/p Pulmonary embolism venous thrombosis, right upper extremity, on anticoagulation Alcohol abuse Recurrent falls Chr dizziness, left subclavian artery stenosis, not sure if stented, this was noted on CT 10/2016 Depression Crohns disease Orthostatic hypotension, on florinef Plan Admit to med surg IV fluids, with D5LR CIwa protocol for now OT/PT eval Get CT chest abdo and pelvis given fall, and being on coumadin history not suggestive of cardiac etiology will review with pt if his subclavian artery was stented, I am unable to find any documentation to that effect in the chart at this time. continue anticoagulation for now as per PCP, he seems to be on the 10mg bid regime so far on his eliquis. UE dvt noted on 02/07/2018 Resume home meds as appropriate DVT on eliquis\ Full code Cardiac diet Social History - Tobacco smoking status: Former smoker - Alcohol alcohol intake frequency: 2+ drinks per day (heavy etoh consumption 5-6 drinks a day jackdaniels.) counseling given: Yes
[2018-02-09] MEDS ORDERED: chlordiazePOXIDE 25 MG CAPSULE PO PRN ×2 (16:26→16:39)
[2018-02-09] MEDS ORDERED: NALOXONE HCL 0.4 MG/ML VIAL IV PRN (16:39)
[2018-02-09] MEDS ORDERED: MAGNESIUM HYDROXIDE 30 ML ORAL.SUSP PO PRN (16:39)
[2018-02-09] MEDS ORDERED: HYDROmorphone 2 MG/ML VIAL IV PRN (16:39)
[2018-02-09] MEDS ORDERED: ALBUTEROL SULFATE 2.5 MG/3 ML NEBULIZER NEB PRN (16:39)
[2018-02-09] MEDS ORDERED: cloNIDine HCL 0.1 MG TABLET PO PRN (16:39)
[2018-02-09] MEDS ORDERED: ONDANSETRON 4 MG/2 ML VIAL IV PRN (16:39)
[2018-02-09] MEDS: DEXTROSE 5%-LR 1,000 ML IV SCH (17:20)
[2018-02-09] MEDS: PANTOPRAZOLE 40 MG TABLET PO SCH (18:27)
[2018-02-09] MEDS: oxyCODONE HCL 5 MG TABLET PO PRN (18:28)
[2018-02-09] MEDS: IPRATROPIUM/ALBUTEROL 3 ML AMPUL.NEB NEB SCH (18:56)
[2018-02-09] MEDS: BUDESONIDE 0.5 MG/2 ML AMPUL.NEB NEB SCH ×2 (18:57→21:21)
--- NOTE | 2018-02-09 19:08 | XRay Report ---
CLINICAL INFORMATION: Dyspnea COMPARISON: 06/23/2017 FINDINGS: Moderate cardiomegaly is unchanged. Mediastinum and pulmonary vessels are normal. A small focal density has developed in the the lingular region likely scarring atelectasis or infiltrate. No effusion. There are syndesmophytes bridging the thoracic vertebral bodies suggesting ankylosing spondylitis IMPRESSION: 1. Focal lingular atrophy, new from prior study, is likely scarring, atelectasis or infiltrate. Suggest repeat two view chest x-ray in 2-3 weeks to ensure resolution (the absence of underlying mass) Interpreted and Authenticated by: Hira Hanks 02/09/18
--- NOTE | 2018-02-09 19:13 | XRay Report ---
CLINICAL INFORMATION: Trauma COMPARISON: 04/08/2017 FINDINGS: Bilateral hip prostheses remains in anatomic position. No evidence of loosening or infection. There is marked heterotopic ossification in the right pericapular region which has increased. Moderate expansion of the inferior right [place] bony acetabulum is unchanged since the immediate postoperative study of 04/08/2017 and likely represents removed bone at the time of surgery. No fracture or posttraumatic change appreciated IMPRESSION: 1. No fracture or posttraumatic change 2. Moderate heterotopic ossification in the pericapsular right hip - increasing Interpreted and Authenticated by: Hira Hanks 02/09/18
--- NOTE | 2018-02-09 19:49 | Cat Scan Report ---
CLINICAL INFORMATION: Trauma COMPARISON: 10/19/2016 TECHNIQUE: Enteric contrast was utilized. 80 cc of [id number]-300 were injected intravenously, and 50 seconds later 2.5 mm helical slices were obtained from the lung apices through the subtrochanteric regions of the femurs. Following reconstruction, 2.5 mm sagittal, coronal and axial reformatted images were processed and reviewed at multiple windows and levels. 7 mm MIP reconstructions were obtained through the lungs to optimize nodule detection.The exam was performed using radiation dose optimization techniques including, but not limited to, automated exposure control, adjustment of the mA and/or kV according to patient size and use of iterative reconstruction technique. FINDINGS: Pulmonary parenchymal windows show only scattered scarring within the right middle lobe, lingula and lower lobes. There are no infiltrates, nodules or contusions. No evidence of pneumo or hemothorax. The pulmonary arteries are normal in contour and caliber - no embolus appreciated. Thoracic aorta contains minimal plaque is normal in contour and caliber. There is no hemorrhage or adenopathy within the mediastinum or hilum.. The heart is borderline enlarged is moderately heavy calcific plaque in the coronary arteries. The abdomen show small ossified attenuation material and the gallbladder lumen which could indicate gallstones. Gallbladder leger unremarkable. Common bile duct normal caliber at 6 mm. The liver, both adrenal glands, spleen pancreas and aorta including branches are normal in size and duration attenuation without focal lesion. There a few nonobstructing stones in the right kidney ranging up to 3 mm. No obstructing stone or hydronephrosis. Images should the pelvis show urinary bladder prostate seminal vesicles to be normal. Sigmoid diverticuli noted but no evidence of diverticulitis. The remainder of the colon small bowel stomach are normal. Bone windows show bilateral hip prostheses in anatomic position enlargement of the inferior right [place] acetabulum likely related surgical overgrowing. Moderate heterotopic ossification right hip capsule. No fracture IMPRESSION: 1. No acute posttraumatic change throughout the chest abdomen or pelvis. A few healing old left lower rib fractures are incidentally noted 2. Small nonobstructing stones within the calyces of the right kidney ranging up to 7 mm. 3. Vague increased density within the gallbladder lumen possible gallstones consider limited gallbladder ultrasound 4. Small periumbilical hernia containing only mesenteric fat. 5. Moderate heterotopic ossification about the right hip prostheses capsule Interpreted and Authenticated by: Hira Hanks 02/09/18
[2018-02-09] MEDS: APIXABAN 2.5 MG TABLET PO SCH (20:59)
[2018-02-09] MEDS: 0.9 % SODIUM CHLORIDE 10 ML SYRINGE IV SCH ×2 (21:01→22:34)
[2018-02-09] MEDS ORDERED: THIAMINE 100 MG/ML VIAL ONE (21:59)
[2018-02-09] MEDS: THIAMINE 100 MG in 0.9 % SODIUM CHLORIDE 50 ML IV SCH (22:09)
[2018-02-10] MEDS: IPRATROPIUM/ALBUTEROL 3 ML AMPUL.NEB NEB SCH ×4 (00:37→19:22)
[2018-02-10] MEDS: oxyCODONE HCL 5 MG TABLET PO PRN ×3 (00:43→17:47)
[2018-02-10] MEDS: ACETAMINOPHEN 325 MG TABLET PO PRN ×3 (00:43→14:28)
[2018-02-10] MEDS: DEXTROSE 5%-LR 1,000 ML IV SCH (01:44)
[2018-02-10] MEDS: 0.9 % SODIUM CHLORIDE 10 ML SYRINGE IV SCH ×6 (05:15→21:05)
[2018-02-10 05:44] LABS: Basophils # (Auto) 0 K/mcL (0.0-0.3); Basophils % (Auto) 0.8 % (0.0-2.0); Eosinophils # (Auto) 0.2 K/mcL (0.0-0.7); Eosinophils % (Auto) 5.6 % (0.0-7.0); Granulocytes % (Auto) 54.4 % (38.0-78.0); Lymphocytes # (Auto) 0.9 K/mcL (1.5-4.8); Mean Cell Volume 96.4 fL (80.0-100.0); Mean Corpuscular HGB Conc 34.8 g/dL (31.0-36.0); Mean Corpuscular Hemoglobin 33.6 pg (26.0-34.0); Monocytes # (Auto) 0.5 K/mcL (0.1-0.9); Monocytes % (Auto) 14.2 % (1.0-12.0); Platelet Count 166 K/mcL (140-440); Red Cell Distribution Width 14.5 % (11.5-14.5)
[2018-02-10 07:02] LABS: ALT/SGPT 27 U/l (0-40); Albumin 2.2 gm/dL (3.2-5.2); Albumin/Globulin Ratio 0.8 (1.0-2.3); Alkaline Phosphatase 78 U/L (39-117); Bilirubin,Direct < 0.2 mg/dL (0.0-0.3); Blood Urea Nitrogen 8 mg/dl (8-23); Gamma Glutamyl Transpeptidase 71 U/L (8-61); Uric Acid 6.9 mg/dL (2.5-8.0)
[2018-02-10] MEDS ORDERED: MAGNESIUM SULFATE 2 GM/50 ML BAG IV ONE (07:07)
[2018-02-10] MEDS ORDERED: POTASSIUM CHLORIDE 20 MEQ PACKET PO ONE (07:07)
[2018-02-10] MEDS: PANTOPRAZOLE 40 MG TABLET PO SCH (07:08)
[2018-02-10] MEDS: BUDESONIDE 0.5 MG/2 ML AMPUL.NEB NEB SCH ×2 (07:44→19:27)
[2018-02-10] MEDS: APIXABAN 2.5 MG TABLET PO SCH ×2 (08:52→21:02)
[2018-02-10] MEDS: MULTIVIT,THER IRON,CA,FA & MIN 1 TABLET PO SCH (08:53)
[2018-02-10] MEDS: FOLIC ACID 1 MG TABLET PO SCH (08:53)
[2018-02-10] MEDS: THIAMINE 100 MG in 0.9 % SODIUM CHLORIDE 50 ML IV SCH (10:11)
--- NOTE | 2018-02-10 11:01 | Internal Med Progress Note ---
Medical - PN: Subj Patient information: Note initiated : 02/10/18 at 10:59 am Service Date, if different from initiated Date: [] Patient: Christian Andrews 72 y/o M admitted on 02/09/18 for Fall/Weakness. Chief Complaint: [] Interval history: Mr. Andrews is a 72 year old Male with multiple medical issues, crohns disease, on immunosuppresants, h/o dvt/pe on anticoagulation, alcoholism with frequent falls, presents to the hospital today for evaluation of a fall The patent notes that he has been feeling weak for 2 weeks, he has not had a drink for 10 days, and has not had much to eat or drink, last meal was day before yesterday, he notes he is just not feeling right. last night he was trying to go from his living room to the bedroom, while using a walker he tripped and fell down, he felt somewhat dizzy but no syncope or presyncope like epidos. He was watching TV befor this happened. The patient did not have enough strength to get up, eventually I believe a friend brought him to the hospital. In the hospital he was hemodynamically stable, head CT neg, ekg shows sinus rhythm, occasional pvc, left axis, possible lafb. CXR and hip x ray are pending. CT spine shows chr fractures and DJD no acute changes. Labs reviewed, signifcant for low bicarb at 21, presence of ketones in urine, and low glucose at 58 The patient also repoted pain in the right upper quadrant and was tender to palpation in that region. given his h/o trauma, and the fact that he has had multiple falls, recent thrombophlebitis, and is on anticoagulation, will get ct chest abdomen and pelvis to further evaluate any traumatic etiology. Pt does not have any h/o etoh withdrawal as per him, but I do see a prescription for librium in the med list. occasional headaches, chr shortness of breath, chr neck and back pain. chr depression present, 6/4 Pt seen examined no acute overnight issues tolerating po well this AM drop in hb noted, no e/o bleed, likely dilutional pt still feels weak CT head, neck, CHEST and abdomen is negative continue with rehab CK back to normal K low at 3.2 he was seen by Dr Chi, but the patient did not go for a follow up, he is not able to tell for sure if left arm activity is assocated with dizziness. Pertinent ROS: chr headache, dizziness Denies chest pain, palpitations Denies cough or shortness of breath Denies abdominal pain, nausea or vomiting. - Constitutional Vitals: Vital Signs Temp Pulse Resp BP Pulse Ox 98.6 F 84 16 146/82 94 02/10/18 07:11 02/10/18 07:45 02/10/18 07:45 02/10/18 07:11 02/10/18 07:18 Period Temp Pulse Resp BP Sys/Phillips Pulse Ox Last 24 Hr 97.7 F-99.4 F 62-96 14-26 83-146/58-97 94-98 Intake and Output 02/09/18 02/10/18 02/10/18 21:59 05:59 13:59 Intake Total 500 / 500 1841 / 1841 286 / 286 Output Total 560 / 560 525 / 525 250 / 250 Balance -60 / -60 1316 / 1316 36 / 36 Weight 229 lb Intake & Output: Intake & Output 02/09/18 02/10/18 02/10/18 21:59 05:59 13:59 Intake Total 500 / 500 1841 / 1841 286 / 286 Output Total 560 / 560 525 / 525 250 / 250 Balance -60 / -60 1316 / 1316 36 / 36 Weight 229 lb Intake: IV 500 / 500 1051 / 1051 50 / 50 Dextrose 5%-Lactated Ringers 1, 1000 / 1000 000 ml @ 125 mls/hr IV .Q8H [facility] Rx#:[id number] Lactated Ringers 1,000 ml @ 500 / 500 Wide Open IV BOLUS ONE Rx#: [id number] Vitamin B1 100 mg In Sodium 51 / 51 Chloride 0.9% 50 ml @ 50 mls/hr IV DAILY [facility] Rx#:[id number] Oral 790 / 790 236 / 236 Output: Void Amount 560 / 560 525 / 525 250 / 250 Other: Meal Breakfast Percent of Meal Consumed 100% Feeding Ability Independent Stool Size Small Stool Color Black Stool Consistency Loose # Bowel Movements 1 Exam: Constitutional; Afebrile, cooperative, alert, not in distress. Eyes- No icterus, , No periorbital swelling Ears- Ext ear normal, hearing normal to conversation. Neck- Midline trachea, supple Respiratory system: Air Entry equal on both sides, No crackles or wheezing, no rhonchi. CVS- Rate rhythm regular, S1,S2 heard, no gallop, no rub. 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 Medical - PN: Obj Da - Labs CBC & Chem 7: 02/10/18 03:55 02/10/18 03:55 Labs: Abnormal Lab Results 02/10/18 02/10/18 02/09/18 03:55 03:55 13:05 WBC 3.6 L RBC 2.60 L Hgb 8.7 L Hct 25.1 L MPV 6.9 L [place] % (Auto) 14.2 H Lymph # (Auto) 0.9 L Potassium 3.2 L Carbon Dioxide Anion Gap Glucose 150 H Calcium 7.8 L GGT 71 H Lactate Dehydrogenase 290 H Total Creatine Kinase Total Protein 5.0 L Albumin 2.2 L Albumin/Globulin Ratio 0.8 L Urine Protein 30 A Urine Ketones 80 A Urine Occult Blood 0.03 A Urine RBC 17 H Hyaline Casts 26 H Urine Mucus Many A 02/09/18 02/09/18 02/09/18 11:18 11:18 11:18 WBC 4.4 L RBC 3.16 L Hgb 10.2 L Hct 30.6 L MPV 6.5 L [place] % (Auto) 14.4 H Lymph # (Auto) 0.9 L Potassium Carbon Dioxide 21 L Anion Gap 17.0 H Glucose 58 L Calcium 8.0 L GGT Lactate Dehydrogenase Total Creatine Kinase 339 H Total Protein Albumin 2.8 L Albumin/Globulin Ratio 0.9 L Urine Protein Urine Ketones Urine Occult Blood Urine RBC Hyaline Casts Urine Mucus Meds: Medications Acetaminophen (Tylenol) 650 mg PO Q6HP PRN PRN Reason: PAIN/FEVER > 101 Last Admin: 02/10/18 07:06 Dose: 650 mg Albuterol Sulfate (Ventolin) 2.5 mg NEB Q2HP PRN PRN Reason: Shortness Of Breath Albuterol/Ipratropium (Duoneb) 3 ml NEB Q6HRT [facility] Last Admin: 02/10/18 07:44 Dose: 3 ml Budesonide (Pulmicort) 0.5 mg NEB Q12 [place] Last Admin: 02/10/18 07:44 Dose: 0.5 mg Chlordiazepoxide HCl (Librium) 0 mg PO Q4HP PRN; Protocol PRN Reason: Alcohol Withdrawal Clonidine HCl (Catapres) 0.1 mg PO Q4HP PRN PRN Reason: Alcohol Withdrawal Folic Acid (Folic Acid) 1 mg PO DAILY [facility] Last Admin: 02/10/18 08:53 Dose: 1 mg Hydromorphone HCl (Dilaudid) 0.5 mg IV Q2HP PRN PRN Reason: PAIN LEVEL > 6 Thiamine HCl 100 mg/ Sodium (Chloride) 51 mls @ 50 mls/hr IV DAILY [facility] Last Admin: 02/10/18 10:11 Dose: 50 mls/hr Iron Carb/Multivit/Nogal/Folic Acid (Multivitamin W/Minerals) 1 tab PO DAILY [facility] Last Admin: 02/10/18 08:53 Dose: 1 tab Magnesium Hydroxide (Milk Of Magnesia) 30 ml PO DAILYP PRN PRN Reason: Constipation Naloxone HCl (Narcan) 0.1 mg IV Q2MIN PRN PRN Reason: Opiate Reversal Ondansetron HCl (Zofran) 4 mg IV Q6HP PRN PRN Reason: Nausea And Vomiting Oxycodone HCl (Roxicodone) 5 mg PO Q4HP PRN PRN Reason: PAIN LEVEL 3-6 Last Admin: 02/10/18 07:08 Dose: 5 mg Pantoprazole Sodium (Protonix) 40 mg PO QAMAC [facility] Last Admin: 02/10/18 07:08 Dose: 40 mg Sodium Chloride (Saline Flush) 10 ml IV Q8 [facility] Last Admin: 02/10/18 05:15 Dose: Not Given Sodium Chloride (Saline Flush) 10 ml IV Q8 [facility] Last Admin: 02/10/18 05:15 Dose: Not Given Medical - PN: A/P - Time Spent With Patient Total time spent is greater than 50% in coordination of care (as documented) at patient's floor/unit and/or counseling patient: - Narrative A/P Narrative: A/P Mechanical fall Weakness Dehydration Starvation ketosis hypoglycemia Coronoary artery disease, s/p stent Congestive heart failure, LEVF 38% as per last stress test in jul 2017 h/p Pulmonary embolism venous thrombosis, right upper extremity, on anticoagulation Alcohol abuse Recurrent falls Chr dizziness, left subclavian artery stenosis, not sure if stented, this was noted on CT 10/2016 Depression Crohns disease Orthostatic hypotension, on florinef rhabdomyolysis- ck resolved Plan continue to monitor, continue IV fluids, with D5LR CIwa protocol for now, no e/o withdrawal OT/PT eval today not sure if can be placed to rehab facility. will continue with aggresive rehab and hopefully d/c back home in AM DVT on eliquis\ Full code Cardiac diet Medical - PN: Qual - VTE Deep Vein Thrombosis/Pulmonary Embolism Present on Admission: No
[2018-02-10] MEDS: FLUoxetine HCL 20 MG CAPSULE PO SCH (11:22)
[2018-02-10] MEDS: MERCAPTOPURINE 50 MG TABLET PO SCH (11:29)
[2018-02-10] MEDS ORDERED: 0.9 % SODIUM CHLORIDE 1,000 ML IV ONE (12:04)
[2018-02-10] MEDS: POTASSIUM CHLORIDE 10 MEQ TABLET PO SCH ×3 (12:42→21:02)
[2018-02-10] MEDS: VITAMIN D3 1,000 UNIT TABLET PO SCH ×3 (14:28→21:03)
[2018-02-10] MEDS: BUDESONIDE 3 MG CAP.XL.24H PO SCH ×2 (15:58→21:05)
[2018-02-10] MEDS ORDERED: EYE OU SCH (21:00)
[2018-02-10] MEDS ORDERED: ATORVASTATIN 20 MG TABLET PO SCH (21:00)
[2018-02-10] MEDS ORDERED: TRAVOPROST 0.004% OU SCH (21:00)
[2018-02-10] MEDS: hydrALAZINE 25 MG TABLET PO SCH (21:02)
[2018-02-10] MEDS: ASCORBIC ACID 500 MG TABLET PO SCH (21:03)
[2018-02-10] MEDS: METOPROLOL TARTRATE 50 MG TABLET PO SCH (21:03)
[2018-02-10] MEDS: MAGNESIUM OXIDE 400 MG TABLET PO SCH (21:03)
[2018-02-10] MEDS: Budesonide/Formoterol Fumarate [Symbicort] 160-4.5 mcg Inhaler INH SCH (21:04)
[2018-02-10] MEDS: FLUDROCORTISONE 0.1 MG TABLET PO SCH (21:13)
[2018-02-11 05:35] LABS: Basophils # (Auto) 0 K/mcL (0.0-0.3); Basophils % (Auto) 1.2 % (0.0-2.0); Eosinophils # (Auto) 0.2 K/mcL (0.0-0.7); Eosinophils % (Auto) 6.2 % (0.0-7.0); Lymphocytes # (Auto) 0.9 K/mcL (1.5-4.8); Lymphocytes % (Auto) 23.8 % (15.5-49.0); Mean Cell Volume 99.7 fL (80.0-100.0); Mean Corpuscular HGB Conc 32.8 g/dL (31.0-36.0); Mean Corpuscular Hemoglobin 32.7 pg (26.0-34.0); Monocytes # (Auto) 0.5 K/mcL (0.1-0.9); Monocytes % (Auto) 11.8 % (1.0-12.0); Platelet Count 194 K/mcL (140-440); RBC 2.67 M/mcL (4.50-5.90); Red Cell Distribution Width 15.5 % (11.5-14.5)
[2018-02-11 06:18] LABS: ALT/SGPT 24 U/l (0-40); Albumin 2.3 gm/dL (3.2-5.2); Albumin/Globulin Ratio 0.9 (1.0-2.3); Alkaline Phosphatase 72 U/L (39-117); Bilirubin,Direct < 0.2 mg/dL (0.0-0.3); Blood Urea Nitrogen 6 mg/dl (8-23); Gamma Glutamyl Transpeptidase 66 U/L (8-61); Uric Acid 6.2 mg/dL (2.5-8.0)
[2018-02-11] MEDS: BUDESONIDE 0.5 MG/2 ML AMPUL.NEB NEB SCH (07:17)
[2018-02-11] MEDS: IPRATROPIUM/ALBUTEROL 3 ML AMPUL.NEB NEB SCH ×2 (07:17)
[2018-02-11] MEDS ORDERED: FERROUS GLUCONATE 324 MG TABLET PO SCH (08:00)
[2018-02-11] MEDS: 0.9 % SODIUM CHLORIDE 10 ML SYRINGE IV SCH ×2 (08:05→09:46)
[2018-02-11] MEDS: POTASSIUM CHLORIDE 10 MEQ TABLET PO SCH (08:05)
[2018-02-11] MEDS: PANTOPRAZOLE 40 MG TABLET PO SCH (08:05)
[2018-02-11] MEDS ORDERED: MULTIVITAMIN WITH MINERALS PO SCH (09:00)
[2018-02-11] MEDS ORDERED: ASPIRIN 81 MG TAB.CHEW PO SCH (09:00)
[2018-02-11] MEDS ORDERED: LISINOPRIL 20 MG TABLET PO SCH (09:00)
[2018-02-11] MEDS: APIXABAN 2.5 MG TABLET PO SCH (09:35)
[2018-02-11] MEDS: hydrALAZINE 25 MG TABLET PO SCH (09:41)
[2018-02-11] MEDS: FLUoxetine HCL 20 MG CAPSULE PO SCH (09:42)
[2018-02-11] MEDS: ASCORBIC ACID 500 MG TABLET PO SCH (09:42)
[2018-02-11] MEDS: FOLIC ACID 1 MG TABLET PO SCH (09:42)
[2018-02-11] MEDS: MAGNESIUM OXIDE 400 MG TABLET PO SCH (09:42)
[2018-02-11] MEDS: VITAMIN D3 1,000 UNIT TABLET PO SCH (09:42)
[2018-02-11] MEDS: BUDESONIDE 3 MG CAP.XL.24H PO SCH (09:47)
[2018-02-11] MEDS: MERCAPTOPURINE 50 MG TABLET PO SCH (09:47)
[2018-02-11] MEDS: Budesonide/Formoterol Fumarate [Symbicort] 160-4.5 mcg Inhaler INH SCH (09:48)
[2018-02-11] MEDS: METOPROLOL TARTRATE 50 MG TABLET PO SCH (09:51)
[2018-02-11] MEDS: MULTIVIT,THER IRON,CA,FA & MIN 1 TABLET PO SCH (09:51)
--- NOTE | 2018-02-11 10:59 | Discharge Summary ---
Medical - DS: Prov Patient information: Note initiated : 02/11/18 at 10:57 am Service Date, if different from initiated Date: [] Patient: Christian Andrews 72 y/o M admitted on 02/09/18 for Fall, Nondisplaced type II dens Fx, Dehydration. Chief Complaint: [] Date of admission: 02/09/18 16:18 Discharge date: 02/11/18 Primary care physician: Dinesh Mayberry Admitting clinician: Kezia Rehman Consults: 02/09/18 14:31 Consult to Physician [CONS] Stat Comment: Consulting Provider: Kezia Rehman Reason For Exam: Physician to Consult Discharging clinician: Kezia Rehman Medical - DS: Meds - Discharge Medications Prescriptions: Hydrocodone/APAP 7.5/325Mg [[place] 7.5-325Mg] See Label Instructions PO Q4H PRN # 60 tab PRN Reason: pain Active and Home Medications: Home Medications Ascorbic Acid [Ascorbic Acid with Rh] 1,000 mg PO BID 04/15/15 [History Confirmed 02/09/18 Last Taken 06/17/17 17:00] Aspirin [Ecotrin] 81 mg PO QDAY 04/15/15 [History Confirmed 02/09/18 Last Taken 06/17/17 21:30] Cholecalciferol (Vitamin D3) [Vitamin D3] 2,000 unit PO QIDP 04/15/15 [History Confirmed 02/09/18 Last Taken 06/18/17 10:00] Nitroglycerin [Nitrostat] 0.4 mg SL Q5M PRN 04/15/15 [History Confirmed Last Taken Unknown] multivitamin with minerals capsule 1 tab-cap PO QDAY cap 11/14/15 [History Confirmed 02/09/18 Last Taken 06/18/17 10:00] travoprost (benzalkonium) 0.004 % eye drops 1 drp OPHTHALMIC HS #5 ml 05/01/16 [ Rx Confirmed 02/09/18 Last Taken 06/17/17 21:00] ferrous gluconate 324 mg (38 mg iron) tablet 324 mg PO QDAY #100 tab 05/10/16 [ Rx Confirmed 02/09/18 Last Taken 06/18/17 10:00] albuterol sulfate HFA 90 mcg/actuation aerosol inhaler 2 puff INHALATION Q4HP PRN #8.5 g 12/04/16 [Rx Confirmed 02/09/18 Last Taken 04/08/17] fludrocortisone 0.1 mg tablet 0.1 mg PO BID #60 tab 05/20/17 [Rx Confirmed 02/09 Last Taken 06/17/17 17:00] budesonide DR - ER 3 mg capsule,delayed,extended release 3 mg PO TID #90 each [Rx Confirmed 02/09/18 Last Taken 06/18/17 10:00] fluoxetine 20 mg capsule 20 mg PO DAILY #30 cap 06/13/17 [Rx Confirmed 02/09/18 Last Taken 06/17/17 21:00] mercaptopurine 50 mg tablet 50 mg PO QDAY #30 tab 06/13/17 [Rx Confirmed Last Taken Unknown] omeprazole 20 mg capsule,delayed release 20 mg PO QDAY #30 cap 06/13/17 [Rx Confirmed 02/09/18 Last Taken 06/18/17 10:00] adalimumab 40 mg/0.8 mL subcutaneous syringe kit 40 mg SUB-Q QWEEK #3 ml [Rx Confirmed 02/09/18 Last Taken Unknown] budesonide-formoterol HFA 160 mcg-4.5 mcg/actuation aerosol inhaler 2 puff INHALATION BID #10.2 g 08/12/17 [Rx Confirmed 02/09/18 Last Taken Unknown] magnesium oxide 400 mg tablet 400 mg PO BID #120 tab 08/12/17 [Rx Confirmed 11/24 Last Taken Unknown] atorvastatin 20 mg tablet 20 mg PO QDAY #90 tab 08/14/17 [Rx Confirmed 02/09/18 Last Taken Unknown] potassium chloride ER 20 mEq tablet,extended release 30 meq PO QID #180 tab 03/25 [Rx Confirmed 02/09/18 Last Taken Unknown] hydrocodone 7.5 mg-acetaminophen 325 mg tablet See Label Instructions PO Q4H PRN #60 tab 12/09/17 [Rx Confirmed 02/09/18 Last Taken Unknown] lisinopril 20 mg tablet 20 mg PO QDAY #30 tab 12/12/17 [Rx Confirmed 02/09/18 Last Taken Unknown] metoprolol tartrate 100 mg tablet 100 mg PO BID #60 tab 12/12/17 [Rx Confirmed 02/09/18 Last Taken Unknown] hydralazine 50 mg tablet 50 mg PO BID #60 tab 01/10/18 [Rx Confirmed 02/09/18 Last Taken Unknown] apixaban 5 mg tablet 5 mg PO BID #60 tab 02/07/18 [Rx Confirmed 02/09/18 Last Taken Unknown] apixaban 5 mg tablet 10 mg PO BID 7 Days #28 tab 02/07/18 [Rx Confirmed Last Taken Unknown] Medical - DS: Hosp Hospital course: Mr. Andrews is a 72 year old Male with multiple medical issues, crohns disease, on immunosuppressants, h/o dvt/pe on anticoagulation, alcoholism with frequent falls, presented to the hospital today for evaluation of a fall , The patent notes that he has been feeling weak for 2 weeks, he has not had a drink for 10 days, and has not had much to eat or drink, last meal was day before yesterday, he notes he is just not feeling right. last night he was trying to go from his living room to the bedroom, while using a walker he tripped and fell down. He was watching TV befor this happened. The patient did not have enough strength to get up, eventually I believe a friend brought him to the hospital. In the hospital he was hemodynamically stable, head CT neg, ekg shows sinus rhythm, occasional pvc, left axis, possible lafb. CT spine shows chr fractures and DJD no acute changes. Labs reviewed, significant for low bicarb at 21, presence of ketones in urine, and low glucose at 58 The patient also reported pain in the right upper quadrant and was tender to palpation in that region. given his h/o trauma, and the fact that he has had multiple falls, recent thrombophlebitis, and is on anticoagulation, CT chest and abdomen were done which were negative for acute intra thoracic or abdominal pathology The patient was admitted to the hospital as it was unsafe for him to be discharged and he needed to be in a rehab facility to work on his strength. The patient was given IV fluids, and encouraged po intake while in the hospital. He has some improvement in therms of his strength but not much. He will be discharged to SNF for rehab. The patient has frequent falls, reports intermittent dizziness, has subclavian artery stenosis on the left side, which has not been addressed. He was seen by Dr Chi, but never went for follow up. I have advised him to follow up with Dr Chi and see if this is the reason behind his dizziness and frequent falls. Rest of the stay in the hospital uneventful, pt to be discharged to SNF for rehab. Discharge diagnosis: Recurrent Falls, - Time Spent with Patient Total time spent providing and/or coordinating discharge services: Greater than 30 minutes Medical - DS: Exam - Constitutional Vitals: Vital Signs Temp Pulse Pulse Resp BP BP Pulse Ox 02/11/18 07:21 16 95 02/11/18 07:19 82 16 95 02/11/18 06:47 99.4 F H 20 147/74 94 02/11/18 03:00 98.3 F 78 20 156/88 96 02/10/18 23:35 98.3 F 80 20 166/93 96 02/10/18 20:00 98.4 F 86 24 H 130/67 96 02/10/18 19:20 106 H 20 02/10/18 16:00 148/82 02/10/18 14:51 80 142/72 02/10/18 14:41 87/57 02/10/18 14:04 96 02/10/18 14:03 96 02/10/18 13:58 88 20 02/10/18 11:47 98.1 F 84 16 84/55 94 Intake and Output 02/10/18 02/11/18 02/11/18 21:59 05:59 13:59 Intake Total 740 / 740 500 / 500 1150 / 1150 Output Total 680 / 680 875 / 875 325 / 325 Balance 60 / 60 -375 / -375 825 / 825 Intake: IV 1000 / 1000 Oral 740 / 740 500 / 500 150 / 150 Output: Void Amount 680 / 680 875 / 875 325 / 325 Other: Meal Dinner 1pk grahm crackers & 1 ice cream Percent of Meal Consumed 90% 100% Feeding Ability Independent Independent Stool Size Moderate Moderate Stool Color Brown Brown Stool Consistency Loose Loose # Voids 1 # Bowel Movements 1 Weight 229 lb Additional comments: Constitutional; Afebrile, cooperative, alert, not in distress. Eyes- No icterus, , No periorbital swelling Ears- Ext ear normal, hearing normal to conversation. Neck- Midline trachea, supple Respiratory system: Air Entry equal on both sides, No crackles or wheezing, no rhonchi. CVS- Rate rhythm regular, S1,S2 heard, no gallop, no rub. 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 Medical - DS: Data Labs on day of discharge: Labs from last 24 hours 02/11/18 02/11/18 04:20 04:20 WBC 3.9 L RBC 2.67 L Hgb 8.7 L Hct 26.6 L MCV 99.7 MCH 32.7 MCHC 32.8 RDW 15.5 H Plt Count 194 MPV 7.0 L Gran % 57.0 Lymph % (Auto) 23.8 [place] % (Auto) 11.8 Eos % (Auto) 6.2 Baso % (Auto) 1.2 Gran # 2.2 Lymph # (Auto) 0.9 L [place] # (Auto) 0.5 Eos # (Auto) 0.2 Baso # (Auto) 0 Sodium 138 Potassium 4.6 Chloride 107 Carbon Dioxide 26 Anion Gap 5.0 L BUN 6 L Creatinine 0.7 GFR Calculation 95 Glucose 85 Uric Acid 6.2 Calcium 7.7 L Phosphorus 2.4 L Magnesium 1.6 Total Bilirubin 0.4 Direct Bilirubin < 0.2 GGT 66 H AST 16 ALT 24 Alkaline Phosphatase 72 Lactate Dehydrogenase 272 H Total Protein 5.0 L Albumin 2.3 L Globulin 2.7 Albumin/Globulin Ratio 0.9 L Triglycerides 76 Medical - DS: A/P - Patient/Caregiver Discharge Instructions Activity: increase activity as tolerated Diet: Cardiac Additional Instructions: Follow up with PCP in 1 week Follow up with Dr Chi in 2-3 weeks for Left subclavian artery stenosis Go to the ER for worsening symptoms, chest pain, shortness of breath or any other acute concerning symptom. Patient is on eliquis 10mg twice daily, this will be continued till 02/21/2018, the dose will then be cut down to 5mg twice daily If pt has blood in stools or black stools, please stop the medication and take the patient to the ER Prescriptions: Hydrocodone/APAP 7.5/325Mg [[place] 7.5-325Mg] See Label Instructions PO Q4H PRN # 60 tab PRN Reason: pain - Follow up Plan Follow up with: Dinesh Mayberry MD [Primary Care Provider] - Hira Chi MD [Physician] - Disposition: Xfer SNF Prognosis: Fair Rehab Potential: Fair I certify that the patient requires SNF services: Yes Overall status at discharge: patient is progressing back to baseline Medical - DS: Qual - VTE Deep Vein Thrombosis/Pulmonary Embolism Present on Admission: No
[2018-02-11] MEDS: THIAMINE 100 MG in 0.9 % SODIUM CHLORIDE 50 ML IV SCH (11:17)
[2018-02-11] MEDS: oxyCODONE HCL 5 MG TABLET PO PRN (11:28)
[2018-02-11] MEDS: FLUDROCORTISONE 0.1 MG TABLET PO SCH (11:28)
== END 2018-02-11 13:10 ==
LOC: ED 10:55 → MEDSUR 10:55
PROVIDERS: ADMIT Internal Medicine; ATTEND Internal Medicine